=== PATIENT | female | born 1990 | race Caucasian/White ===

== ENCOUNTER → 2016-04-23 | Outpatient (CLI) | payer OTHER ==
[~2016-04-23] MED LIST: IBUP600T26 PO; PERC5TAB6 PO; PRENTAB40 PO; TRAM50TA2 PO; TYLE325T5 PO
--- NOTE | 2016-05-01 00:03 | ECWPNPC ---
PATIENT NAME: MARTÍN GILLIS : 1990 GENDER: FEMALE VISIT DATE: 04/23/2016 DISCHARGE DATE: 04/23/16 1218 VISIT LOCKED DATE TIME: PHYSICIAN: AURELIO PICHARDO RESOURCE: AURELIO PICHARDO REASON FOR APPOINTMENT 1. LOW BACK PAIN HISTORY OF PRESENT ILLNESS FALL RISK SCREENIN25 Y/O FEMALE WITH HX OF CHRONIC LBP WITH RADIATION DOWN RIGHT LEG.NOTICED IT INTERMITTENTLY APROXIMATLEY 5 YEARS AGO.TWO YEARS AGO DURING AND AFTER VAGINAL DELIVERY PAIN GOT WORSE.HAD LESI X3 PER PATIENT AT [facility] APROXIMATLEY 6MOS AGO WITH ONLY MILD IMPROVEMENT FOR A SHORT TIME.TWO WEEKS AGO AFTER LIFTING HER SON SHE HAD IMMEDIATE INCREASE IN LOW BACK PAIN WITH SHOOTING PAIN DOWN POSTERIOR RIGHT LEG.RATING PAIN VAS 8/10.DENIESBOWEL OR BLADDER CHANGES.NO RECENT FEVER ILLNESS OR WEIGHT LOSS.USING TRAMADOL PRN PRESCRIBED BY DR. SIU BUT FINDS IT INEFFECTIVE. SCREENING :NO FALLS IN THE PAST YEAR PAIN SCREENING: PATIENT HAS A COMPLAINT OF ACUTE OR CHRONIC PAIN YES CURRENT MEDICATIONS TAKING IBUPROFEN 200 MG TABLET 3 TABLETS ORALLY EVERY 6 HRS PRN TAKING TRAMADOL HCL 50 MG TABLET 2 TABLETS ORALLY EVERY 6 HRS PRN TAKING ORSYTHIA 0.1-20 MG-MCG TABLET ORALLY TAKING ZZZQUIL 50 MG/30ML LIQUID ORALLY BEFORE BEDTIME DISCONTINUED CIPRO 500 MG TABLET 1 TABLET ORALLY EVERY 12 HRS DISCONTINUED PERCOCET 10-650 MG TABLET 1 TABLET NEEDED ORALLY EVERY 6 HRS DISCONTINUED ZOFRAN ODT 4 MG TABLET DISPERSIBLE DIRECTED ORALLY DISCONTINUED STOOL SOFTENER 100 MG CAPSULE 2 CAPSULE ORALLY ONCE A DAY MEDICATION LIST REVIEWED AND RECONCILED WITH THE PATIENT PAST MEDICAL HISTORY KIDNEY STONES GERD HYPERTENSION WHILE PREG. ABNORMAL EKG'S --SEES [facility] ALLERGIES BACTRIM: PERSONALITY CHANGE: ALLERGY CEFZIL: HIVES: ALLERGY SURGICAL HISTORY TYMPANOSTOMY TUBE INSERTION 1993 ARTHROSCOPIC ANKLE SURGERY RIGHT 2007 UPPER ENDOSCOPY 2012 CHOLECYSTECTOMY 2013 APPENDECTOMY 2013 LUMBAR LAMINECTOMY 02/21/15 FAMILY HISTORY FATHER: 44 YRS, DIAGNOSED WITH HYPERTENSION, HEART DISEASE MOTHER: ALIVE, DIAGNOSED WITH OTHER SIBLINGS: ALIVE 1 BROTHER(S) - HEALTHY. 1 SON(S) - HEALTHY. MOM--SKIN CANCER AND BACK PROBLEMS. SOCIAL HISTORY GENERAL: TOBACCO USE ARE YOU A:CURRENT SMOKER HOW MANY CIGARETTES A DAY DO YOU SMOKE?11-20 HOW SOON AFTER YOU WAKE UP DO YOU SMOKE YOUR FIRST CIGARETTE?6-30 MIN PATIENT COUNSELED ON THE DANGERS OF TOBACCO USE AND URGED TO QUIT:04/23/2016 ARE YOU INTERESTED IN QUITTING?NOT READY TO QUIT COUNSELED THE PATIENT ON SMOKING EFFECTS, EDUCATION [id number]/2017 ALCOHOL SCREENING POINTS0 INTERPRETATIONNEGATIVE RECREATIONAL DRUG USE DENIES. CAFFEINE 2-5/DAY. OCCUPATION: UNEMPLOYED. DIET: REGULAR. EXERCISE: WALKS. MARITAL STATUS: SINGLE. NONDENOMINATIONAL: NO ZOROASTRIANISM BELIEFS THAT WOULD IMPACT HEALTH CARE. LANGUAGE: BELIZEAN. EDUCATION: SOME COLLEGE PLAN OF CARE FOR PAIN CENTER REVIEWED WITH PAT. AND SHE VERBALIZED UNDERSTANDING.. LEARNING BARRIERS / SPECIAL NEEDS BARRIERS TO LEARNING?NO HEARING IMPAIRED?NO VISION IMPAIRED?YES :CORRECTIVE LENSES COGNITIVELY IMPAIRED?NO READINESS TO LEARN?YES LEARNING PREFERENCES?YES :DEMONSTRATION/VERBAL INSTRUCTION LEARNING CAPABILITIES PRESENT?NO EMOTIONAL BARRIERS?NO PAIN CLINIC PFS, CLERGY, PUBLIC HEALTH REFERRALS PFS REFERRAL NEEDED?NO CLERGY REFERRAL NEEDED?NO PUBLIC HEALTH REFERRAL NEEDED?NO ADVANCED DIRECTIVES HEALTH CARE PROXY?NO DECLINES INFORMATION AT THIS TIME POWER OF MISSILE CONTROL PILOT?NO DOMESTIC VIOLENCE: NONE. HOSPITALIZATION/MAJOR DIAGNOSTIC PROCEDURE SURGERY RELATED REVIEW OF SYSTEMS CONSTITUTIONAL: ANY CHANGE IN YOUR MEDICAL CONDITION? NO . RECENT ILLNESS DENIES . CHILLS NO . FEVER NO . WEIGHT LOSS DENIES . INFECTION: DO YOU HAVE NEW INFECTIONS? NO . DO YOU HAVE HISTORY OF MRSA? NO . MUSCULOSKELETAL: ANY NEW PATTERNS OF PAIN OR NUMBNESS? NO . SYTEMIC LUPUS NO . GASTROENTEROLOGY: ANY NEW CHANGE IN BOWEL CONTROL? NO . BARRETTS ESOPHAGUS NO . CIRRHOSIS NO . HEPATITIS NO . LIVER FAILURE NO . ACID REFLUX NO . UNEXPLAINED WEIGHT LOSS NO . GENITOURINARY: ANY NEW CHANGE IN BLADDER CONTROL? NO . IS THERE A CHANCE YOU COULD BE ? NO . HEMATOLOGY/LYMPH: DO YOU TAKE ANY BLOOD THINNERS? (FOR EXAMPLE- COUMADIN, PLAVIX, AGGRENOX, PLATEL, PRADAXA, OR XARELTO) NO . WHEN WAS YOUR LAST DOSE? DATE: TIME: . LOW PLATELET COUNT NO . SICKLE CELL DISEASE NO . VON WILLIEBRANDS NO . FACTOR V LEIDEN NO . THALLASEMIA NO . ANEMIA NO . EASY BRUISING NO . NEUROLOGY: HAVE YOU FALLEN IN THE PAST 6 MONTHS? NO . ANY NEW EXTREMITY NUMBNESS OR WEAKNESS? NO . HEAD INJURY NO . DEMENTIA NO . CEREBRAL PALSY NO . MULTIPLE SCLEROSIS NO . DIZZINESS NO . HEADACHE NO . STROKES NO . VERTIGO NO . CARDIOLOGY: DO YOU HAVE A PACEMAKER OR DEFIBRILLATOR? NO . ANGINA NO . HEART ATTACK NO . HEART SURGERY NO . CONGESTIVE HEART FAILURE/FLUID OVERLOAD NO . CHEST PAIN NO, DENIES . HIGH BLOOD PRESSURE NO . IRREGULAR HEART BEAT NO . SHORTNESS OF BREATH DENIES . RESPIRATORY: HAVE YOU BEEN SICK IN THE PAST WEEK? NO . FEVER NO . FLU LIKE SYMPTOMS? NO . CPAP NO . BYPAP NO . ASTHMA NO . EMPHYSEMA NO . CHRONIC LUNG DISEASES NO . SHORTNESS OF BREATH ON EXERTION NO . COUGH NO, DENIES . SHORTNESS OF BREATH DENIES . SNORING NO . INTEGUMENTARY: DO YOU HAVE ANY RASHES OR OPEN SORES? NO . ALLERGIC/IMMUNO: ARE YOU ALLERGIC TO SHELLFISH OR IV DYE? NO . ANY NEW ALLERGIES? NO . PSYCHIATRIC: DO YOU HAVE THOUGHTS OF HURTING YOURSELF OR SOMEONE ELSE? NO . ARE YOU ABUSED, NEGLECTED, OR IN AN UNSAFE ENVIRONMENT? NO . ENDOCRINOLOGY: ARE YOU DIABETIC? NO . THYROID DISORDER NO . OTHER: DO YOU NEED ANY PRESCRIPTIONS? NO . IF YES, PLEASE LIST: ____ . ANY NEW PROBLEMS WITH YOUR MEDICATIONS? NO . WHEN DID YOU LAST EAT? ____ . WHEN DID YOU LAST DRINK? ____ . WHAT DID YOU LAST DRINK? ____ . NAME OF PERSON DRIVING YOU HOME? ____ . DO YOU HAVE ANY OTHER QUESTIONS OR CONCERNS NO . REVIEWED BY: PROVIDER: AURELIO ESQUIVEL . VITAL SIGNS WT 143 LBS, HT 5'5", BMI 23.79 INDEX, BP 131/81 MM HG, HR 83 /MIN, RR 16 /MIN, TEMP 97.7 F, OXYGEN SAT % 100, REVIEWED BY: OLEKSANDR, LMP: 04/04/16. EXAMINATION GENERAL EXAMINATION: LUNGS:LUNG SOUNDS ARE CLEAR. HEART:HEART RATE REGULAR. MUSCULOSKELETAL:*, MUSCLE STRENGTH TESTING 5/5 BILATERAL LOWER EXTREMITIES., PALPATION: POSITIVE FOR PAIN OVER L/S SPINE. POSITIVE FOR PAIN OVER L/S PARASPINALS.SPECIFIC POINT TENDERNESS NOTED OVER RIGHT SIJ.. DIAGNOSTIC:MRI L/S [id number]-[id number] . ASSESSMENTS SACROILIAC JOINT PAIN - M53.3 (PRIMARY) TREATMENT SACROILIAC JOINT PAIN STOP TRAMADOL HCL TABLET, 50 MG, 2 TABLETS, ORALLY, EVERY 6 HRS PRN START SOMA TABLET, 350 MG, 1 TABLET NEEDED, ORALLY, BEFORE BEDTIME PRN MDD1, 30 DAY(S), 30, REFILLS 0 START PERCOCET TABLET, 5-325 MG, 1 TABLET NEEDED, ORALLY, Q8H PRN MDD3, 30 DAY(S), 45, REFILLS 0 INJECTION ANESTHETIC SACROILIAC JOINT PREVENTIVE MEDICINE PAIN CLINIC TEACHING: PROCEDURE TEACHING PRINTED INFORMATION ON SIJ INJECTION PROVIDED AND REVIEWED WITH PATIENT. PATIENT GIVEN OPPORTUNITY TO ASK QUESTIONS.. MEDITATION PATIENT DECLINED PRINTED INFORMATION ON SOMA AND PERCOCET. INFORMATION ON MEDICATIONS WERE REVIEWED WITH PATIENT AND SHE VERBALIZED UNDERSTANDING. PATIENT GIVEN OPPORTUNITY TO ASK QUESTIONS.. PROCEDURE CODES FA211 ESTABILISHED PATIENT LOCATED WITHIN [facility] CHARGE DISPOSITION & COMMUNICATION FOLLOW UP 2WK POST (REASON: RIGHT SIJ) ELECTRONICALLY SIGNED BY ALVIN NIELSON ON 04/30/2016 AT 05:03 PM EST DISCLAIMER : THIS IS A VISIT SUMMARY EXTRACTED FROM THE [employer] CHART. IT IS NOT A COPY OF THE [employer] PROGRESS NOTE. THAI
== END ==
LOC: M PAIN 11:20
PROVIDERS: ATTEND Nurse Practitioner Family
DX: M53.3 Sacrococcygeal disorders, not elsewhere classified (principal); G89.29 Other chronic pain; M54.5 Low back pain; Z79.891 Long term (current) use of opiate analgesic; Z79.2 Long term (current) use of antibiotics; Z79.3 Long term (current) use of hormonal contraceptives; Z72.0 Tobacco use; Z86.79 Personal history of other diseases of the circulatory system; K21.9 Gastro-esophageal reflux disease without esophagitis; Z87.442 Personal history of urinary calculi; Z87.59 Personal history of other complications of pregnancy, childbirth and the puerperium; Z88.1 Allergy status to other antibiotic agents

== ENCOUNTER → 2016-05-03 | Outpatient (REF) | payer OTHER | LOC: M LAB REF 11:15 | PROVIDERS: ATTEND Physician Assistant Medical | DX: R50.9 Fever, unspecified (principal) ==

== ENCOUNTER → 2016-05-28 | Outpatient (REF) | payer OTHER | LOC: M SMT 17:03 | PROVIDERS: ATTEND Nurse Practitioner Women's Health | DX: R30.0 Dysuria (principal) ==

== ENCOUNTER → 2016-07-13 | Outpatient (CLI) | payer OTHER ==
[~2016-07-13] MED LIST changes: +BUPIVACAINE HCL 0.25% 30 ML VIAL As Ordered ONE; +ISOVUE-M 300 61% 15ML VIAL (Q9967) As Ordered ONE; +LIDOCAINE 1% SDV INJ 30 ML VIAL As Ordered ONE; +TRIAMCINOLONE ACETONIDE SUSP 40 MG/ML VIAL (J3301) As Ordered ONE; +diazePAM 5 MG TAB As Ordered ONE; +oxyCODONE 5MG TAB As Ordered ONE
--- NOTE | 2016-07-13 17:48 | REP ---
Partial SI joint series: Five views: History: Bilateral SI joint injection for pain. 20 seconds of fluoroscopy time is reported. Findings: A sequence of five fluoroscopically obtained intraprocedural spot radiographs of the SI joints document needle positions and contrast injections associated with SI joint injection procedure. Signed by Moreno Emanuel MD 07/13/2016 06:21 P
--- NOTE | 2016-07-25 23:42 | ECWPNPC ---
PATIENT NAME: MARTÍN GILLIS : 1990 GENDER: FEMALE VISIT DATE: 07/13/2016 DISCHARGE DATE: 07/13/16 1432 VISIT LOCKED DATE TIME: PHYSICIAN: NANCY FUNG RESOURCE: NANCY FUNG REASON FOR APPOINTMENT 1. RIGHT SIJ HISTORY OF PRESENT ILLNESS HISTORY OF PRESENT ILLNESS: PAIN THE PATIENT DESCRIBES THE PAIN... FALL RISK SCREENING: SCREENING :NO FALLS IN THE PAST YEAR CURRENT MEDICATIONS TAKING LIDOCAINE HCL JELLY LONGTERM 2 % JELLY 1 APPLICATION TO AFFECTED AREA NEEDED INTRAVESICALLY PRIOR TO PROCEDURE TAKING IBUPROFEN 200 MG TABLET 3 TABLETS ORALLY EVERY 6 HRS PRN, NOTES: 2 DAYS OR SO TAKING ZZZQUIL 50 MG/30ML LIQUID ORALLY BEFORE BEDTIME, NOTES: 2 NIGHTS AGO TAKING PREVIFEM 0.25-35 MG-MCG TABLET 1 TABLET ORALLY ONCE A DAY, NOTES: 2030PM 07/12/16 TAKING TRAMADOL HCL 50 MG TABLET 2 ORALLY Q6H PRN MDD4, NOTES: 0900 07/13/16 NOT-TAKING PERCOCET 5-325 MG TABLET 1 TABLET NEEDED ORALLY Q8H PRN MDD3 NOT-TAKING CIPRO 500 MG TABLET 1 TABLET ORALLY DIRECTED NOT-TAKING SOMA 350 MG TABLET 1 TABLET NEEDED ORALLY BEFORE BEDTIME PRN MDD1 NOT-TAKING ORSYTHIA 0.1-20 MG-MCG TABLET ORALLY NOT-TAKING ROBAXIN 500 MG TABLET 1 ORALLY Q8H PRN MDD3 MEDICATION LIST REVIEWED AND RECONCILED WITH THE PATIENT PAST MEDICAL HISTORY KIDNEY STONES GERD HYPERTENSION WHILE PREG. ABNORMAL EKG'S --SEES [facility] ALLERGIES BACTRIM: PERSONALITY CHANGE: ALLERGY CEFZIL: HIVES: ALLERGY REVIEW OF SYSTEMS CONSTITUTIONAL: ANY CHANGE IN YOUR MEDICAL CONDITION? NO . CHILLS NO . FEVER NO . INFECTION: DO YOU HAVE NEW INFECTIONS? NO . DO YOU HAVE HISTORY OF MRSA? NO . MUSCULOSKELETAL: ANY NEW PATTERNS OF PAIN OR NUMBNESS? NO . GASTROENTEROLOGY: ANY NEW CHANGE IN BOWEL CONTROL? NO . GENITOURINARY: ANY NEW CHANGE IN BLADDER CONTROL? NO . IS THERE A CHANCE YOU COULD BE ? NO . HEMATOLOGY/LYMPH: DO YOU TAKE ANY BLOOD THINNERS? (FOR EXAMPLE- COUMADIN, PLAVIX, AGGRENOX, PLATEL, PRADAXA, OR XARELTO) NO . WHEN WAS YOUR LAST DOSE? DATE: TIME: . NEUROLOGY: HAVE YOU FALLEN IN THE PAST 6 MONTHS? NO . ANY NEW EXTREMITY NUMBNESS OR WEAKNESS? NO . CARDIOLOGY: DO YOU HAVE A PACEMAKER OR DEFIBRILLATOR? NO . RESPIRATORY: HAVE YOU BEEN SICK IN THE PAST WEEK? NO . FEVER NO . FLU LIKE SYMPTOMS? NO . COUGH NO . INTEGUMENTARY: DO YOU HAVE ANY RASHES OR OPEN SORES? NO . ALLERGIC/IMMUNO: ARE YOU ALLERGIC TO SHELLFISH OR IV DYE? NO . ANY NEW ALLERGIES? NO . PSYCHIATRIC: DO YOU HAVE THOUGHTS OF HURTING YOURSELF OR SOMEONE ELSE? NO . ARE YOU ABUSED, NEGLECTED, OR IN AN UNSAFE ENVIRONMENT? NO . ENDOCRINOLOGY: ARE YOU DIABETIC? NO . OTHER: DO YOU NEED ANY PRESCRIPTIONS? NO . IF YES, PLEASE LIST: ____ . ANY NEW PROBLEMS WITH YOUR MEDICATIONS? NO . WHEN DID YOU LAST EAT? 1200 AM . WHEN DID YOU LAST DRINK? 4 AM . WHAT DID YOU LAST DRINK? SIP OF JUICE . NAME OF PERSON DRIVING YOU HOME? CAESAR . DO YOU HAVE ANY OTHER QUESTIONS OR CONCERNS NO . REVIEWED BY: PROVIDER: . VITAL SIGNS WT 144 LBS, HT 5'5", BMI 23.96 INDEX, BP 122/83 MM HG, HR 98 /MIN, RR 16 /MIN, TEMP 97.7 F, OXYGEN SAT % 99%, NA INITIALS SC 11:51, REVIEWED BY: NL. ASSESSMENTS SACROILIITIS, NOT ELSEWHERE CLASSIFIED - M46.1 (PRIMARY) PROCEDURES PN SI PRE PROCEDURE DIAGNOSIS SACROILIITIS, SACROILIAC JOINT DYSFUNCTION POST PROCEDURE DIAGNOSIS SACROILIITIS, SACROILIAC JOINT DYSFUNCTION PROCEDURE BILATERAL SACROILIAC JOINT BLOCK SURGEON DR. NANCY FUNG COATER NONE ANESTHESIA LOCAL PRE PROCEDURE NOTE PATIENT WITH HISTORY OF CHRONIC LOW BACK PAIN. I EVALUATED THE PATIENT AND REVIEWED THE CHART. I WENT OVER THE RISKS, ALTERNATIVES, AND BENEFITS ASSOCIATED WITH THIS PROCEDURE. THE PATIENT WOULD LIKE TO PROCEED AND GAVE CONSENT TO PERFORM THE PROCEDURE. THE PATIENT DENIES UNEXPLAINABLE WEIGHT LOSS, FEVER, CHILLS, OR NEW CHANGES IN URINARY OR BOWEL CONTROL DESCRIPTION OF PROCEDURE THE PATIENT WAS BROUGHT TO THE PROCEDURE ROOM AND PLACED IN THE PRONE POSITION. THE LUMBOSACRAL AREA WAS CLEANED WITH CHLORAPREP SOLUTION AND DRAPED ASEPTICALLY. THE PROCEDURE WAS DONE UNDER STERILE CONDITIONS. I CHECKED LATERALITY AND THE LEVEL WHERE THE PROCEDURE WAS GOING TO BE PERFORMED WITH THE PATIENT AND THE SUPPORTING STAFF AT THE MOMENT OF THE TIME OUT IN THE PROCEDURE ROOM. UNDER FLUOROSCOPIC GUIDANCE, TARGET POINT WAS SELECTED AT THE LOWER BORDER OF THE RIGHT AND LEFT SACROILIAC JOINT. TARGET POINT WAS SELECTED AFTER MEDIAL ROTATION AND TILT OF THE MAGNIFIER OF THE C-ARM. LIDOCAINE WAS USED TO NUMB THE SKIN AND SUBCUTANEOUS TISSUE BELOW IT. A SPINAL NEEDLE, 22-GAUGE, WAS ADVANCED UNDER FLUOROSCOPIC GUIDANCE AND FOLLOWING PATIENT FEEDBACK UNTIL THE TARGET AREA WAS TOUCHED. THE POSITION OF THE NEEDLE WAS VERIFIED WITH AP AND LATERAL VIEWS. AFTER PROPER POSITION OF THE NEEDLE WAS ACHIEVED, ISOVUE M DYE 30%, 0.25 ML, WAS INJECTED SHOWING SPREAD OF THE DYE. THEN, A SOLUTION OF 20 MG OF KENALOG WAS INJECTED IN RIGHT JOINT WITH 3 ML OF BUPIVACAINE 0.125%. THERE WAS NO EVIDENCE OF BLOOD, PARESTHESIA OR CEREBROSPINAL FLUID DURING THE PROCEDURE. THE PATIENT WAS SENT TO THE RECOVERY ROOM. THE PATIENT WAS MOVING THE EXTREMITIES AND DOING WELL. THERE WAS NO COMPLICATION DURING THE PROCEDURE. FLUOROSCOPY TIME WAS 20 SECONDS POST PROCEDURE NOTE THE PATIENT WILL BE SEEN IN A FOLLOW UP IN THE NEXT FEW WEEKS. INSTRUCTIONS WERE GIVEN, QUESTIONS WERE ANSWERED, AND THE PATIENT EXPRESSED UNDERSTANDING AND AGREED WITH THE PLAN. I, JADON IBRAHIM, DOCUMENTED THE ABOVE INFORMATION ACTING A SCRIBE FOR DR. FUNG. I HAVE REVIEWED THE ABOVE DOCUMENT, WRITTEN BY JADON AGUILAR AND I VERIFY THAT IT IS [facility] FLUORO GUIDANCE (PAIN)[id number] PROCEDURE CODES 21156 INJECT SACROILIAC JOINT 6045F RADXPS IN END [id number] PXD DISPOSITION & COMMUNICATION FOLLOW UP 3 WEEKS ELECTRONICALLY SIGNED BY NANCY FUNG MD ON 07/25/2016 AT 06:45 PM EDT DISCLAIMER : THIS IS A VISIT SUMMARY EXTRACTED FROM THE [employer] CHART. IT IS NOT A COPY OF THE [employer] PROGRESS NOTE. MTDD
== END ==
LOC: M PAIN 11:40
PROVIDERS: ATTEND Anesthesiology
DX: G89.29 Other chronic pain (principal); M54.5 Low back pain; M46.1 Sacroiliitis, not elsewhere classified; Z79.891 Long term (current) use of opiate analgesic; Z79.899 Other long term (current) drug therapy; K21.9 Gastro-esophageal reflux disease without esophagitis; N20.0 Calculus of kidney; Z88.1 Allergy status to other antibiotic agents
CPT/HCPCS: G0260; J3301; Q9967

== ENCOUNTER → 2016-08-06 | Outpatient (CLI) | payer OTHER ==
[~2016-08-06] MED LIST changes: -BUPIVACAINE HCL 0.25% 30 ML VIAL As Ordered ONE; -ISOVUE-M 300 61% 15ML VIAL (Q9967) As Ordered ONE; -LIDOCAINE 1% SDV INJ 30 ML VIAL As Ordered ONE; -TRIAMCINOLONE ACETONIDE SUSP 40 MG/ML VIAL (J3301) As Ordered ONE; -diazePAM 5 MG TAB As Ordered ONE; -oxyCODONE 5MG TAB As Ordered ONE
--- NOTE | 2016-08-26 01:29 | ECWPNPC ---
PATIENT NAME: MARTÍN GILLIS : 1990 GENDER: FEMALE VISIT DATE: 08/06/2016 DISCHARGE DATE: 08/06/16 1541 VISIT LOCKED DATE TIME: PHYSICIAN: AURELIO PICHARDO RESOURCE: AURELIO PICHARDO REASON FOR APPOINTMENT 1. POST PROCEDURE HISTORY OF PRESENT ILLNESS HISTORY OF PRESENT ILLNESS: HERE FOR POST PROCEDURE F/U.HAD RIGHT SIJ ON 07-13-16.HISTORY OF LOW BACK PAIN AND RIGHT LEG PAIN.REPORTS SMALL AMOUNT OF RELIEF X 2 WEEKS.RATING PAIN VAS 7/10.CURRENTLY USING TRAMADOL 4-6 TABLETS PER DAY AND HAS BEEN USING THIS AMOUNT FOR SEVERAL YEARS.DISCUSSED POTENTIAL ADVERSE EFFECTS OF CHRONIC DAILY OPIOD EXPOSURE.SHE IS WILLING TO CUT BACK . PAIN THE PATIENT DESCRIBES THE PAIN... FALL RISK SCREENING: SCREENING :NO FALLS IN THE PAST YEAR CURRENT MEDICATIONS TAKING IBUPROFEN 200 MG TABLET 3 TABLETS ORALLY EVERY 6 HRS PRN, NOTES: 2 DAYS OR SO TAKING ZZZQUIL 50 MG/30ML LIQUID ORALLY BEFORE BEDTIME, NOTES: 2 NIGHTS AGO TAKING PREVIFEM 0.25-35 MG-MCG TABLET 1 TABLET ORALLY ONCE A DAY, NOTES: 2030PM 07/12/16 TAKING TRAMADOL HCL 50 MG TABLET 2 ORALLY Q6H PRN MDD4, NOTES: 0900 07/13/16 NOT-TAKING LIDOCAINE HCL JELLY MCFP 2 % JELLY 1 APPLICATION TO AFFECTED AREA NEEDED INTRAVESICALLY PRIOR TO PROCEDURE NOT-TAKING PERCOCET 5-325 MG TABLET 1 TABLET NEEDED ORALLY Q8H PRN MDD3 NOT-TAKING CIPRO 500 MG TABLET 1 TABLET ORALLY DIRECTED NOT-TAKING SOMA 350 MG TABLET 1 TABLET NEEDED ORALLY BEFORE BEDTIME PRN MDD1 NOT-TAKING ORSYTHIA 0.1-20 MG-MCG TABLET ORALLY NOT-TAKING ROBAXIN 500 MG TABLET 1 ORALLY Q8H PRN MDD3 MEDICATION LIST REVIEWED AND RECONCILED WITH THE PATIENT PAST MEDICAL HISTORY KIDNEY STONES GERD HYPERTENSION WHILE PREG. ABNORMAL EKG'S --SEES [facility] ALLERGIES BACTRIM: PERSONALITY CHANGE: ALLERGY CEFZIL: HIVES: ALLERGY SURGICAL HISTORY TYMPANOSTOMY TUBE INSERTION 1993 ARTHROSCOPIC ANKLE SURGERY RIGHT 2007 UPPER ENDOSCOPY 2012 CHOLECYSTECTOMY 2013 APPENDECTOMY 2013 LUMBAR LAMINECTOMY 02/21/15 HOSPITALIZATION/MAJOR DIAGNOSTIC PROCEDURE SURGERY RELATED REVIEW OF SYSTEMS CONSTITUTIONAL: ANY CHANGE IN YOUR MEDICAL CONDITION? NO . CHILLS NO . FEVER NO . INFECTION: DO YOU HAVE NEW INFECTIONS? NO . DO YOU HAVE HISTORY OF MRSA? NO . MUSCULOSKELETAL: ANY NEW PATTERNS OF PAIN OR NUMBNESS? YES. PT STATES R SIJ DONE 07/13/16. PRE PROCEDURE PAIN WAS 8/10. POST PROCEDURE 07/15, CREEPING UP TO 09/14 . GASTROENTEROLOGY: ANY NEW CHANGE IN BOWEL CONTROL? NO . GENITOURINARY: ANY NEW CHANGE IN BLADDER CONTROL? NO . IS THERE A CHANCE YOU COULD BE ? NO . HEMATOLOGY/LYMPH: DO YOU TAKE ANY BLOOD THINNERS? (FOR EXAMPLE- COUMADIN, PLAVIX, AGGRENOX, PLATEL, PRADAXA, OR XARELTO) NO . WHEN WAS YOUR LAST DOSE? DATE: TIME: . NEUROLOGY: HAVE YOU FALLEN IN THE PAST 6 MONTHS? NO . ANY NEW EXTREMITY NUMBNESS OR WEAKNESS? NO . CARDIOLOGY: DO YOU HAVE A PACEMAKER OR DEFIBRILLATOR? NO . RESPIRATORY: HAVE YOU BEEN SICK IN THE PAST WEEK? NO . FEVER NO . FLU LIKE SYMPTOMS? NO . COUGH NO . INTEGUMENTARY: DO YOU HAVE ANY RASHES OR OPEN SORES? NO . ALLERGIC/IMMUNO: ARE YOU ALLERGIC TO SHELLFISH OR IV DYE? NO . ANY NEW ALLERGIES? NO . PSYCHIATRIC: DO YOU HAVE THOUGHTS OF HURTING YOURSELF OR SOMEONE ELSE? NO . ARE YOU ABUSED, NEGLECTED, OR IN AN UNSAFE ENVIRONMENT? NO . ENDOCRINOLOGY: ARE YOU DIABETIC? NO . OTHER: DO YOU NEED ANY PRESCRIPTIONS? YES, TRAMADOL . IF YES, PLEASE LIST: ____ . ANY NEW PROBLEMS WITH YOUR MEDICATIONS? NO . WHEN DID YOU LAST EAT? ____ . WHEN DID YOU LAST DRINK? ____ . WHAT DID YOU LAST DRINK? ____ . NAME OF PERSON DRIVING YOU HOME? ____ . DO YOU HAVE ANY OTHER QUESTIONS OR CONCERNS NO . REVIEWED BY: PROVIDER: AURELIO ESQUIVEL . VITAL SIGNS WT 143.0 LBS, HT 5'5", BMI 23.79 INDEX, BP 128/84 MM HG, HR 77 /MIN, RR 16 /MIN, TEMP 98.3 F, OXYGEN SAT % 98%, SAFE IN ENV? (Y/N) Y, NA INITIALS TL 1445, REVIEWED BY: EM. EXAMINATION GENERAL EXAMINATION: LUNGS:LUNG SOUNDS ARE CLEAR. HEART:HEART RATE REGULAR. MUSCULOSKELETAL:*, MUSCLE STRENGTH TESTING 5/5 BILATERAL LOWER EXTREMITIES., PALPATION: POSITIVE FOR PAIN OVER L/S SPINE. POSITIVE FOR PAIN OVER L/S PARASPINALS.SPECIFIC POINT TENDERNESS NOTED OVER RIGHT SIJ.. DIAGNOSTIC:MRI L/S [id number]--REVIEWED . ASSESSMENTS SACROILIAC JOINT PAIN - M53.3 (PRIMARY) POST LAMINECTOMY SYNDROME - M96.1 TREATMENT SACROILIAC JOINT PAIN REFILL TRAMADOL HCL TABLET, 50 MG, 2, ORALLY, Q6H PRN MDD4, 30 DAY(S), 120, REFILLS 0, NOTES: 0900 07/13/16 NOTES: REQUEST RIGHT SIJ. PROCEDURE CODES FA211 ESTABILISHED PATIENT [facility] CHARGE DISPOSITION & COMMUNICATION FOLLOW UP 2WK POST (REASON: REQUEST RIGHT SIJ) ELECTRONICALLY SIGNED BY ALVIN NIELSON ON 08/25/2016 AT 05:05 PM EDT DISCLAIMER : THIS IS A VISIT SUMMARY EXTRACTED FROM THE [employer] CHART. IT IS NOT A COPY OF THE [employer] PROGRESS NOTE. THAI
== END ==
LOC: M PAIN 14:40
PROVIDERS: ATTEND Nurse Practitioner Family
DX: M53.3 Sacrococcygeal disorders, not elsewhere classified (principal); M96.1 Postlaminectomy syndrome, not elsewhere classified; Z79.891 Long term (current) use of opiate analgesic; Z79.899 Other long term (current) drug therapy; Z88.1 Allergy status to other antibiotic agents

== ENCOUNTER → 2016-08-17 | Outpatient (CLI) | payer OTHER ==
[~2016-08-17] MED LIST changes: +BUPIVACAINE HCL 0.25% 30 ML VIAL As Ordered ONE; +IBUP-1022 PO; -IBUP600T26 PO; +ISOVUE-M 300 61% 15ML VIAL (Q9967) As Ordered ONE; +LIDOCAINE 1% SDV INJ 30 ML VIAL As Ordered ONE; +PERC5TAB12 PO; -PERC5TAB6 PO; +TRIAMCINOLONE ACETONIDE SUSP 40 MG/ML VIAL (J3301) As Ordered ONE; +diazePAM 5 MG TAB As Ordered ONE; +oxyCODONE 5MG TAB As Ordered ONE
--- NOTE | 2016-08-17 14:44 | REP ---
FLUOROSCOPIC GUIDANCE: The images were reviewed with Dr. Cam. The patient has a history of low back pain. The portable C-arm was provided in the OR for Dr. Hernandez for fluoroscopic guidance. Two intraoperative fluoroscopic spot films are obtained for needle placement verification for right sacroiliac joint injection. The films are on the PACS system and are available for review. 18 seconds of fluoroscopy time was utilized for this procedure. Reviewed by ELISABETH Valentin 08/17/2016 05:04 PEdited and Signed by Sekou Cam MD 08/17/2016 05:15 P
--- NOTE | 2016-08-29 00:06 | ECWPNPC ---
PATIENT NAME: MARTÍN GILLIS : 1990 GENDER: FEMALE VISIT DATE: 08/17/2016 DISCHARGE DATE: 08/17/16 1155 VISIT LOCKED DATE TIME: PHYSICIAN: NANCY UFNG RESOURCE: NANCY FUNG REASON FOR APPOINTMENT 1. RIGHT SIJ HISTORY OF PRESENT ILLNESS HISTORY OF PRESENT ILLNESS: PAIN THE PATIENT DESCRIBES THE PAIN... FALL RISK SCREENING: SCREENING :NO FALLS IN THE PAST YEAR CURRENT MEDICATIONS TAKING IBUPROFEN 200 MG TABLET 3 TABLETS ORALLY EVERY 6 HRS PRN, NOTES: 08-15-16 0900 TAKING ZZZQUIL 50 MG/30ML LIQUID ORALLY BEFORE BEDTIME, NOTES: 2100 TAKING PREVIFEM 0.25-35 MG-MCG TABLET 1 TABLET ORALLY ONCE A DAY, NOTES: 08-17-16 0600 TAKING TRAMADOL HCL 50 MG TABLET 2 ORALLY Q6H PRN MDD4, NOTES: 08-16-16 1800 NOT-TAKING LIDOCAINE HCL JELLY CHCF 2 % JELLY 1 APPLICATION TO AFFECTED AREA NEEDED INTRAVESICALLY PRIOR TO PROCEDURE NOT-TAKING PERCOCET 5-325 MG TABLET 1 TABLET NEEDED ORALLY Q8H PRN MDD3 NOT-TAKING CIPRO 500 MG TABLET 1 TABLET ORALLY DIRECTED NOT-TAKING SOMA 350 MG TABLET 1 TABLET NEEDED ORALLY BEFORE BEDTIME PRN MDD1 NOT-TAKING ORSYTHIA 0.1-20 MG-MCG TABLET ORALLY NOT-TAKING ROBAXIN 500 MG TABLET 1 ORALLY Q8H PRN MDD3 MEDICATION LIST REVIEWED AND RECONCILED WITH THE PATIENT PAST MEDICAL HISTORY KIDNEY STONES GERD HYPERTENSION WHILE PREG. ABNORMAL EKG'S --SEES [facility] ALLERGIES BACTRIM: PERSONALITY CHANGE: ALLERGY CEFZIL: HIVES: ALLERGY REVIEW OF SYSTEMS REVIEWED BY: PROVIDER: . CONSTITUTIONAL: ANY CHANGE IN YOUR MEDICAL CONDITION? NO . CHILLS NO . FEVER NO . INFECTION: DO YOU HAVE NEW INFECTIONS? NO . DO YOU HAVE HISTORY OF MRSA? NO . MUSCULOSKELETAL: ANY NEW PATTERNS OF PAIN OR NUMBNESS? NO . GASTROENTEROLOGY: ANY NEW CHANGE IN BOWEL CONTROL? NO . GENITOURINARY: ANY NEW CHANGE IN BLADDER CONTROL? NO . IS THERE A CHANCE YOU COULD BE ? NO . HEMATOLOGY/LYMPH: DO YOU TAKE ANY BLOOD THINNERS? (FOR EXAMPLE- COUMADIN, PLAVIX, AGGRENOX, PLATEL, PRADAXA, OR XARELTO) NO . WHEN WAS YOUR LAST DOSE? DATE: TIME: . NEUROLOGY: HAVE YOU FALLEN IN THE PAST 6 MONTHS? NO . ANY NEW EXTREMITY NUMBNESS OR WEAKNESS? NO . CARDIOLOGY: DO YOU HAVE A PACEMAKER OR DEFIBRILLATOR? NO . RESPIRATORY: HAVE YOU BEEN SICK IN THE PAST WEEK? NO . FEVER NO . FLU LIKE SYMPTOMS? NO . COUGH NO . INTEGUMENTARY: DO YOU HAVE ANY RASHES OR OPEN SORES? NO . ALLERGIC/IMMUNO: ARE YOU ALLERGIC TO SHELLFISH OR IV DYE? NO . ANY NEW ALLERGIES? NO . PSYCHIATRIC: DO YOU HAVE THOUGHTS OF HURTING YOURSELF OR SOMEONE ELSE? NO . ARE YOU ABUSED, NEGLECTED, OR IN AN UNSAFE ENVIRONMENT? NO . ENDOCRINOLOGY: ARE YOU DIABETIC? NO . OTHER: DO YOU NEED ANY PRESCRIPTIONS? NO . IF YES, PLEASE LIST: ____ . ANY NEW PROBLEMS WITH YOUR MEDICATIONS? NO . WHEN DID YOU LAST EAT? 2 AM . WHEN DID YOU LAST DRINK? 2 AM . WHAT DID YOU LAST DRINK? TEA . NAME OF PERSON DRIVING YOU HOME? CAESAR . DO YOU HAVE ANY OTHER QUESTIONS OR CONCERNS NO . VITAL SIGNS WT 146.0 LBS, HT 5'5", BMI 24.29 INDEX, BP 118/67 MM HG, HR 106/68 /MIN, RR 16 /MIN, TEMP 98.7 F, OXYGEN SAT % 98%, NA INITIALS TL 0926, REVIEWED BY: KG. ASSESSMENTS SACROILIITIS, NOT ELSEWHERE CLASSIFIED - M46.1 (PRIMARY) PROCEDURES PN SI PRE PROCEDURE DIAGNOSIS SACROILIITIS, SACROILIAC JOINT DYSFUNCTION POST PROCEDURE DIAGNOSIS SACROILIITIS, SACROILIAC JOINT DYSFUNCTION PROCEDURE RIGHT SACROILIAC JOINT BLOCK SURGEON DR. NANCY FUNG LEAD PROCESS ENGINEER NONE ANESTHESIA LOCAL PRE PROCEDURE NOTE PATIENT WITH HISTORY OF CHRONIC LOW BACK PAIN. I EVALUATED THE PATIENT AND REVIEWED THE CHART. I WENT OVER THE RISKS, ALTERNATIVES, AND BENEFITS ASSOCIATED WITH THIS PROCEDURE. THE PATIENT WOULD LIKE TO PROCEED AND GAVE CONSENT TO PERFORM THE PROCEDURE. THE PATIENT DENIES UNEXPLAINABLE WEIGHT LOSS, FEVER, CHILLS, OR NEW CHANGES IN URINARY OR BOWEL CONTROL DESCRIPTION OF PROCEDURE THE PATIENT WAS BROUGHT TO THE PROCEDURE ROOM AND PLACED IN THE PRONE POSITION. THE LUMBOSACRAL AREA WAS CLEANED WITH CHLORAPREP SOLUTION AND DRAPED ASEPTICALLY. THE PROCEDURE WAS DONE UNDER STERILE CONDITIONS. I CHECKED LATERALITY AND THE LEVEL WHERE THE PROCEDURE WAS GOING TO BE PERFORMED WITH THE PATIENT AND THE SUPPORTING STAFF AT THE MOMENT OF THE TIME OUT IN THE PROCEDURE ROOM. UNDER FLUOROSCOPIC GUIDANCE, TARGET POINT WAS SELECTED AT THE LOWER BORDER OF THE RIGHT SACROILIAC JOINT. TARGET POINT WAS SELECTED AFTER MEDIAL ROTATION AND TILT OF THE MAGNIFIER OF THE C-ARM. LIDOCAINE WAS USED TO NUMB THE SKIN AND SUBCUTANEOUS TISSUE BELOW IT. A SPINAL NEEDLE, 22-GAUGE, WAS ADVANCED UNDER FLUOROSCOPIC GUIDANCE AND FOLLOWING PATIENT FEEDBACK UNTIL THE TARGET AREA WAS TOUCHED. THE POSITION OF THE NEEDLE WAS VERIFIED WITH AP AND LATERAL VIEWS. AFTER PROPER POSITION OF THE NEEDLE WAS ACHIEVED, ISOVUE M DYE 30%, 0.25 ML, WAS INJECTED SHOWING SPREAD OF THE DYE. THEN, A SOLUTION OF 20 MG OF KENALOG WAS INJECTED IN RIGHT JOINT WITH 3 ML OF BUPIVACAINE 0.125%. THERE WAS NO EVIDENCE OF BLOOD, PARESTHESIA OR CEREBROSPINAL FLUID DURING THE PROCEDURE. THE PATIENT WAS SENT TO THE RECOVERY ROOM. THE PATIENT WAS MOVING THE EXTREMITIES AND DOING WELL. THERE WAS NO COMPLICATION DURING THE PROCEDURE. FLUOROSCOPY TIME WAS 18 SECONDS POST PROCEDURE NOTE THE PATIENT WILL BE SEEN IN A FOLLOW UP IN THE NEXT FEW WEEKS. INSTRUCTIONS WERE GIVEN, QUESTIONS WERE ANSWERED, AND THE PATIENT EXPRESSED UNDERSTANDING AND AGREED WITH THE PLAN. I, JADON IBRAHIM, DOCUMENTED THE ABOVE INFORMATION ACTING A SCRIBE FOR DR. FUNG. I, DR. FUNG, HAVE REVIEWED THE ABOVE DOCUMENT, SCRIBED BY JADON IBRAHIM, AND I VERIFY THAT IT IS [facility]NOST[facility] FLUORO GUIDANCE (PAIN)[id number] PROCEDURE CODES 62453 INJECT SACROILIAC JOINT 6045F RADXPS IN END [id number] PXD DISPOSITION & COMMUNICATION FOLLOW UP 3 WEEKS ELECTRONICALLY SIGNED BY NANCY FUNG MD ON 08/28/2016 AT 08:26 AM EDT DISCLAIMER : THIS IS A VISIT SUMMARY EXTRACTED FROM THE [employer] CHART. IT IS NOT A COPY OF THE [employer] PROGRESS NOTE. MTDD
== END ==
LOC: M PAIN 09:00
PROVIDERS: ATTEND Anesthesiology
DX: G89.29 Other chronic pain (principal); M54.5 Low back pain; M46.1 Sacroiliitis, not elsewhere classified; Z79.891 Long term (current) use of opiate analgesic; Z79.3 Long term (current) use of hormonal contraceptives; Z88.1 Allergy status to other antibiotic agents

== ENCOUNTER → 2016-08-31 | Outpatient (CLI) | payer OTHER ==
[~2016-08-31] MED LIST changes: -BUPIVACAINE HCL 0.25% 30 ML VIAL As Ordered ONE; -ISOVUE-M 300 61% 15ML VIAL (Q9967) As Ordered ONE; -LIDOCAINE 1% SDV INJ 30 ML VIAL As Ordered ONE; -TRIAMCINOLONE ACETONIDE SUSP 40 MG/ML VIAL (J3301) As Ordered ONE; -diazePAM 5 MG TAB As Ordered ONE; -oxyCODONE 5MG TAB As Ordered ONE
--- NOTE | 2016-09-01 01:57 | ECWPNPC ---
PATIENT NAME: MARTÍN GILLIS : 1990 GENDER: FEMALE VISIT DATE: 08/31/2016 DISCHARGE DATE: 08/31/16 1615 VISIT LOCKED DATE TIME: PHYSICIAN: AURELIO PICHARDO RESOURCE: AURELIO PICHARDO REASON FOR APPOINTMENT 1. POST SIJ HISTORY OF PRESENT ILLNESS HISTORY OF PRESENT ILLNESS: HERE FOR POST PROCEDURE F/U.HAD RIGHT SIJ ON 08-17-16.REPORTS NO IMPROVEMENT AND SOME AGGREVATION IN PAIN.RATING PAIN VAS 9/10.CURRENTLY USING TRAMADOL 4-6 TABLETS PER DAY AND HAS BEEN USING THIS AMOUNT FOR SEVERAL YEARS.STATES THIS IS HELPFUL.WAS UNABLE TO TOLERATE PERCOCET DUE TO FATIGUE. PAIN THE PATIENT DESCRIBES THE PAIN... THE PATIENT DESCRIBES THE PAIN... FALL RISK SCREENING: SCREENING :NO FALLS IN THE PAST YEAR CURRENT MEDICATIONS TAKING IBUPROFEN 200 MG TABLET 3 TABLETS ORALLY EVERY 6 HRS PRN TAKING ZZZQUIL 50 MG/30ML LIQUID ORALLY BEFORE BEDTIME TAKING PREVIFEM 0.25-35 MG-MCG TABLET 1 TABLET ORALLY ONCE A DAY TAKING TRAMADOL HCL 50 MG TABLET 2 ORALLY Q6H PRN MDD4 TAKING IMITREX 100 MG TABLET 1 TABLET NEEDED ORALLY TWICE A DAY NOT-TAKING LIDOCAINE HCL JELLY MCFP 2 % JELLY 1 APPLICATION TO AFFECTED AREA NEEDED INTRAVESICALLY PRIOR TO PROCEDURE NOT-TAKING PERCOCET 5-325 MG TABLET 1 TABLET NEEDED ORALLY Q8H PRN MDD3 NOT-TAKING CIPRO 500 MG TABLET 1 TABLET ORALLY DIRECTED NOT-TAKING SOMA 350 MG TABLET 1 TABLET NEEDED ORALLY BEFORE BEDTIME PRN MDD1 NOT-TAKING ORSYTHIA 0.1-20 MG-MCG TABLET ORALLY NOT-TAKING ROBAXIN 500 MG TABLET 1 ORALLY Q8H PRN MDD3 MEDICATION LIST REVIEWED AND RECONCILED WITH THE PATIENT PAST MEDICAL HISTORY KIDNEY STONES GERD HYPERTENSION WHILE PREG. ABNORMAL EKG'S --SEES [facility] ALLERGIES BACTRIM: PERSONALITY CHANGE: ALLERGY CEFZIL: HIVES: ALLERGY SURGICAL HISTORY TYMPANOSTOMY TUBE INSERTION 1993 ARTHROSCOPIC ANKLE SURGERY RIGHT 2007 UPPER ENDOSCOPY 2012 CHOLECYSTECTOMY 2013 APPENDECTOMY 2013 LUMBAR LAMINECTOMY 02/21/15 HOSPITALIZATION/MAJOR DIAGNOSTIC PROCEDURE SURGERY RELATED REVIEW OF SYSTEMS REVIEWED BY: PROVIDER: AURELIO PICHARDO MANAGER CREDIT RISK . CONSTITUTIONAL: ANY CHANGE IN YOUR MEDICAL CONDITION? NO . CHILLS NO . FEVER NO . INFECTION: DO YOU HAVE NEW INFECTIONS? NO . DO YOU HAVE HISTORY OF MRSA? NO . MUSCULOSKELETAL: ANY NEW PATTERNS OF PAIN OR NUMBNESS? YES, PT C/O THROBBING IN THIGHS AND CALF AREA . GASTROENTEROLOGY: ANY NEW CHANGE IN BOWEL CONTROL? NO . GENITOURINARY: ANY NEW CHANGE IN BLADDER CONTROL? NO . IS THERE A CHANCE YOU COULD BE ? NO . HEMATOLOGY/LYMPH: DO YOU TAKE ANY BLOOD THINNERS? (FOR EXAMPLE- COUMADIN, PLAVIX, AGGRENOX, PLATEL, PRADAXA, OR XARELTO) NO . WHEN WAS YOUR LAST DOSE? DATE: TIME: . NEUROLOGY: HAVE YOU FALLEN IN THE PAST 6 MONTHS? NO . ANY NEW EXTREMITY NUMBNESS OR WEAKNESS? NO . CARDIOLOGY: DO YOU HAVE A PACEMAKER OR DEFIBRILLATOR? NO . RESPIRATORY: HAVE YOU BEEN SICK IN THE PAST WEEK? NO . FEVER NO . FLU LIKE SYMPTOMS? NO . COUGH NO . INTEGUMENTARY: DO YOU HAVE ANY RASHES OR OPEN SORES? NO . ALLERGIC/IMMUNO: ARE YOU ALLERGIC TO SHELLFISH OR IV DYE? NO . ANY NEW ALLERGIES? NO . PSYCHIATRIC: DO YOU HAVE THOUGHTS OF HURTING YOURSELF OR SOMEONE ELSE? NO . ARE YOU ABUSED, NEGLECTED, OR IN AN UNSAFE ENVIRONMENT? NO . ENDOCRINOLOGY: ARE YOU DIABETIC? NO . OTHER: DO YOU NEED ANY PRESCRIPTIONS? YES, TRAMADOL . IF YES, PLEASE LIST: ____ . ANY NEW PROBLEMS WITH YOUR MEDICATIONS? NO . WHEN DID YOU LAST EAT? ____ . WHEN DID YOU LAST DRINK? ____ . WHAT DID YOU LAST DRINK? ____ . NAME OF PERSON DRIVING YOU HOME? ____ . DO YOU HAVE ANY OTHER QUESTIONS OR CONCERNS NO . VITAL SIGNS WT 146.0 LBS, HT 5'5", BMI 24.29 INDEX, BP 155/86 MM HG, HR 83 /MIN, RR 16 /MIN, TEMP 97.5 F, OXYGEN SAT % 99%, SAFE IN ENV? (Y/N) Y, NA INITIALS TL 1504, REVIEWED BY: LARISSA. EXAMINATION GENERAL EXAMINATION: LUNGS:LUNG SOUNDS ARE CLEAR. HEART:HEART RATE REGULAR. MUSCULOSKELETAL:*, MUSCLE STRENGTH TESTING 5/5 BILATERAL LOWER EXTREMITIES., PALPATION: NEGATIVE FOR PAIN OVER L/S SPINE. NEGATIVE FOR PAIN OVER L/S PARASPINALS.NO TENDERNESS NOTED OVER RIGHT SIJ.. DIAGNOSTIC:MRI L/S [id number]-REVIEWED . ASSESSMENTS SACROILIAC JOINT PAIN - M53.3 (PRIMARY) POST LAMINECTOMY SYNDROME - M96.1 TREATMENT SACROILIAC JOINT PAIN REFILL TRAMADOL HCL TABLET, 50 MG, 2, ORALLY, Q8H PRN MDD6, 30 DAY(S), 180, REFILLS 1 [facility] RE[facility]ON:LOW BACK PAIN/CONSIDER SURGICAL OPTIONS PROCEDURE CODES FA211 ESTABILISHED PATIENT [facility] CHARGE DISPOSITION & COMMUNICATION FOLLOW UP 2 MONTHS ELECTRONICALLY SIGNED BY ALVIN NIELSON ON 08/31/2016 AT 04:17 PM EDT DISCLAIMER : THIS IS A VISIT SUMMARY EXTRACTED FROM THE [employer] CHART. IT IS NOT A COPY OF THE [employer] PROGRESS NOTE. THAI
== END ==
LOC: M PAIN 14:40
PROVIDERS: ATTEND Nurse Practitioner Family
DX: G89.29 Other chronic pain (principal); M53.3 Sacrococcygeal disorders, not elsewhere classified; M96.1 Postlaminectomy syndrome, not elsewhere classified; K21.9 Gastro-esophageal reflux disease without esophagitis; Z87.442 Personal history of urinary calculi; Z79.891 Long term (current) use of opiate analgesic; Z79.899 Other long term (current) drug therapy; Z88.1 Allergy status to other antibiotic agents

== ENCOUNTER → 2017-02-03 | Outpatient (CLI) | payer OTHER ==
--- NOTE | 2017-02-03 23:33 | ECWPNPC ---
PATIENT NAME: MARTÍN GILLIS : 1990 GENDER: FEMALE VISIT DATE: 02/03/2017 DISCHARGE DATE: 02/03/17 1111 VISIT LOCKED DATE TIME: PHYSICIAN: AURELIO PICHARDO RESOURCE: AURELIO PICHARDO REASON FOR APPOINTMENT 1. LOW BACK HISTORY OF PRESENT ILLNESS HISTORY OF PRESENT ILLNESS: HERE FOR F/U AND MANAGEMENT OF CHRONIC LOW BACK PAIN.LAST VISIT WAS SEVERAL MONTHS AGO.SHE HAS BEEN FOLLOWING WITH [facility] IN [place].THEY DID NOT THINK SHE WAS A SURGICAL CANDIDATE OR DCS CANDIDATE.THEY DID DIAGNOSTIC FACET BLOCKS THAT DID NOT DECREASE HER PAIN EVEN FOR AN HOUR POST PROCEDURE.SHE HAS TRIALED MULTIPLE PROCEDURE WITH US OVER THE PAST YEAR THAT WERE INEFFECTIVE.REPORTS FATIGUE WITH MOST PAIN MEDICATIONS EXCEPT TRAMADOL.RATING PAIN VAS 8/10. PAIN THE PATIENT DESCRIBES THE PAIN... FALL RISK SCREENING: SCREENING :NO FALLS IN THE PAST YEAR CURRENT MEDICATIONS TAKING ZZZQUIL 50 MG/30ML LIQUID ORALLY BEFORE BEDTIME TAKING PREVIFEM 0.25-35 MG-MCG TABLET 1 TABLET ORALLY ONCE A DAY TAKING IMITREX 100 MG TABLET 1 TABLET NEEDED ORALLY TWICE A DAY TAKING TRAMADOL HCL 50 MG TABLET 2 ORALLY Q8H PRN MDD6 TAKING MELOXICAM 7.5 MG TABLET 1 CAP ORALLY DAILY NOT-TAKING IBUPROFEN 200 MG TABLET 3 TABLETS ORALLY EVERY 6 HRS PRN NOT-TAKING LIDOCAINE HCL JELLY LONGTERM 2 % JELLY 1 APPLICATION TO AFFECTED AREA NEEDED INTRAVESICALLY PRIOR TO PROCEDURE NOT-TAKING PERCOCET 5-325 MG TABLET 1 TABLET NEEDED ORALLY Q8H PRN MDD3 NOT-TAKING CIPRO 500 MG TABLET 1 TABLET ORALLY DIRECTED NOT-TAKING SOMA 350 MG TABLET 1 TABLET NEEDED ORALLY BEFORE BEDTIME PRN MDD1 NOT-TAKING ORSYTHIA 0.1-20 MG-MCG TABLET ORALLY NOT-TAKING ROBAXIN 500 MG TABLET 1 ORALLY Q8H PRN MDD3 MEDICATION LIST REVIEWED AND RECONCILED WITH THE PATIENT PAST MEDICAL HISTORY KIDNEY STONES GERD HYPERTENSION WHILE PREG. ABNORMAL EKG'S --SEES [facility] ALLERGIES BACTRIM: PERSONALITY CHANGE: ALLERGY CEFZIL: HIVES: ALLERGY SURGICAL HISTORY TYMPANOSTOMY TUBE INSERTION 1993 ARTHROSCOPIC ANKLE SURGERY RIGHT 2007 UPPER ENDOSCOPY 2012 CHOLECYSTECTOMY 2012 APPENDECTOMY 2012 LUMBAR LAMINECTOMY 02/21/15 SOCIAL HISTORY GENERAL: TOBACCO USE ARE YOU A:CURRENT SMOKER ARE YOU INTERESTED IN QUITTING?NOT READY TO QUIT COUNSELED THE PATIENT ON SMOKING EFFECTS, EDUCATION [id number]/2017 HOW MANY CIGARETTES A DAY DO YOU SMOKE?11-20 HOW SOON AFTER YOU WAKE UP DO YOU SMOKE YOUR FIRST CIGARETTE?6-30 MIN PATIENT COUNSELED ON THE DANGERS OF TOBACCO USE AND URGED TO QUIT:02/03/2017 ALCOHOL SCREENING DID YOU HAVE A DRINK CONTAINING ALCOHOL IN THE PAST YEAR?NO POINTS0 INTERPRETATIONNEGATIVE RECREATIONAL DRUG USE DENIES. CAFFEINE 2-5/DAY. SEXUAL HX HAD SEX IN THE LAST 12 MONTHS (VAGINAL, ORAL, OR ANAL)?NO HAVE YOU EVER HAD AN STD?NO OCCUPATION: UNEMPLOYED. DIET: REGULAR. EXERCISE: WALKS. MARITAL STATUS: SINGLE. OTHERS AT HOME: MOTHER, OTHER NON-RELATIVE, CHILD. PETS: 1DOG,1 CAT,. MORAVIAN NO QUAKER BELIEFS THAT WOULD IMPACT HEALTH CARE. LANGUAGE KYRGYZ. EDUCATION SOME COLLEGE PLAN OF CARE FOR PAIN CENTER REVIEWED WITH PAT. AND SHE VERBALIZED UNDERSTANDING.. LEARNING BARRIERS / SPECIAL NEEDS BARRIERS TO LEARNING?NO HEARING IMPAIRED?NO VISION IMPAIRED?YES COGNITIVELY IMPAIRED?NO :CORRECTIVE LENSES READINESS TO LEARN?YES LEARNING PREFERENCES?YES :DEMONSTRATION/VERBAL INSTRUCTION LEARNING CAPABILITIES PRESENT?NO EMOTIONAL BARRIERS?NO PAIN CLINIC PFS, CLERGY, PUBLIC HEALTH REFERRALS PFS REFERRAL NEEDED?NO CLERGY REFERRAL NEEDED?NO PUBLIC HEALTH REFERRAL NEEDED?NO HAS THE PATIENT BEEN EDUCATED REGARDING HIS/HER PLAN OF CARE?YES HAS THE PATIENT BEEN EDUCATED REGARDING PAIN, THE RISK FOR PAIN, THE IMPORTANCE OF EFFECTIVE PAIN MANAGEMENT, AND THE PAIN ASSESSMENT PROCESS?YES ADVANCE DIRECTIVES HEALTH CARE PROXY?NO DECLINES INFORMATION AT THIS TIME POWER OF GROUND SURVEILLANCE SYSTEMS OPERATOR?NO TRAVEL OUTSIDE US: DENIES. DOMESTIC VIOLENCE NONE. HOSPITALIZATION/MAJOR DIAGNOSTIC PROCEDURE SURGERY RELATED REVIEW OF SYSTEMS REVIEWED BY: PROVIDER: AURELIO ESQUIVEL . CONSTITUTIONAL: ANY CHANGE IN YOUR MEDICAL CONDITION? NO . CHILLS NO . FEVER NO . INFECTION: DO YOU HAVE NEW INFECTIONS? NO . DO YOU HAVE HISTORY OF MRSA? NO . MUSCULOSKELETAL: ANY NEW PATTERNS OF PAIN OR NUMBNESS? NO . GASTROENTEROLOGY: ANY NEW CHANGE IN BOWEL CONTROL? NO . GENITOURINARY: ANY NEW CHANGE IN BLADDER CONTROL? NO . IS THERE A CHANCE YOU COULD BE ? NO . HEMATOLOGY/LYMPH: DO YOU TAKE ANY BLOOD THINNERS? (FOR EXAMPLE- COUMADIN, PLAVIX, AGGRENOX, PLATEL, PRADAXA, OR XARELTO) NO . WHEN WAS YOUR LAST DOSE? DATE: TIME: . NEUROLOGY: HAVE YOU FALLEN IN THE PAST 6 MONTHS? NO . ANY NEW EXTREMITY NUMBNESS OR WEAKNESS? NO . CARDIOLOGY: DO YOU HAVE A PACEMAKER OR DEFIBRILLATOR? NO . RESPIRATORY: HAVE YOU BEEN SICK IN THE PAST WEEK? NO . FEVER NO . FLU LIKE SYMPTOMS? NO . COUGH NO . INTEGUMENTARY: DO YOU HAVE ANY RASHES OR OPEN SORES? NO . ALLERGIC/IMMUNO: ARE YOU ALLERGIC TO SHELLFISH OR IV DYE? NO . ANY NEW ALLERGIES? NO . PSYCHIATRIC: DO YOU HAVE THOUGHTS OF HURTING YOURSELF OR SOMEONE ELSE? NO . ARE YOU ABUSED, NEGLECTED, OR IN AN UNSAFE ENVIRONMENT? NO . ENDOCRINOLOGY: ARE YOU DIABETIC? NO . OTHER: DO YOU NEED ANY PRESCRIPTIONS? YES, TRAMADOL . IF YES, PLEASE LIST: ____ . ANY NEW PROBLEMS WITH YOUR MEDICATIONS? NO . WHEN DID YOU LAST EAT? ____ . WHEN DID YOU LAST DRINK? ____ . WHAT DID YOU LAST DRINK? ____ . NAME OF PERSON DRIVING YOU HOME? ____ . DO YOU HAVE ANY OTHER QUESTIONS OR CONCERNS NO . VITAL SIGNS WT 146 LBS, HT 5'5", BMI 24.29 INDEX, BP 139/65 MM HG, HR 90 /MIN, RR 16 /MIN, TEMP 97.2 F, OXYGEN SAT % 100%, NA INITIALS SC 10:13, REVIEWED BY: LARISSA. EXAMINATION GENERAL EXAMINATION: LUNGS:LUNG SOUNDS ARE CLEAR. HEART:HEART RATE REGULAR. MUSCULOSKELETAL:*, MUSCLE STRENGTH TESTING 5/5 BILATERAL LOWER EXTREMITIES., PALPATION: NEGATIVE FOR PAIN OVER L/S SPINE. NEGATIVE FOR PAIN OVER L/S PARASPINALS.NO TENDERNESS NOTED OVER RIGHT SIJ.. DIAGNOSTIC:MRI L/S [id number]-[id number]-REVIEWED . ASSESSMENTS SACROILIAC JOINT PAIN - M53.3 (PRIMARY) POST LAMINECTOMY SYNDROME - M96.1 TREATMENT SACROILIAC JOINT PAIN START TRAMADOL HCL TABLET, 50 MG, 1-2 TAB, ORALLY, EVERY 6 HRS PRN MDD 4 #90 TAB SHOULD LAST #30 DAYS, 30 DAY(S), 90, REFILLS 1 NOTES: ISTOP REGISTRY REVIEWED [id number] DEMNOSTRATES COMPLLIANCE. PROCEDURE CODES FA211 ESTABILISHED PATIENT [facility] CHARGE DISPOSITION & COMMUNICATION FOLLOW UP 4 WEEKS ELECTRONICALLY SIGNED BY ALVIN NIELSON ON 02/03/2017 AT 11:12 AM EST DISCLAIMER : THIS IS A VISIT SUMMARY EXTRACTED FROM THE [employer] CHART. IT IS NOT A COPY OF THE [employer] PROGRESS NOTE. THAI
== END ==
LOC: M PAIN 10:00
PROVIDERS: ATTEND Nurse Practitioner Family
DX: M96.1 Postlaminectomy syndrome, not elsewhere classified (principal); M53.3 Sacrococcygeal disorders, not elsewhere classified; F17.210 Nicotine dependence, cigarettes, uncomplicated; Z88.1 Allergy status to other antibiotic agents; Z88.8 Allergy status to other drugs, medicaments and biological substances; Z79.891 Long term (current) use of opiate analgesic; Z79.899 Other long term (current) drug therapy

== ENCOUNTER → 2017-03-03 | Outpatient (CLI) | payer OTHER | LOC: M PAIN 10:30 | DX: M96.1 Postlaminectomy syndrome, not elsewhere classified (principal); M53.3 Sacrococcygeal disorders, not elsewhere classified; G89.29 Other chronic pain; I10 Essential (primary) hypertension; F17.210 Nicotine dependence, cigarettes, uncomplicated; Z88.1 Allergy status to other antibiotic agents; Z88.8 Allergy status to other drugs, medicaments and biological substances; Z79.1 Long term (current) use of non-steroidal anti-inflammatories (NSAID); Z79.891 Long term (current) use of opiate analgesic; Z79.899 Other long term (current) drug therapy | CPT/HCPCS: G0463 ==

== ENCOUNTER → 2017-03-31 | Outpatient (CLI) | payer OTHER | LOC: M PAIN 13:30 | DX: M53.3 Sacrococcygeal disorders, not elsewhere classified (principal); M96.1 Postlaminectomy syndrome, not elsewhere classified; F17.210 Nicotine dependence, cigarettes, uncomplicated; Z79.891 Long term (current) use of opiate analgesic; Z79.899 Other long term (current) drug therapy; Z88.1 Allergy status to other antibiotic agents; Z88.8 Allergy status to other drugs, medicaments and biological substances | CPT/HCPCS: G0463 ==

== ENCOUNTER → 2017-04-29 | Outpatient (CLI) | payer OTHER | LOC: M PAIN 13:00 | DX: M53.3 Sacrococcygeal disorders, not elsewhere classified (principal); M96.1 Postlaminectomy syndrome, not elsewhere classified; F17.210 Nicotine dependence, cigarettes, uncomplicated; Z79.891 Long term (current) use of opiate analgesic; Z79.899 Other long term (current) drug therapy; Z88.8 Allergy status to other drugs, medicaments and biological substances | CPT/HCPCS: G0463 ==

== ENCOUNTER → 2017-07-20 | Outpatient (CLI) | payer OTHER | LOC: M PAIN 11:30 | DX: G89.29 Other chronic pain (principal); M53.3 Sacrococcygeal disorders, not elsewhere classified; M96.1 Postlaminectomy syndrome, not elsewhere classified; K21.9 Gastro-esophageal reflux disease without esophagitis; F17.210 Nicotine dependence, cigarettes, uncomplicated; Z79.891 Long term (current) use of opiate analgesic; Z79.899 Other long term (current) drug therapy; Z87.442 Personal history of urinary calculi; Z88.1 Allergy status to other antibiotic agents; Z88.2 Allergy status to sulfonamides | CPT/HCPCS: G0463 ==

== ENCOUNTER → 2017-10-23 | Outpatient (CLI) | payer OTHER | LOC: M RAD 11:35 | DX: M22.2X1 Patellofemoral disorders, right knee (principal) | CPT/HCPCS: 73721 ==

== ENCOUNTER → 2017-12-24 | Outpatient (CLI) | payer OTHER | LOC: M PAIN 14:15 | DX: M96.1 Postlaminectomy syndrome, not elsewhere classified (principal); M53.3 Sacrococcygeal disorders, not elsewhere classified; K21.9 Gastro-esophageal reflux disease without esophagitis; F17.210 Nicotine dependence, cigarettes, uncomplicated; Z79.891 Long term (current) use of opiate analgesic; Z79.899 Other long term (current) drug therapy; Z88.1 Allergy status to other antibiotic agents; Z88.8 Allergy status to other drugs, medicaments and biological substances | CPT/HCPCS: G0463 ==

== ENCOUNTER → 2017-12-28 | Outpatient (CLI) | payer OTHER | LOC: M RAD 09:09 | DX: R10.11 Right upper quadrant pain (principal); Q61.5 Medullary cystic kidney; Z90.49 Acquired absence of other specified parts of digestive tract | CPT/HCPCS: 76705 ==

== ENCOUNTER → 2018-04-27 | Outpatient (CLI) | payer OTHER ==
--- NOTE | 2018-05-12 00:56 | ECWPNPC ---
PATIENT NAME: MARTÍN GILLIS : 1990 GENDER: FEMALE VISIT DATE: 04/27/2018 DISCHARGE DATE: 04/27/18 1210 VISIT LOCKED DATE TIME: PHYSICIAN: AURELIO PICHARDO RESOURCE: AURELIO PICHARDO REASON FOR APPOINTMENT 1. BACK PAIN HISTORY OF PRESENT ILLNESS HISTORY OF PRESENT ILLNESS: HERE FOR F/U AND MEDICINE MANAGEMENT OF CHRONIC LOW BACK PAIN.RATING PAIN VAS 6/10.WILL BE HAVING SURGERY ON RIGHT KNEE IN A FEW WEEKS.HAD TO STOP GABAPENTIN 100MG BID SEVERAL MONTHS AGO IT CAUSED MENTAL CHANGES.OVERALL FEELS TRAMADOL IS HELPING.WORKING WITH [facility] FOR ANXIETY WITH DIFFERENT MEDICATIONS. PAIN THE PATIENT DESCRIBES THE PAIN... THE PATIENT DESCRIBES THE PAIN... FALL RISK SCREENING: SCREENING : NO FALLS IN THE PAST YEAR. CURRENT MEDICATIONS TAKING IBUPROFEN 200 MG TABLET 3 TABLETS ORALLY EVERY 6 HRS PRN TAKING TOPAMAX 25 MG TABLET 1 TABLET ORALLY TWICE A DAY TAKING TRAMADOL HCL 50 MG TABLET 1-2 TAB ORALLY 1-2 TAB Q6H PRN MDD4 #120 FOR 30 DAY SUPPLY TAKING ALPRAZOLAM 0.25 MG TABLET 1 TABLET ORALLY TID PRN TAKING QUETIAPINE FUMARATE 50 MG TABLET 1 TABLET ORALLY BEFORE BEDTIME NOT-TAKING ZZZQUIL 50 MG/30ML LIQUID ORALLY BEFORE BEDTIME NOT-TAKING MULTI FOR HER - TABLET ORALLY NOT-TAKING LEXAPRO 10 MG TABLET 1 TABLET ORALLY ONCE A DAY NOT-TAKING ADVIL PM 200-38 MG TABLET 2 TABLETS AT BEDTIME NEEDED ORALLY ONCE A DAY NOT-TAKING CYMBALTA 60 MG CAPSULE DELAYED RELEASE PARTICLES 1 CAPSULE ORALLY ONCE A DAY NOT-TAKING GABAPENTIN 100 MG CAPSULE 1 CAPSULE ORALLY BID NOT-TAKING PREVIFEM 0.25-35 MG-MCG TABLET 1 TABLET ORALLY ONCE A DAY NOT-TAKING RIBOFLAVIN 25 MG TABLET 1 TABLET WITH A MEAL ORALLY ONCE A DAY NOT-TAKING IMITREX 100 MG TABLET 1 TABLET NEEDED ORALLY TWICE A DAY NOT-TAKING LIDOCAINE HCL JELLY ALF 2 % JELLY 1 APPLICATION TO AFFECTED AREA NEEDED INTRAVESICALLY PRIOR TO PROCEDURE NOT-TAKING PERCOCET 5-325 MG TABLET 1 TABLET NEEDED ORALLY Q8H PRN MDD3 NOT-TAKING CIPRO 500 MG TABLET 1 TABLET ORALLY DIRECTED NOT-TAKING SOMA 350 MG TABLET 1 TABLET NEEDED ORALLY BEFORE BEDTIME PRN MDD1 NOT-TAKING ORSYTHIA 0.1-20 MG-MCG TABLET ORALLY NOT-TAKING ROBAXIN 500 MG TABLET 1 ORALLY Q8H PRN MDD3 NOT-TAKING MELOXICAM 7.5 MG TABLET 1 CAP ORALLY DAILY MEDICATION LIST REVIEWED AND RECONCILED WITH THE PATIENT PAST MEDICAL HISTORY KIDNEY STONES GERD HYPERTENSION WHILE PREG. ABNORMAL EKG'S --SEES [facility] ALLERGIES BACTRIM: PERSONALITY CHANGE: ALLERGY CEFZIL: HIVES: ALLERGY SURGICAL HISTORY TYMPANOSTOMY TUBE INSERTION 1992 ARTHROSCOPIC ANKLE SURGERY RIGHT 2007 UPPER ENDOSCOPY 2012 CHOLECYSTECTOMY 2013 APPENDECTOMY 2012 LUMBAR LAMINECTOMY 02/21/15 RIGHT KNEE SURGERY 12/2017 FAMILY HISTORY FATHER: 44 YRS, DIAGNOSED WITH HYPERTENSION, HEART DISEASE MOTHER: ALIVE, DIAGNOSED WITH OTHER SIBLINGS: ALIVE 1 BROTHER(S) - HEALTHY. 1 SON(S) - HEALTHY. MOM--SKIN CANCER AND BACK PROBLEMS. HOSPITALIZATION/MAJOR DIAGNOSTIC PROCEDURE SURGERY RELATED REVIEW OF SYSTEMS REVIEWED BY: PROVIDER: AURELIO ESQUIVEL . CONSTITUTIONAL: ANY CHANGE IN YOUR MEDICAL CONDITION? NO . CHILLS NO . FEVER NO . INFECTION: DO YOU HAVE NEW INFECTIONS? NO . DO YOU HAVE HISTORY OF MRSA? NO . MUSCULOSKELETAL: ANY NEW PATTERNS OF PAIN OR NUMBNESS? NO . GASTROENTEROLOGY: ANY NEW CHANGE IN BOWEL CONTROL? NO . GENITOURINARY: ANY NEW CHANGE IN BLADDER CONTROL? NO . IS THERE A CHANCE YOU COULD BE ? NO . HEMATOLOGY/LYMPH: DO YOU TAKE ANY BLOOD THINNERS? (FOR EXAMPLE- COUMADIN, PLAVIX, AGGRENOX, PLATEL, PRADAXA, OR XARELTO) NO . WHEN WAS YOUR LAST DOSE? DATE: TIME: . NEUROLOGY: HAVE YOU FALLEN IN THE PAST 12 MONTHS? NO . ANY NEW EXTREMITY NUMBNESS OR WEAKNESS? NO . CARDIOLOGY: DO YOU HAVE A PACEMAKER OR DEFIBRILLATOR? NO . RESPIRATORY: HAVE YOU BEEN SICK IN THE PAST WEEK? NO . FEVER NO . FLU LIKE SYMPTOMS? NO . COUGH NO . INTEGUMENTARY: DO YOU HAVE ANY RASHES OR OPEN SORES? NO . ALLERGIC/IMMUNO: ARE YOU ALLERGIC TO IV DYE? NO . ANY NEW ALLERGIES? NO . PSYCHIATRIC: DO YOU HAVE THOUGHTS OF HURTING YOURSELF OR SOMEONE ELSE? NO . ARE YOU ABUSED, NEGLECTED, OR IN AN UNSAFE ENVIRONMENT? NO . ENDOCRINOLOGY: ARE YOU DIABETIC? NO . OTHER: DO YOU NEED ANY PRESCRIPTIONS? NO . IF YES, PLEASE LIST: ____ . ANY NEW PROBLEMS WITH YOUR MEDICATIONS? NO . WHEN DID YOU LAST EAT? ____ . WHEN DID YOU LAST DRINK? ____ . WHAT DID YOU LAST DRINK? ____ . NAME OF PERSON DRIVING YOU HOME? ____ . DO YOU HAVE ANY OTHER QUESTIONS OR CONCERNS NO . VITAL SIGNS WT 167 LBS, HT 5'5", BMI 27.79 INDEX, BP 113/75 MM HG, HR 90 /MIN, RR 16 /MIN, TEMP 97.0 F, OXYGEN SAT % 98%, NA INITIALS SC 11:25, REVIEWED BY: EM. EXAMINATION GENERAL EXAMINATION: LUNGS:LUNG SOUNDS ARE CLEAR. HEART:HEART RATE REGULAR. DIAGNOSTIC: . ASSESSMENTS POST LAMINECTOMY SYNDROME - M96.1 (PRIMARY) TREATMENT POST LAMINECTOMY SYNDROME REFILL TRAMADOL HCL TABLET, 50 MG, 1-2 TAB, ORALLY, 1-2 TAB Q6H PRN MDD4 #120 FOR 30 DAY SUPPLY, 30 DAY(S), 120, REFILLS 2 NOTES: ISTOP REGISTRY REVIEWED AND DEMONSTRATES COMPLLIANCE. BRINGS IN MEDICATIONS WHICH IS APPROPRIATE FOR WHAT WAS DISPENSED. RECENT URINE TOXICOLOGY REVIEWED. NO UNAUTHORIZED MEDICATIONS. NO ILLICIT SUBSTANCES AND PRESCRIBED MEDICATIONS WERE PRESENT. URINE TOX TODAY, RISKS AND BENEFITS OF NARCOTIC/OPIOD MEDICATIONS WERE REVIEWED WITH PATIENT - THIS INCLUDES BUT IS NOT LIMITED TO RISK OF DEPENDANCE/DEVELOPMENT OF ADDICTION, MOOD DISTURBANCE AND DEPRESSION, OSTEOPOROSIS, HORMONAL AND LABIDAL CHANGES, RESPIRATORY DEPRESSION AND . PATIENT IS ADVISED NOT TO DRIVE OR DRINK ALCOHOL WHILE ON THESE MEDICATIONS, [facility] NARCOTIC AGREEMENT WAS UPDATED REVIEWED AND SIGNED TODAY BY THE PATIENT. SEE ATTACHED DOCUMENT FOR FULL DETAILS; SPECIFIC ISSUES WERE REVIEWED: 1) KEEP PAIN MEDS IN THEIR ORIGINAL BOTTLES AND ANY WEEKLY PLANNERS ARE TO BE BROUGHT TO THE PAIN CENTER AT EVERY VISIT. 2) THE PATIENT IS NOT TO INCREASE DOSING OR TIMING OF THEIR PAIN MEDICATION WITHOUT SPECIFIC DIRECTION OF THEIR PAIN CENTERPROVIDER (NOT ER OR OTHER PROVIDERS). 3) ALL PAIN MEDS ARE TO BE KEPT SECURED, IN A LOCKED BOX. 4) NO PAIN MEDS ARE TO BE SHARED WITH ANY OTHER PERSON FOR ANY REASON. 5) NO PAIN MEDS MAY BE TAKEN FROM ANY FRIENDS OR RELATIVES FOR ANY REASON 6) NO MEDS OR SUBSTANCES WHICH ARE NOT LEGAL ARE TO BE USED- NO MARIJUANA, NO COCAINE, AMPHETAMINES, HEROIN, OR OTHERS ARE EVER TO BE USED. 7)URINE TESTING IS DONE TO ACCOUNT FOR MEDS AND SUBSTANCES BEING TAKEN AND WILL BE DONE RANDOMLY. PROCEDURE CODES FA211 ESTABILISHED PATIENT [facility] CHARGE DISPOSITION & COMMUNICATION FOLLOW UP 3 MONTHS ELECTRONICALLY SIGNED BY ALVIN RIVERS ON 05/11/2018 AT 10:14 AM EST DISCLAIMER : THIS IS A VISIT SUMMARY EXTRACTED FROM THE [employer] CHART. IT IS NOT A COPY OF THE [employer] PROGRESS NOTE. THAI
== END ==
LOC: M PAIN 11:15
PROVIDERS: ATTEND Nurse Practitioner Family
DX: M96.1 Postlaminectomy syndrome, not elsewhere classified (principal); Z88.1 Allergy status to other antibiotic agents; Z79.899 Other long term (current) drug therapy

== ENCOUNTER → 2018-07-22 | Outpatient (CLI) | payer OTHER ==
--- NOTE | 2018-08-10 02:08 | ECWPNPC ---
PATIENT NAME: MARTÍN GILLIS : 1990 GENDER: FEMALE VISIT DATE: 07/22/2018 DISCHARGE DATE: 07/22/18 1425 VISIT LOCKED DATE TIME: PHYSICIAN: AURELIO PICHARDO RESOURCE: AURELIO PICHARDO REASON FOR APPOINTMENT 1. BACK PAIN HISTORY OF PRESENT ILLNESS HISTORY OF PRESENT ILLNESS: HERE FOR F/U OF CHRONIC LOW BACK PAIN.RATING PAIN VAS 7/10.TRAMADOL IS HELPFUL.DISCUSSED MEDICATION OPTIONS. PAIN THE PATIENT DESCRIBES THE PAIN... FALL RISK SCREENING: SCREENING :NO FALLS REPORTED IN THE LAST YEAR CURRENT MEDICATIONS TAKING IBUPROFEN 200 MG TABLET 3 TABLETS ORALLY EVERY 6 HRS PRN TAKING TOPAMAX 25 MG TABLET 1 TABLET ORALLY TWICE A DAY TAKING ALPRAZOLAM 0.25 MG TABLET 1 TABLET ORALLY TID PRN TAKING QUETIAPINE FUMARATE 50 MG TABLET 1 TABLET ORALLY BEFORE BEDTIME TAKING TRAMADOL HCL 50 MG TABLET 1-2 TAB ORALLY 1-2 TAB Q6H PRN MDD4 #120 FOR 30 DAY SUPPLY TAKING SPIRONOLACTONE 25 MG TABLET 1 TABLET ORALLY DAILY, NOTES: NOT SURE OF DOSE NOT-TAKING ZZZQUIL 50 MG/30ML LIQUID ORALLY BEFORE BEDTIME NOT-TAKING MULTI FOR HER - TABLET ORALLY NOT-TAKING LEXAPRO 10 MG TABLET 1 TABLET ORALLY ONCE A DAY NOT-TAKING ADVIL PM 200-38 MG TABLET 2 TABLETS AT BEDTIME NEEDED ORALLY ONCE A DAY NOT-TAKING CYMBALTA 60 MG CAPSULE DELAYED RELEASE PARTICLES 1 CAPSULE ORALLY ONCE A DAY NOT-TAKING GABAPENTIN 100 MG CAPSULE 1 CAPSULE ORALLY BID NOT-TAKING PREVIFEM 0.25-35 MG-MCG TABLET 1 TABLET ORALLY ONCE A DAY NOT-TAKING RIBOFLAVIN 25 MG TABLET 1 TABLET WITH A MEAL ORALLY ONCE A DAY NOT-TAKING IMITREX 100 MG TABLET 1 TABLET NEEDED ORALLY TWICE A DAY NOT-TAKING LIDOCAINE HCL JELLY RESIDENTIAL 2 % JELLY 1 APPLICATION TO AFFECTED AREA NEEDED INTRAVESICALLY PRIOR TO PROCEDURE NOT-TAKING PERCOCET 5-325 MG TABLET 1 TABLET NEEDED ORALLY Q8H PRN MDD3 NOT-TAKING CIPRO 500 MG TABLET 1 TABLET ORALLY DIRECTED NOT-TAKING SOMA 350 MG TABLET 1 TABLET NEEDED ORALLY BEFORE BEDTIME PRN MDD1 NOT-TAKING ORSYTHIA 0.1-20 MG-MCG TABLET ORALLY NOT-TAKING ROBAXIN 500 MG TABLET 1 ORALLY Q8H PRN MDD3 NOT-TAKING MELOXICAM 7.5 MG TABLET 1 CAP ORALLY DAILY MEDICATION LIST REVIEWED AND RECONCILED WITH THE PATIENT PAST MEDICAL HISTORY KIDNEY STONES GERD HYPERTENSION WHILE PREG. ABNORMAL EKG'S --SEES [facility] MEDULARY SPONGE KIDNEY ALLERGIES BACTRIM: PERSONALITY CHANGE - ALLERGY CEFZIL: HIVES - ALLERGY SURGICAL HISTORY TYMPANOSTOMY TUBE INSERTION 1992 ARTHROSCOPIC ANKLE SURGERY RIGHT 2007 UPPER ENDOSCOPY 2011 CHOLECYSTECTOMY 2012 APPENDECTOMY 2012 LUMBAR LAMINECTOMY 02/21/15 RIGHT KNEE SURGERY 12/2017 FAMILY HISTORY FATHER: 44 YRS, DIAGNOSED WITH HYPERTENSION, HEART DISEASE MOTHER: ALIVE, OTHER SIBLINGS: ALIVE 1 BROTHER(S) - HEALTHY. 1 SON(S) - HEALTHY. MOM--SKIN CANCER AND BACK PROBLEMS. SOCIAL HISTORY GENERAL: TOBACCO USE ARE YOU A:CURRENT SMOKER ARE YOU INTERESTED IN QUITTING?NOT READY TO QUIT COUNSELED THE PATIENT ON SMOKING EFFECTS, EDUCATION [id number]/17/2019 HOW MANY CIGARETTES A DAY DO YOU SMOKE?11-20 HOW SOON AFTER YOU WAKE UP DO YOU SMOKE YOUR FIRST CIGARETTE?6-30 MIN PATIENT COUNSELED ON THE DANGERS OF TOBACCO USE AND URGED TO QUIT:12/24/2017 SMOKING CESSATION INFORMATION GIVEN12/24/2017 OTHERS AT HOME: MOTHER, OTHER NON-RELATIVE, CHILD. EDUCATION SOME COLLEGE PLAN OF CARE FOR PAIN CENTER REVIEWED WITH PAT. AND SHE VERBALIZED UNDERSTANDING.. DIET: REGULAR. LANGUAGE LUXEMBOURGER. DOMESTIC VIOLENCE NONE. RECREATIONAL DRUG USE DENIES. EXERCISE: WALKS. LEARNING BARRIERS / SPECIAL NEEDS BARRIERS TO LEARNING?NO HEARING IMPAIRED?NO VISION IMPAIRED?YES :CORRECTIVE LENSES COGNITIVELY IMPAIRED?NO READINESS TO LEARN?YES LEARNING PREFERENCES?YES :DEMONSTRATION/VERBAL INSTRUCTION LEARNING CAPABILITIES PRESENT?NO EMOTIONAL BARRIERS?NO PAIN CLINIC PFS, CLERGY, PUBLIC HEALTH REFERRALS PFS REFERRAL NEEDED?NO CLERGY REFERRAL NEEDED?NO PUBLIC HEALTH REFERRAL NEEDED?NO WAS THE PROVIDER NOTIFIED OF ANY PERTINENT INFO?YES HAS THE PATIENT BEEN EDUCATED REGARDING HIS/HER PLAN OF CARE?YES HAS THE PATIENT BEEN EDUCATED REGARDING PAIN, THE RISK FOR PAIN, THE IMPORTANCE OF EFFECTIVE PAIN MANAGEMENT, AND THE PAIN ASSESSMENT PROCESS?YES CAFFEINE 2-5/DAY. ADVANCE DIRECTIVE ADVANCE DIRECTIVE DISCUSSED WITH PATIENT:YES NO ADVANCED DIRECTIVES, DECLINED INFORMATION AT THIS TIME WORSHIP NO SABIANISM BELIEFS THAT WOULD IMPACT HEALTH CARE. MARITAL STATUS: SINGLE. ALCOHOL SCREENING DID YOU HAVE A DRINK CONTAINING ALCOHOL IN THE PAST YEAR?NO POINTS0 INTERPRETATIONNEGATIVE OCCUPATION: UNEMPLOYED. SEXUAL HX HAD SEX IN THE LAST 12 MONTHS (VAGINAL, ORAL, OR ANAL)?NO HAVE YOU EVER HAD AN STD?NO HOSPITALIZATION/MAJOR DIAGNOSTIC PROCEDURE SURGERY RELATED REVIEW OF SYSTEMS REVIEWED BY: PROVIDER: AURELIO ESQUIVEL . CONSTITUTIONAL: ANY CHANGE IN YOUR MEDICAL CONDITION? NO . CHILLS NO . FEVER NO . INFECTION: DO YOU HAVE NEW INFECTIONS? NO . DO YOU HAVE HISTORY OF MRSA? NO . MUSCULOSKELETAL: ANY NEW PATTERNS OF PAIN OR NUMBNESS? NO . GASTROENTEROLOGY: ANY NEW CHANGE IN BOWEL CONTROL? NO . GENITOURINARY: ANY NEW CHANGE IN BLADDER CONTROL? NO . IS THERE A CHANCE YOU COULD BE ? NO . HEMATOLOGY/LYMPH: DO YOU TAKE ANY BLOOD THINNERS? (FOR EXAMPLE- COUMADIN, PLAVIX, AGGRENOX, PLATEL, PRADAXA, OR XARELTO) NO . WHEN WAS YOUR LAST DOSE? DATE: TIME: . NEUROLOGY: HAVE YOU FALLEN IN THE PAST 12 MONTHS? NO . ANY NEW EXTREMITY NUMBNESS OR WEAKNESS? NO . CARDIOLOGY: DO YOU HAVE A PACEMAKER OR DEFIBRILLATOR? NO . RESPIRATORY: HAVE YOU BEEN SICK IN THE PAST WEEK? NO . FEVER NO . FLU LIKE SYMPTOMS? NO . COUGH NO . INTEGUMENTARY: DO YOU HAVE ANY RASHES OR OPEN SORES? NO . ALLERGIC/IMMUNO: ARE YOU ALLERGIC TO IV DYE? NO . ANY NEW ALLERGIES? NO . PSYCHIATRIC: DO YOU HAVE THOUGHTS OF HURTING YOURSELF OR SOMEONE ELSE? NO . ARE YOU ABUSED, NEGLECTED, OR IN AN UNSAFE ENVIRONMENT? NO . ENDOCRINOLOGY: ARE YOU DIABETIC? NO . OTHER: DO YOU NEED ANY PRESCRIPTIONS? NO . IF YES, PLEASE LIST: ____ . ANY NEW PROBLEMS WITH YOUR MEDICATIONS? NO . WHEN DID YOU LAST EAT? ____ . WHEN DID YOU LAST DRINK? ____ . WHAT DID YOU LAST DRINK? ____ . NAME OF PERSON DRIVING YOU HOME? ____ . DO YOU HAVE ANY OTHER QUESTIONS OR CONCERNS NO . VITAL SIGNS WT 169 LBS, HT 5'5", BMI 28.12 INDEX, BP 121/70 MM HG, HR 71 /MIN, RR 16 /MIN, TEMP 98.5 F, OXYGEN SAT % 98, REVIEWED BY: EM. EXAMINATION GENERAL EXAMINATION: GENERAL APPEARANCE:AWAKE,ALERT ,PLEAASANT . PSYCHAFFECT NORMAL . LUNGS:LUNG HDZ ARE CLEAR TO AUSCULTATION BILATERALLY. GOOD MOVEMENT OF AIR . HEART:S1, S2 IN A REGULAR RATE AND RHYTHM. NO SIGNIFICANT MURMURS, RUBS OR GALLOPS NOTED . ASSESSMENTS POST LAMINECTOMY SYNDROME - M96.1 (PRIMARY) TREATMENT POST LAMINECTOMY SYNDROME INCREASE TRAMADOL HCL TABLET, 50 MG, 1-2 TAB, ORALLY, Q8H PRN MDD6, 30 DAY(S), 180, REFILLS 2 NOTES: ISTOP REGISTRY REVIEWED AND DEMONSTRATES COMPLLIANCE. (REF # [id number] ) BRINGS IN MEDICATIONS WHICH IS APPROPRIATE FOR WHAT WAS DISPENSED. RECENT URINE TOXICOLOGY REVIEWED. NO UNAUTHORIZED MEDICATIONS. NO ILLICIT SUBSTANCES AND PRESCRIBED MEDICATIONS WERE PRESENT. , RISKS AND BENEFITS OF NARCOTIC/OPIOD MEDICATIONS WERE REVIEWED WITH PATIENT - THIS INCLUDES BUT IS NOT LIMITED TO RISK OF DEPENDANCE/DEVELOPMENT OF ADDICTION, MOOD DISTURBANCE AND DEPRESSION, OSTEOPOROSIS, HORMONAL AND LABIDAL CHANGES, RESPIRATORY DEPRESSION AND . PATIENT IS ADVISED NOT TO DRIVE OR DRINK ALCOHOL WHILE ON THESE MEDICATIONS. PROCEDURE CODES FA211 ESTABILISHED PATIENT [facility] CHARGE DISPOSITION & COMMUNICATION FOLLOW UP 3 MONTHS (REASON: MED MGMNT) ELECTRONICALLY SIGNED BY ALVIN RIVERS ON 08/09/2018 AT 01:19 PM EDT DISCLAIMER : THIS IS A VISIT SUMMARY EXTRACTED FROM THE [employer] CHART. IT IS NOT A COPY OF THE [employer] PROGRESS NOTE. THAI
== END ==
LOC: M PAIN 13:30
PROVIDERS: ATTEND Nurse Practitioner Family
DX: M96.1 Postlaminectomy syndrome, not elsewhere classified (principal); F17.210 Nicotine dependence, cigarettes, uncomplicated; Z79.899 Other long term (current) drug therapy; Z88.1 Allergy status to other antibiotic agents; Z88.8 Allergy status to other drugs, medicaments and biological substances; Z86.79 Personal history of other diseases of the circulatory system

== ENCOUNTER → 2018-09-09 | Outpatient (REF) | payer OTHER | LOC: M LAB REF 16:17 | PROVIDERS: ATTEND Physician Assistant | DX: J02.9 Acute pharyngitis, unspecified (principal) ==

== ENCOUNTER → 2018-10-21 | Outpatient (CLI) | payer OTHER | LOC: M PAIN 14:15 | PROVIDERS: ATTEND Nurse Practitioner Family | DX: M96.1 Postlaminectomy syndrome, not elsewhere classified (principal); F17.210 Nicotine dependence, cigarettes, uncomplicated; Z88.1 Allergy status to other antibiotic agents; Z79.891 Long term (current) use of opiate analgesic; Z79.899 Other long term (current) drug therapy ==

== ENCOUNTER → 2018-11-01 | Outpatient (CLI) | payer OTHER ==
--- NOTE | 2018-11-01 14:21 | ECGEPIP ---
[facility] Test Date: 2018-11-01 Pat Name: MARTÍN GILLIS Department: Room: - Gender: Female Claims Supervisor: LUCAS : 1990 Requested By: Other CDS - complete info on Order Number: [id number] Reading MD: Laura Sales Measurements Intervals [place] Rate: 66 P: 45 NM: 195 QRS: 128 QRSD: 104 T: 62 QT: 404 QTc: 424 Interpretive Statements SINUS RHYTHM 1SR DEGREEBLOCK LEFT POSTERIOR FASCICULAR BLOCK BIFASICULAR BLOCK NO PRIOR Electronically Signed on 11-01-2018 14:21:01 EDT by Laura Sales
== END ==
LOC: M EKG 13:36
DX: Z79.899 Other long term (current) drug therapy (principal)

== ENCOUNTER → 2018-11-02 | Outpatient (CLI) | payer OTHER ==
[2018-11-02 15:33] LABS: HEMATOCRIT 44.3 % (36.0-47.0); HEMOGLOBIN 14.6 g/dl (12.0-15.5); MEAN CORPUSCULAR HEMOGLOBIN 30.5 pg (27.0-33.0); MEAN CORPUSCULAR VOLUME 92.7 fl (80.0-96.0); PLATELET COUNT, AUTOMATED 310 10^3/uL (150-450); RED BLOOD COUNT 4.78 10^6/uL (4.00-5.40); WHITE BLOOD COUNT 13.4 10^3/uL (4.0-10.0)
[2018-11-02 16:05] LABS: ALBUMIN 4.2 GM/DL (3.2-5.2); ALT/SGPT 15 U/L (12-78); BILIRUBIN,TOTAL 0.6 MG/DL (0.2-1.0); BLOOD UREA NITROGEN 12 MG/DL (7-18); CALCIUM LEVEL 9.7 MG/DL (8.5-10.1); CARBON DIOXIDE LEVEL 26 MEQ/L (21-32); CHLORIDE LEVEL 109 MEQ/L (98-107); CHOLESTEROL LEVEL 170 MG/DL (<200); CHOLESTEROL RISK RATIO 3.863 (<5); CREATININE FOR GFR 0.85 MG/DL (0.55-1.30); FREE T4 1.02 NG/DL (0.76-1.46); GLOMERULAR FILTRATION RATE > 60.0 (>60); GLUCOSE, FASTING 67 MG/DL (70-100); HDL CHOLESTEROL 44 MG/DL (>40); LDL CHOLESTEROL 108 MG/DL (<100); NON-HDL-C 126 MG/DL; POTASSIUM SERUM 4.7 MEQ/L (3.5-5.1); SODIUM LEVEL 139 MEQ/L (136-145); THYROID STIMULATING HORMONE 0.575 uIU/ML (0.358-3.740); TOTAL PROTEIN 7.4 GM/DL (6.4-8.2); TRIGLYCERIDES LEVEL 89 MG/DL (<150)
== END ==
LOC: M LAB 14:47
DX: F43.23 Adjustment disorder with mixed anxiety and depressed mood (principal)

== ENCOUNTER → 2018-12-05 | Outpatient (REF) | payer OTHER | LOC: M LAB REF 17:02 | PROVIDERS: ATTEND Internal Medicine Nephrology | DX: N39.0 Urinary tract infection, site not specified (principal) ==

== ENCOUNTER → 2018-12-09 | Outpatient (CLI) | payer OTHER ==
--- NOTE | 2018-12-09 12:06 | REP ---
REASON: History of renal calculi. COMPARISON: Multiple, the latest 07/26/2013. The lung bases are clear. Limited evaluation of the solid intra-abdominal organs show no gross abnormalities. Limited evaluation of the pancreas and adrenal glands show no gross abnormalities. Patchy type bilateral renal calcifications are seen in the region of the corticomedullary junction with additional well demarcated tiny focal calcifications in each kidney. There are fewer well demarcated focal nonobstructing nephroliths seen today than on the prior exam with only one on the right and two on the left previously more in number bilaterally. The vague type patchy calcifications seen in the region of the corticomedullary junction represent a change from the prior exam. There is no free fluid or free air in the abdomen. Limited evaluation of the abdominal aorta and paraaortic regions shows them to be within normal limits. The bowel loops and their mesenteries are unremarkable. CT PELVIS: There is a T shape radiodensity in the uterus consistent with an IUD. This represents a change from prior exam. There is no free fluid or free air. The bowel loops and their mesenteries are within normal limits. There is no evidence of a pelvic mass or adenopathy. Bone window technique through the examination shows no significant change in the appearance of the osseous structures. IMPRESSION: 1. 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 2. Tiny nonobstructing nephroliths as described above. 3. No evidence of acute intra-abdominal or intrapelvic disease with findings as described above. Electronically Signed by Óscar Peralta DO 12/09/2018 02:03 P
== END ==
LOC: M RAD 08:04
PROVIDERS: ATTEND Internal Medicine Nephrology
DX: N20.0 Calculus of kidney (principal)

== ENCOUNTER → 2019-01-20 | Outpatient (CLI) | payer OTHER ==
--- NOTE | 2019-02-08 05:09 | ECWPNPC ---
PATIENT NAME: MARTÍN GILLIS : 1990 GENDER: FEMALE VISIT DATE: 01/20/2019 DISCHARGE DATE: 01/20/19 1508 VISIT LOCKED DATE TIME: PHYSICIAN: AURELIO PICHARDO RESOURCE: AURELIO PICHARDO REASON FOR APPOINTMENT 1. BACK PAIN HISTORY OF PRESENT ILLNESS HISTORY OF PRESENT ILLNESS: HERE FOR F/U OF CHRONIC LOW BACK PAIN.RATING PAIN VAS 9/10.TRAMADOL IS HELPFUL.DISCUSSED MEDICATION OPTIONS. RECENT INCREASE IN CYMBALTA PER PRIMARY CARE 1 1/2 WEEKS AGO. PAIN THE PATIENT DESCRIBES THE PAIN... FALL RISK SCREENING: SCREENING :NO FALLS REPORTED IN THE LAST YEAR CURRENT MEDICATIONS TAKING IBUPROFEN 200 MG TABLET 3 TABLETS ORALLY EVERY 6 HRS PRN TAKING SPIRONOLACTONE 50 MG TABLET 1 TABLET ORALLY DAILY TAKING TRAMADOL HCL 50 MG TABLET 1-2 TAB ORALLY Q8H PRN MDD6 TAKING ABILIFY 2 MG TABLET 1 TABLET ORALLY ONCE A DAY TAKING TRAZODONE HCL 50 MG TABLET 1 TABLET AT BEDTIME NEEDED ORALLY ONCE A DAY TAKING TOPAMAX 25 MG TABLET 1 TABLET ORALLY TWICE A DAY NOT-TAKING ALPRAZOLAM 0.25 MG TABLET 1 TABLET ORALLY TID PRN NOT-TAKING ZZZQUIL 50 MG/30ML LIQUID ORALLY BEFORE BEDTIME NOT-TAKING MULTI FOR HER - TABLET ORALLY NOT-TAKING LEXAPRO 10 MG TABLET 1 TABLET ORALLY ONCE A DAY NOT-TAKING ADVIL PM 200-38 MG TABLET 2 TABLETS AT BEDTIME NEEDED ORALLY ONCE A DAY NOT-TAKING CYMBALTA 20 MG CAPSULE DELAYED RELEASE PARTICLES 2 CAPSULE ORALLY ONCE A DAY NOT-TAKING GABAPENTIN 100 MG CAPSULE 1 CAPSULE ORALLY BID NOT-TAKING PREVIFEM 0.25-35 MG-MCG TABLET 1 TABLET ORALLY ONCE A DAY NOT-TAKING RIBOFLAVIN 25 MG TABLET 1 TABLET WITH A MEAL ORALLY ONCE A DAY NOT-TAKING IMITREX 100 MG TABLET 1 TABLET NEEDED ORALLY TWICE A DAY NOT-TAKING LIDOCAINE HCL JELLY SHELTER 2 % JELLY 1 APPLICATION TO AFFECTED AREA NEEDED INTRAVESICALLY PRIOR TO PROCEDURE NOT-TAKING PERCOCET 5-325 MG TABLET 1 TABLET NEEDED ORALLY Q8H PRN MDD3 NOT-TAKING CIPRO 500 MG TABLET 1 TABLET ORALLY DIRECTED NOT-TAKING SOMA 350 MG TABLET 1 TABLET NEEDED ORALLY BEFORE BEDTIME PRN MDD1 NOT-TAKING ORSYTHIA 0.1-20 MG-MCG TABLET ORALLY NOT-TAKING ROBAXIN 500 MG TABLET 1 ORALLY Q8H PRN MDD3 NOT-TAKING MELOXICAM 7.5 MG TABLET 1 CAP ORALLY DAILY DISCONTINUED QUETIAPINE FUMARATE 50 MG TABLET 1 TABLET ORALLY BEFORE BEDTIME DISCONTINUED BUSPIRONE HCL 10 MG TABLET 1 TABLET ORALLY TWICE A DAY MEDICATION LIST REVIEWED AND RECONCILED WITH THE PATIENT PAST MEDICAL HISTORY KIDNEY STONES GERD HYPERTENSION WHILE PREG. ABNORMAL EKG'S --SEES [facility] MEDULARY SPONGE KIDNEY ALLERGIES BACTRIM: PERSONALITY CHANGE - ALLERGY CEFZIL: HIVES - ALLERGY SURGICAL HISTORY TYMPANOSTOMY TUBE INSERTION 1992 ARTHROSCOPIC ANKLE SURGERY RIGHT 2007 UPPER ENDOSCOPY 2012 CHOLECYSTECTOMY 2013 APPENDECTOMY 2012 LUMBAR LAMINECTOMY 02/21/15 RIGHT KNEE SURGERY 12/2017 FAMILY HISTORY FATHER: 44 YRS, DIAGNOSED WITH HYPERTENSION, UNSPECIFIED HEART DISEASE MOTHER: ALIVE, OTHER SPECIFIED CONDITIONS INFLUENCING HEALTH STATUS SIBLINGS: ALIVE 1 BROTHER(S) - HEALTHY. 1 SON(S) - HEALTHY. MOM--SKIN CANCER AND BACK PROBLEMS. SOCIAL HISTORY GENERAL: TOBACCO USE ARE YOU A:CURRENT SMOKER ARE YOU INTERESTED IN QUITTING?NOT READY TO QUIT COUNSELED THE PATIENT ON SMOKING EFFECTS, EDUCATION [id number]/15/2019 HOW MANY CIGARETTES A DAY DO YOU SMOKE?11-20 HOW SOON AFTER YOU WAKE UP DO YOU SMOKE YOUR FIRST CIGARETTE?6-30 MIN PATIENT COUNSELED ON THE DANGERS OF TOBACCO USE AND URGED TO QUIT:12/24/2017 SMOKING CESSATION INFORMATION GIVEN10/21/2018 OTHERS AT HOME: MOTHER, OTHER NON-RELATIVE, CHILD. EDUCATION SOME COLLEGE PLAN OF CARE FOR PAIN CENTER REVIEWED WITH PAT. AND SHE VERBALIZED UNDERSTANDING.. DIET: REGULAR. LANGUAGE GREEK. DOMESTIC VIOLENCE NONE. RECREATIONAL DRUG USE DENIES. EXERCISE: WALKS. LEARNING BARRIERS / SPECIAL NEEDS BARRIERS TO LEARNING?NO HEARING IMPAIRED?NO VISION IMPAIRED?YES COGNITIVELY IMPAIRED?NO :CORRECTIVE LENSES READINESS TO LEARN?YES LEARNING PREFERENCES?YES :DEMONSTRATION/VERBAL INSTRUCTION LEARNING CAPABILITIES PRESENT?NO EMOTIONAL BARRIERS?NO PAIN CLINIC PFS, CLERGY, PUBLIC HEALTH REFERRALS PFS REFERRAL NEEDED?NO CLERGY REFERRAL NEEDED?NO PUBLIC HEALTH REFERRAL NEEDED?NO WAS THE PROVIDER NOTIFIED OF ANY PERTINENT INFO?YES HAS THE PATIENT BEEN EDUCATED REGARDING HIS/HER PLAN OF CARE?YES HAS THE PATIENT BEEN EDUCATED REGARDING PAIN, THE RISK FOR PAIN, THE IMPORTANCE OF EFFECTIVE PAIN MANAGEMENT, AND THE PAIN ASSESSMENT PROCESS?YES CAFFEINE 2-5/DAY. ADVANCE DIRECTIVE ADVANCE DIRECTIVE DISCUSSED WITH PATIENT:YES NO ADVANCED DIRECTIVES, DECLINED INFORMATION AT THIS TIME [place] NO DENOMINATIONAL BELIEFS THAT WOULD IMPACT HEALTH CARE. MARITAL STATUS: SINGLE. ALCOHOL SCREENING DID YOU HAVE A DRINK CONTAINING ALCOHOL IN THE PAST YEAR?NO POINTS0 INTERPRETATIONNEGATIVE OCCUPATION: UNEMPLOYED. SEXUAL HX HAD SEX IN THE LAST 12 MONTHS (VAGINAL, ORAL, OR ANAL)?NO HAVE YOU EVER HAD AN STD?NO REVIEWED WITH PATIENT 10/21/18 NLJ. HOSPITALIZATION/MAJOR DIAGNOSTIC PROCEDURE SURGERY RELATED CHILDBIRTH REVIEW OF SYSTEMS REVIEWED BY: PROVIDER: AURELIO ESQUIVEL . CONSTITUTIONAL: ANY CHANGE IN YOUR MEDICAL CONDITION? NO . CHILLS NO . FEVER NO . INFECTION: DO YOU HAVE NEW INFECTIONS? NO . DO YOU HAVE HISTORY OF MRSA? NO . MUSCULOSKELETAL: ANY NEW PATTERNS OF PAIN OR NUMBNESS? YES, PAIN IS WORSE . GASTROENTEROLOGY: ANY NEW CHANGE IN BOWEL CONTROL? NO . GENITOURINARY: ANY NEW CHANGE IN BLADDER CONTROL? NO . IS THERE A CHANCE YOU COULD BE ? NO . HEMATOLOGY/LYMPH: DO YOU TAKE ANY BLOOD THINNERS? (FOR EXAMPLE- COUMADIN, PLAVIX, AGGRENOX, PLATEL, PRADAXA, OR XARELTO) NO . WHEN WAS YOUR LAST DOSE? DATE: TIME: . NEUROLOGY: HAVE YOU FALLEN IN THE PAST 12 MONTHS? NO . ANY NEW EXTREMITY NUMBNESS OR WEAKNESS? NO . CARDIOLOGY: DO YOU HAVE A PACEMAKER OR DEFIBRILLATOR? NO . RESPIRATORY: HAVE YOU BEEN SICK IN THE PAST WEEK? YES, SINUSITIS, TXD W ABX, RESOLVING . FEVER NO . FLU LIKE SYMPTOMS? NO . COUGH NO . INTEGUMENTARY: DO YOU HAVE ANY RASHES OR OPEN SORES? NO . ALLERGIC/IMMUNO: ARE YOU ALLERGIC TO IV DYE? NO . ANY NEW ALLERGIES? NO . PSYCHIATRIC: DO YOU HAVE THOUGHTS OF HURTING YOURSELF OR SOMEONE ELSE? NO . ARE YOU ABUSED, NEGLECTED, OR IN AN UNSAFE ENVIRONMENT? NO . ENDOCRINOLOGY: ARE YOU DIABETIC? NO . OTHER: DO YOU NEED ANY PRESCRIPTIONS? NO . IF YES, PLEASE LIST: ____ . ANY NEW PROBLEMS WITH YOUR MEDICATIONS? NO . WHEN DID YOU LAST EAT? ____ . WHEN DID YOU LAST DRINK? ____ . WHAT DID YOU LAST DRINK? ____ . NAME OF PERSON DRIVING YOU HOME? ____ . DO YOU HAVE ANY OTHER QUESTIONS OR CONCERNS PT C/O RASH TO ABD, CHEST, NECK AND ARMS X 4 DAYS. MED CHANGES CYMBALTA INCREASED FROM 30MG TO 40 MG (1 1/2 WEEKS AGO), STARTED AUGMENTIN (6 DAYS AGO). PT DENIES HX OF THIS RASH. PT STATES RASH ITHES OCCASSIONALLY, PT DENIES ANY CHANGES WITH SOAPS OR DETERGENTS, PT DENIES ANY NEW FOOD CHANGES. PT ASKING IF RASH IS RXN TO MEDS? . VITAL SIGNS WT 152 LBS, HT 5'5", BMI 25.29 INDEX, BP 128/77 MM HG, HR 92 /MIN, RR 16 /MIN, TEMP 96.6 F, OXYGEN SAT % 99%, NA INITIALS SC 14:41, REVIEWED BY: LARISSA. EXAMINATION GENERAL EXAMINATION: GENERALAWAKE,ALERT ,PLEAASANT . PSYCHAFFECT NORMAL . LUNGS:LUNG HDZ ARE CLEAR TO AUSCULTATION BILATERALLY. GOOD MOVEMENT OF AIR . HEART:S1, S2 IN A REGULAR RATE AND RHYTHM. NO SIGNIFICANT MURMURS, RUBS OR GALLOPS NOTED . ASSESSMENTS POST LAMINECTOMY SYNDROME - M96.1 (PRIMARY) TREATMENT POST LAMINECTOMY SYNDROME CONTINUE TRAMADOL HCL TABLET, 50 MG, 1-2 TAB, ORALLY, Q8H PRN MDD6 NOTES: ISTOP REGISTRY REVIEWED AND DEMONSTRATES COMPLLIANCE. BRINGS IN MEDICATIONS WHICH IS APPROPRIATE FOR WHAT WAS DISPENSED. RECENT URINE TOXICOLOGY REVIEWED. NO UNAUTHORIZED MEDICATIONS. NO ILLICIT SUBSTANCES AND PRESCRIBED MEDICATIONS WERE PRESENT. URINE TOX TODAY, RISKS OF NARCOTIC/OPIOD MEDICATIONS INCLUDES BUT IS NOT LIMITED TO RISK OF DEPENDANCE/DEVELOPMENT OF ADDICTION, MOOD DISTURBANCE AND DEPRESSION, OSTEOPOROSIS, HORMONAL AND LABIDAL CHANGES, RESPIRATORY DEPRESSION AND . PATIENT IS ADVISED NOT TO DRIVE OR DRINK ALCOHOL WHILE ON THESE MEDICATIONS. DISPOSITION & COMMUNICATION FOLLOW UP 3 MONTHS ELECTRONICALLY SIGNED BY ALVIN RIVERS ON 02/07/2019 AT 01:33 PM EST DISCLAIMER : THIS IS A VISIT SUMMARY EXTRACTED FROM THE [employer] CHART. IT IS NOT A COPY OF THE [employer] PROGRESS NOTE. THAI
== END ==
LOC: M PAIN 14:15
PROVIDERS: ATTEND Nurse Practitioner Family
DX: M96.1 Postlaminectomy syndrome, not elsewhere classified (principal); F17.210 Nicotine dependence, cigarettes, uncomplicated; Z88.1 Allergy status to other antibiotic agents; Z79.891 Long term (current) use of opiate analgesic; Z79.899 Other long term (current) drug therapy

== ENCOUNTER → 2019-02-01 | Outpatient (CLI) | payer OTHER ==
--- NOTE | 2019-02-01 14:48 | REP ---
Chest x-ray: Two views. History: Shortness of breath and cough . Comparison study: September 16, 2013 . Findings: The lungs are well inflated and free of infiltrate. The pleural angles are sharp. The heart size is normal. Pulmonary vasculature is not increased. No significant bony abnormality is seen. Impression: Negative chest x-ray. Electronically Signed by Moreno Emanuel MD 02/01/2019 02:40 P
== END ==
LOC: M WUC 14:20
PROVIDERS: ATTEND Physician Assistant
DX: R06.02 Shortness of breath (principal); R05 Cough; F17.210 Nicotine dependence, cigarettes, uncomplicated

== ENCOUNTER → 2019-04-21 | Outpatient (CLI) | payer OTHER ==
[~2019-04-21] MED LIST changes: +ABIL1TAB11 PO; +LAMI25CH PO; +SPIR50TA4 PO; +TRAZ-252 PO
--- NOTE | 2019-05-09 08:13 | ECWPNPC ---
PATIENT NAME: MARTÍN GILLIS : 1990 GENDER: FEMALE VISIT DATE: 04/21/2019 DISCHARGE DATE: 04/21/19 1433 VISIT LOCKED DATE TIME: PHYSICIAN: AURELIO PICHARDO RESOURCE: AURELIO PICHARDO REASON FOR APPOINTMENT 1. BACK PAIN HISTORY OF PRESENT ILLNESS HISTORY OF PRESENT ILLNESS: HERE FOR F/U OF CHRONIC LOW BACK PAIN.RATING PAIN VAS 7/10.TRAMADOL IS HELPFUL.DISCUSSED MEDICATION OPTIONS. PAIN THE PATIENT DESCRIBES THE PAIN... FALL RISK SCREENING: SCREENING :NO FALLS REPORTED IN THE LAST YEAR CURRENT MEDICATIONS TAKING IBUPROFEN 200 MG TABLET 3 TABLETS ORALLY EVERY 6 HRS PRN TAKING SPIRONOLACTONE 50 MG TABLET 1 TABLET ORALLY DAILY TAKING ABILIFY 2 MG TABLET 1 TABLET ORALLY ONCE A DAY TAKING TRAZODONE HCL 50 MG TABLET 1 TABLET AT BEDTIME NEEDED ORALLY ONCE A DAY TAKING TOPAMAX 25 MG TABLET 1 TABLET ORALLY TWICE A DAY TAKING TRAMADOL HCL 50 MG TABLET 1-2 TAB ORALLY Q8H PRN MDD6 TAKING LAMICTAL 25 MG TABLET 1 TABLET ORALLY NOT-TAKING ALPRAZOLAM 0.25 MG TABLET 1 TABLET ORALLY TID PRN NOT-TAKING ZZZQUIL 50 MG/30ML LIQUID ORALLY BEFORE BEDTIME NOT-TAKING MULTI FOR HER - TABLET ORALLY NOT-TAKING LEXAPRO 10 MG TABLET 1 TABLET ORALLY ONCE A DAY NOT-TAKING ADVIL PM 200-38 MG TABLET 2 TABLETS AT BEDTIME NEEDED ORALLY ONCE A DAY NOT-TAKING CYMBALTA 20 MG CAPSULE DELAYED RELEASE PARTICLES 2 CAPSULE ORALLY ONCE A DAY NOT-TAKING GABAPENTIN 100 MG CAPSULE 1 CAPSULE ORALLY BID NOT-TAKING PREVIFEM 0.25-35 MG-MCG TABLET 1 TABLET ORALLY ONCE A DAY NOT-TAKING RIBOFLAVIN 25 MG TABLET 1 TABLET WITH A MEAL ORALLY ONCE A DAY NOT-TAKING IMITREX 100 MG TABLET 1 TABLET NEEDED ORALLY TWICE A DAY NOT-TAKING LIDOCAINE HCL JELLY MCC 2 % JELLY 1 APPLICATION TO AFFECTED AREA NEEDED INTRAVESICALLY PRIOR TO PROCEDURE NOT-TAKING PERCOCET 5-325 MG TABLET 1 TABLET NEEDED ORALLY Q8H PRN MDD3 NOT-TAKING CIPRO 500 MG TABLET 1 TABLET ORALLY DIRECTED NOT-TAKING SOMA 350 MG TABLET 1 TABLET NEEDED ORALLY BEFORE BEDTIME PRN MDD1 NOT-TAKING ORSYTHIA 0.1-20 MG-MCG TABLET ORALLY NOT-TAKING ROBAXIN 500 MG TABLET 1 ORALLY Q8H PRN MDD3 NOT-TAKING MELOXICAM 7.5 MG TABLET 1 CAP ORALLY DAILY MEDICATION LIST REVIEWED AND RECONCILED WITH THE PATIENT PAST MEDICAL HISTORY KIDNEY STONES GERD HYPERTENSION WHILE PREG. ABNORMAL EKG'S --SEES [facility] MEDULARY SPONGE KIDNEY ALLERGIES BACTRIM: PERSONALITY CHANGE - ALLERGY CEFZIL: HIVES - ALLERGY SURGICAL HISTORY TYMPANOSTOMY TUBE INSERTION 1992 ARTHROSCOPIC ANKLE SURGERY RIGHT 2007 UPPER ENDOSCOPY 2012 CHOLECYSTECTOMY 2012 APPENDECTOMY 2012 LUMBAR LAMINECTOMY 02/21/15 RIGHT KNEE SURGERY 12/2017 FAMILY HISTORY FATHER: 44 YRS, DIAGNOSED WITH HYPERTENSION, UNSPECIFIED HEART DISEASE MOTHER: ALIVE, OTHER SPECIFIED CONDITIONS INFLUENCING HEALTH STATUS SIBLINGS: ALIVE 1 BROTHER(S) - HEALTHY. 1 SON(S) - HEALTHY. MOM--SKIN CANCER AND BACK PROBLEMS. SOCIAL HISTORY GENERAL: TOBACCO USE ARE YOU A:CURRENT SMOKER ARE YOU INTERESTED IN QUITTING?NOT READY TO QUIT COUNSELED THE PATIENT ON SMOKING EFFECTS, EDUCATION [id number] HOW MANY CIGARETTES A DAY DO YOU SMOKE?11-20 HOW SOON AFTER YOU WAKE UP DO YOU SMOKE YOUR FIRST CIGARETTE?6-30 MIN PATIENT COUNSELED ON THE DANGERS OF TOBACCO USE AND URGED TO QUIT:04/21/2019 SMOKING CESSATION INFORMATION GIVEN10/21/2018 OTHERS AT HOME: MOTHER, OTHER NON-RELATIVE, CHILD. EDUCATION SOME COLLEGE PLAN OF CARE FOR PAIN CENTER REVIEWED WITH PAT. AND SHE VERBALIZED UNDERSTANDING.. DIET: REGULAR. LANGUAGE ARGENTINE. DOMESTIC VIOLENCE NONE. RECREATIONAL DRUG USE DENIES. EXERCISE: WALKS. LEARNING BARRIERS / SPECIAL NEEDS BARRIERS TO LEARNING?NO HEARING IMPAIRED?NO VISION IMPAIRED?YES COGNITIVELY IMPAIRED?NO :CORRECTIVE LENSES READINESS TO LEARN?YES LEARNING PREFERENCES?YES :DEMONSTRATION/VERBAL INSTRUCTION LEARNING CAPABILITIES PRESENT?NO EMOTIONAL BARRIERS?NO PAIN CLINIC PFS, CLERGY, PUBLIC HEALTH REFERRALS PFS REFERRAL NEEDED?NO CLERGY REFERRAL NEEDED?NO PUBLIC HEALTH REFERRAL NEEDED?NO WAS THE PROVIDER NOTIFIED OF ANY PERTINENT INFO?YES HAS THE PATIENT BEEN EDUCATED REGARDING HIS/HER PLAN OF CARE?YES HAS THE PATIENT BEEN EDUCATED REGARDING PAIN, THE RISK FOR PAIN, THE IMPORTANCE OF EFFECTIVE PAIN MANAGEMENT, AND THE PAIN ASSESSMENT PROCESS?YES LATEX QUESTIONNAIRE LATEX ALLERGY : HAVE YOU EVER DEVELOPED ANY TYPE OF REACTION AFTER HANDLING LATEX PRODUCTS SUCH RUBBER GLOVES, CONDOMS, DIAPHRAGMS, BALLOONS, SOCKS, OR UNDERWEAR?NO LATEX ALLERGY : HAVE YOU EVER DEVELOPED ANY TYPE OF REACTION DURING OR AFTER DENTAL APPOINTMENT, VAGINAL/RECTAL EXAMINATION, SURGICAL PROCEDURE, OR ANY OTHER EXPOSURE?NO LATEX RISK : HAVE YOU EVER HAD ANY DIFFICULTY BREATHING OR HIVES AFTER EATING OR HANDLING ANY FRUITS, OR VEGETABLES; SUCH KIWI, BANANAS, STONE FRUITS, OR CHESTNUTSYES - PLEASE INDICATE : BANANAS STOMACH CRAMPS WHEN EATING BANANAS. LATEX RISK : DO YOU HAVE A PREVIOUS PERSONAL HISTORY OF MORE THAN NINE SURGERIES, SPINA BIFIDA, OR REPEATED CATHERIZATIONS? NO LATEX RISK : ARE YOU FREQUENTLY EXPOSED TO LATEX PRODUCTS IN YOUR OCCUPATION?NO DATE ASKED : 04/21/2019 CAFFEINE 2-5/DAY. ADVANCE DIRECTIVE ADVANCE DIRECTIVE DISCUSSED WITH PATIENT:YES 04/21/2019 PATIENT HAS NO ADVANCED DIRECTIVES, DECLINED INFORMATION AT THIS TIME. JS GNOSTICISM NO SABIANIST BELIEFS THAT WOULD IMPACT HEALTH CARE. MARITAL STATUS: SINGLE. ALCOHOL SCREENING DID YOU HAVE A DRINK CONTAINING ALCOHOL IN THE PAST YEAR?NO POINTS0 INTERPRETATIONNEGATIVE OCCUPATION: UNEMPLOYED. SEXUAL HX HAD SEX IN THE LAST 12 MONTHS (VAGINAL, ORAL, OR ANAL)?NO HAVE YOU EVER HAD AN STD?NO REVIEWED WITH PATIENT 10/21/18 NLJREVIEWED WITH PATIENT 04/21/2019 1344 JS. HOSPITALIZATION/MAJOR DIAGNOSTIC PROCEDURE SURGERY RELATED CHILDBIRTH REVIEW OF SYSTEMS REVIEWED BY: PROVIDER: AURELIO ESQUIVEL . CONSTITUTIONAL: ANY CHANGE IN YOUR MEDICAL CONDITION? NO . CHILLS NO . FEVER NO . INFECTION: DO YOU HAVE NEW INFECTIONS? NO . DO YOU HAVE HISTORY OF MRSA? NO . MUSCULOSKELETAL: ANY NEW PATTERNS OF PAIN OR NUMBNESS? NO . GASTROENTEROLOGY: ANY NEW CHANGE IN BOWEL CONTROL? NO . GENITOURINARY: ANY NEW CHANGE IN BLADDER CONTROL? NO . IS THERE A CHANCE YOU COULD BE ? NO . HEMATOLOGY/LYMPH: DO YOU TAKE ANY BLOOD THINNERS? (FOR EXAMPLE- COUMADIN, PLAVIX, AGGRENOX, PLATEL, PRADAXA, OR XARELTO) NO . WHEN WAS YOUR LAST DOSE? DATE: TIME: . NEUROLOGY: HAVE YOU FALLEN IN THE PAST 12 MONTHS? NO . ANY NEW EXTREMITY NUMBNESS OR WEAKNESS? NO . CARDIOLOGY: DO YOU HAVE A PACEMAKER OR DEFIBRILLATOR? NO . RESPIRATORY: HAVE YOU BEEN SICK IN THE PAST WEEK? YES, STATES A COLD . FEVER NO . FLU LIKE SYMPTOMS? NO . COUGH NO . INTEGUMENTARY: DO YOU HAVE ANY RASHES OR OPEN SORES? NO . ALLERGIC/IMMUNO: ARE YOU ALLERGIC TO IV DYE? NO . ANY NEW ALLERGIES? NO . PSYCHIATRIC: DO YOU HAVE THOUGHTS OF HURTING YOURSELF OR SOMEONE ELSE? NO . ARE YOU ABUSED, NEGLECTED, OR IN AN UNSAFE ENVIRONMENT? NO . ENDOCRINOLOGY: ARE YOU DIABETIC? NO . OTHER: DO YOU NEED ANY PRESCRIPTIONS? YES . IF YES, PLEASE LIST: ____TRAMADOL . ANY NEW PROBLEMS WITH YOUR MEDICATIONS? NO . WHEN DID YOU LAST EAT? ____ . WHEN DID YOU LAST DRINK? ____ . WHAT DID YOU LAST DRINK? ____ . NAME OF PERSON DRIVING YOU HOME? ____ . DO YOU HAVE ANY OTHER QUESTIONS OR CONCERNS NO . VITAL SIGNS WT 163.4 LBS, HT 5'5", BMI 27.19 INDEX, BP 131/76 MM HG, HR 90 /MIN, RR 16 /MIN, TEMP 97.1 F, OXYGEN SAT % 99%, SAFE IN ENV? (Y/N) YES, NA INITIALS AW 1337, REVIEWED BY: SARAH. EXAMINATION GENERAL EXAMINATION: GENERALAWAKE,ALERT ,PLEAASANT . PSYCHAFFECT NORMAL . LUNGS:LUNG HDZ ARE CLEAR TO AUSCULTATION BILATERALLY. GOOD MOVEMENT OF AIR . HEART:S1, S2 IN A REGULAR RATE AND RHYTHM. NO SIGNIFICANT MURMURS, RUBS OR GALLOPS NOTED . ASSESSMENTS POST LAMINECTOMY SYNDROME - M96.1 (PRIMARY) TREATMENT POST LAMINECTOMY SYNDROME REFILL TRAMADOL HCL TABLET, 50 MG, 1-2 TAB, ORALLY, Q8H PRN MDD6, 30 DAYS, 180, REFILLS 2 NOTES: ISTOP REGISTRY REVIEWED AND DEMONSTRATES COMPLLIANCE. BRINGS IN MEDICATIONS WHICH IS APPROPRIATE FOR WHAT WAS DISPENSED. RECENT URINE TOXICOLOGY REVIEWED. NO UNAUTHORIZED MEDICATIONS. NO ILLICIT SUBSTANCES AND PRESCRIBED MEDICATIONS WERE PRESENT. , RISKS OF NARCOTIC/OPIOD MEDICATIONS INCLUDES BUT IS NOT LIMITED TO RISK OF DEPENDANCE/DEVELOPMENT OF ADDICTION, MOOD DISTURBANCE AND DEPRESSION, OSTEOPOROSIS, HORMONAL AND LABIDAL CHANGES, RESPIRATORY DEPRESSION AND . PATIENT IS ADVISED NOT TO DRIVE OR DRINK ALCOHOL WHILE ON THESE MEDICATIONS. PROCEDURE CODES FA211 ESTABILISHED PATIENT [facility] CHARGE DISPOSITION & COMMUNICATION FOLLOW UP 3 MONTHS (REASON: MED MGMNT) ELECTRONICALLY SIGNED BY ALVIN RIVERS ON 05/08/2019 AT 04:43 PM EST DISCLAIMER : THIS IS A VISIT SUMMARY EXTRACTED FROM THE [employer] CHART. IT IS NOT A COPY OF THE [employer] PROGRESS NOTE. THAI
== END ==
LOC: M PAIN 13:15
PROVIDERS: ATTEND Nurse Practitioner Family
DX: M96.1 Postlaminectomy syndrome, not elsewhere classified (principal)

== ENCOUNTER 2019-05-12 12:00 | Day surgery (SDC) | payer OTHER ==
[~2019-05-12] VITALS: Ht 165.1 cm; Wt 73.5 kg
[~2019-05-12 12:00] MED LIST changes: +NS 1,000 ML IV ONE
[2019-05-12] MEDS ORDERED: fentaNYL 100 MCG/2 ML INJECTION (J3010) As Ordered ONE (14:34)
[2019-05-12] MEDS ORDERED: propofoL 200 MG/20 ML VIAL As Ordered ONE ×2 (14:34→14:59)
[2019-05-12] MEDS ORDERED: LIDOCAINE 2% INJ 100 MG/5 ML SDV (FOR ANES.) As Ordered ONE (14:34)
--- NOTE | 2019-05-12 14:52 | ROOR ---
Patient Name: Korin Perea Procedure Date: 05/12/2019 2:33 PM Date of : 1990 Age: 28 Room: [facility] Gender: Female Note Status: Finalized Procedure: Upper GI endoscopy Indications: Epigastric abdominal pain, Nausea Providers: Jaime KIM MD Referring MD: FRANCHESCA GUSTAFSON Requesting Provider: Medicines: Monitored Anesthesia Care Complications: No immediate complications. Procedure: Pre-Anesthesia Assessment: - The heart rate, respiratory rate, oxygen saturations, blood pressure, adequacy of pulmonary ventilation, and response to care were monitored throughout the procedure. The Endoscope was introduced through the mouth, and advanced to the second part of duodenum. Findings: The esophagus was normal. The stomach was normal. The examined duodenum was normal. Impression: - Normal esophagus. - Normal stomach. - Normal examined duodenum. - No specimens collected. Recommendation: - Observe patient's clinical course. - Continue present medications. - Use Levsin, NuLev (hyoscyamine) 0.125 mg 1-2 tabs SL q 4 hours PRN. - (the script was sent to your pharmacy on file) Jaime Kim MD Jaime KIM MD 05/12/2019 2:51:48 PM Electronically signed by Jaime KIM MD Number of Addenda: 0 Note Initiated On: 05/12/2019 2:33 PM Estimated Blood Loss: Estimated blood loss: none.
--- NOTE | 2019-05-12 15:18 | ROOR ---
Patient Name: Korin Perea Procedure Date: 05/12/2019 2:34 PM Date of : 1990 Age: 28 Room: OP02 Gender: Female Note Status: Finalized Procedure: Colonoscopy Indications: Generalized abdominal pain, Abdominal pain in the right lower quadrant, Abdominal pain in the right upper quadrant, Suspected irritable bowel syndrome Providers: Jamie KIM MD Referring MD: FRANCHESCA GUSTAFSON Requesting Provider: Medicines: Monitored Anesthesia Care Complications: No immediate complications. Procedure: Pre-Anesthesia Assessment: - The heart rate, respiratory rate, oxygen saturations, blood pressure, adequacy of pulmonary ventilation, and response to care were monitored throughout the procedure. The Colonoscope was introduced through the anus and advanced to 10 cm into the ileum. The colonoscopy was performed without difficulty. The patient tolerated the procedure well. The quality of the bowel preparation was suboptimal, but adequate after lavage. Findings: The perianal and digital rectal examinations were normal. The colon (entire examined portion) appeared normal. The terminal ileum appeared normal. Impression: - The entire examined colon is normal. - The examined portion of the ileum was normal. - No specimens collected. - (Irritable Bowel Syndrome/IBS-C suspected.) Recommendation: - First: Trial on Nulev for pain,bloating,gas, continue Miralax. - (the script was sent to your pharmacy on file) - (Dep on results of Miralax/Nulev, would consider Linzess or Trulance) Jaime Kim MD Jaime KIM MD 05/12/2019 3:18:05 PM Electronically signed by Jaime KIM MD Number of Addenda: 0 Note Initiated On: 05/12/2019 2:34 PM Estimated Blood Loss: Estimated blood loss: none.
[2019-05-12 15:50] VITALS: BP 98/67
== END 2019-05-12 16:08 | disposition home or self-care (01) ==
LOC: M OPP 12:00
PROVIDERS: ATTEND Internal Medicine Gastroenterology
DX: R10.84 Generalized abdominal pain (principal); R10.31 Right lower quadrant pain; R10.11 Right upper quadrant pain; R11.0 Nausea; R10.13 Epigastric pain; R19.4 Change in bowel habit; I10 Essential (primary) hypertension; F41.9 Anxiety disorder, unspecified; F32.9 Major depressive disorder, single episode, unspecified; G43.909 Migraine, unspecified, not intractable, without status migrainosus; F17.210 Nicotine dependence, cigarettes, uncomplicated; K21.9 Gastro-esophageal reflux disease without esophagitis; Z88.1 Allergy status to other antibiotic agents; Z88.2 Allergy status to sulfonamides; Z79.891 Long term (current) use of opiate analgesic; Z79.899 Other long term (current) drug therapy; Z80.8 Family history of malignant neoplasm of other organs or systems; Z83.3 Family history of diabetes mellitus; Z82.49 Family history of ischemic heart disease and other diseases of the circulatory system
CPT/HCPCS: 43235; 45378; J3010

== ENCOUNTER → 2019-07-20 | Outpatient (CLI) | payer OTHER ==
[~2019-07-20] MED LIST changes: -NS 1,000 ML IV ONE
--- NOTE | 2019-07-25 04:46 | ECWPNPC ---
PATIENT NAME: MARTÍN GILLIS : 1990 GENDER: FEMALE VISIT DATE: 07/20/2019 DISCHARGE DATE: 07/20/19 08 VISIT LOCKED DATE TIME: PHYSICIAN: AURELIO PICHARDO RESOURCE: AURELIO PICHARDO REASON FOR APPOINTMENT 1. BACK [phone] PAT PHONE CALL COMPLETED HISTORY OF PRESENT ILLNESS HISTORY OF PRESENT ILLNESS: PATIENT IS AGREEABLE TO TELEPHONE VISIT TODAY. THIS IS A THREE-MONTH MEDICINE MANAGEMENT VISIT. RATING PAIN LEVEL A 7/10 VAS. PAIN IS LOCATED ACROSS HER LOWER BACK. FINDS CURRENT CHRONIC PAIN MEDICATION HELPFUL AT REDUCING HER PAIN AND KEEPING HER FUNCTIONAL. DENIES ADVERSE SIDE EFFECTS. DISCUSSED MEDICATION AND TREATMENT OPTIONS. PAIN THE PATIENT DESCRIBES THE PAIN... FALL RISK SCREENING: SCREENING :NO FALLS REPORTED IN THE LAST YEAR CURRENT MEDICATIONS TAKING IBUPROFEN 200 MG TABLET 3 TABLETS ORALLY EVERY 6 HRS PRN TAKING TRAZODONE HCL 100 MG TABLET 1 TABLET AT BEDTIME NEEDED ORALLY ONCE A DAY TAKING LAMICTAL 100 MG TABLET ORALLY 1 1/2 TABLET TAKING TRAMADOL HCL 50 MG TABLET 1-2 TAB ORALLY Q8H PRN MDD6 TAKING BUSPIRONE HCL 10 MG TABLET 2 TABLETS ORALLY TWICE A DAY TAKING CETIRIZINE HCL 10 MG TABLET 1 TABLET ORALLY ONCE A DAY NOT-TAKING SPIRONOLACTONE 50 MG TABLET 1 TABLET ORALLY DAILY NOT-TAKING ABILIFY 2 MG TABLET 1 TABLET ORALLY ONCE A DAY NOT-TAKING TOPAMAX 25 MG TABLET 1 TABLET ORALLY TWICE A DAY NOT-TAKING ALPRAZOLAM 0.25 MG TABLET 1 TABLET ORALLY TID PRN NOT-TAKING ZZZQUIL 50 MG/30ML LIQUID ORALLY BEFORE BEDTIME NOT-TAKING MULTI FOR HER - TABLET ORALLY NOT-TAKING LEXAPRO 10 MG TABLET 1 TABLET ORALLY ONCE A DAY NOT-TAKING ADVIL PM 200-38 MG TABLET 2 TABLETS AT BEDTIME NEEDED ORALLY ONCE A DAY NOT-TAKING CYMBALTA 20 MG CAPSULE DELAYED RELEASE PARTICLES 2 CAPSULE ORALLY ONCE A DAY NOT-TAKING GABAPENTIN 100 MG CAPSULE 1 CAPSULE ORALLY BID NOT-TAKING PREVIFEM 0.25-35 MG-MCG TABLET 1 TABLET ORALLY ONCE A DAY NOT-TAKING RIBOFLAVIN 25 MG TABLET 1 TABLET WITH A MEAL ORALLY ONCE A DAY NOT-TAKING IMITREX 100 MG TABLET 1 TABLET NEEDED ORALLY TWICE A DAY NOT-TAKING LIDOCAINE HCL JELLY HALFWAY 2 % JELLY 1 APPLICATION TO AFFECTED AREA NEEDED INTRAVESICALLY PRIOR TO PROCEDURE NOT-TAKING PERCOCET 5-325 MG TABLET 1 TABLET NEEDED ORALLY Q8H PRN MDD3 NOT-TAKING CIPRO 500 MG TABLET 1 TABLET ORALLY DIRECTED NOT-TAKING SOMA 350 MG TABLET 1 TABLET NEEDED ORALLY BEFORE BEDTIME PRN MDD1 NOT-TAKING ORSYTHIA 0.1-20 MG-MCG TABLET ORALLY NOT-TAKING ROBAXIN 500 MG TABLET 1 ORALLY Q8H PRN MDD3 NOT-TAKING MELOXICAM 7.5 MG TABLET 1 CAP ORALLY DAILY MEDICATION LIST REVIEWED AND RECONCILED WITH THE PATIENT PAST MEDICAL HISTORY KIDNEY STONES GERD HYPERTENSION WHILE PREG. ABNORMAL EKG'S --SEES [facility] MEDULARY SPONGE KIDNEY ALLERGIES BACTRIM: PERSONALITY CHANGE - ALLERGY CEFZIL: HIVES - ALLERGY SURGICAL HISTORY TYMPANOSTOMY TUBE INSERTION 1992 ARTHROSCOPIC ANKLE SURGERY RIGHT 2007 UPPER ENDOSCOPY 2012 CHOLECYSTECTOMY 2012 APPENDECTOMY 2012 LUMBAR LAMINECTOMY 02/21/15 RIGHT KNEE SURGERY 12/2017 FAMILY HISTORY FATHER: 44 YRS, DIAGNOSED WITH HYPERTENSION, UNSPECIFIED HEART DISEASE MOTHER: ALIVE, OTHER SPECIFIED CONDITIONS INFLUENCING HEALTH STATUS SIBLINGS: ALIVE 1 BROTHER(S) - HEALTHY. 1 SON(S) - HEALTHY. MOM--SKIN CANCER AND BACK PROBLEMS. SOCIAL HISTORY GENERAL: TOBACCO USE ARE YOU A:CURRENT SMOKER HOW SOON AFTER YOU WAKE UP DO YOU SMOKE YOUR FIRST CIGARETTE?6-30 MIN HOW MANY CIGARETTES A DAY DO YOU SMOKE?11-20 ARE YOU INTERESTED IN QUITTING?NOT READY TO QUIT PATIENT COUNSELED ON THE DANGERS OF TOBACCO USE AND URGED TO QUIT:04/21/2019 COUNSELED THE PATIENT ON SMOKING EFFECTS, EDUCATION [id number]/2020 SMOKING CESSATION INFORMATION GIVEN10/21/2018 LATEX QUESTIONNAIRE LATEX ALLERGY : HAVE YOU EVER DEVELOPED ANY TYPE OF REACTION AFTER HANDLING LATEX PRODUCTS SUCH RUBBER GLOVES, CONDOMS, DIAPHRAGMS, BALLOONS, SOCKS, OR UNDERWEAR?NO LATEX ALLERGY : HAVE YOU EVER DEVELOPED ANY TYPE OF REACTION DURING OR AFTER DENTAL APPOINTMENT, VAGINAL/RECTAL EXAMINATION, SURGICAL PROCEDURE, OR ANY OTHER EXPOSURE?NO DATE ASKED : 04/21/2019 LATEX RISK : HAVE YOU EVER HAD ANY DIFFICULTY BREATHING OR HIVES AFTER EATING OR HANDLING ANY FRUITS, OR VEGETABLES; SUCH KIWI, BANANAS, STONE FRUITS, OR CHESTNUTSYES - PLEASE INDICATE : BANANAS STOMACH CRAMPS WHEN EATING BANANAS. LATEX RISK : DO YOU HAVE A PREVIOUS PERSONAL HISTORY OF MORE THAN NINE SURGERIES, SPINA BIFIDA, OR REPEATED CATHERIZATIONS? NO LATEX RISK : ARE YOU FREQUENTLY EXPOSED TO LATEX PRODUCTS IN YOUR OCCUPATION?NO ALCOHOL SCREENING DID YOU HAVE A DRINK CONTAINING ALCOHOL IN THE PAST YEAR?NO POINTS0 INTERPRETATIONNEGATIVE RECREATIONAL DRUG USE DENIES. CAFFEINE 2-5/DAY. SEXUAL HX HAD SEX IN THE LAST 12 MONTHS (VAGINAL, ORAL, OR ANAL)?NO HAVE YOU EVER HAD AN STD?NO RASTAFARIAN NO DRUZE BELIEFS THAT WOULD IMPACT HEALTH CARE. LANGUAGE LUXEMBOURGER. EDUCATION SOME COLLEGE PLAN OF CARE FOR PAIN CENTER REVIEWED WITH PAT. AND SHE VERBALIZED UNDERSTANDING.. LEARNING BARRIERS / SPECIAL NEEDS BARRIERS TO LEARNING?NO HEARING IMPAIRED?NO VISION IMPAIRED?YES COGNITIVELY IMPAIRED?NO :CORRECTIVE LENSES READINESS TO LEARN?YES LEARNING PREFERENCES?YES :DEMONSTRATION/VERBAL INSTRUCTION LEARNING CAPABILITIES PRESENT?NO EMOTIONAL BARRIERS?NO DOMESTIC VIOLENCE NONE. OCCUPATION: UNEMPLOYED. DIET: REGULAR. EXERCISE: WALKS. MARITAL STATUS: SINGLE. OTHERS AT HOME: MOTHER, OTHER NON-RELATIVE, CHILD. NEW PATIENT PAIN DIARY TODAY'S VISIT 07/19/2019 PATIENT DESCRIBES PAIN :ACHING, HAVE IT ALL THE TIME, SHARP FROM 0-10, WHAT LEVEL IS YOUR PAIN TODAY?7 PRECIPITATING FACTORS PROLONGED STANDING OR WALKING, SITTING, OR HEAVY LIFTING ALLEVIATING FACTORS CHANGING POSITIONS, HEATING PAD PAIN CLINIC PFS, CLERGY, PUBLIC HEALTH REFERRALS PFS REFERRAL NEEDED?NO CLERGY REFERRAL NEEDED?NO PUBLIC HEALTH REFERRAL NEEDED?NO WAS THE PROVIDER NOTIFIED OF ANY PERTINENT INFO?YES HAS THE PATIENT BEEN EDUCATED REGARDING HIS/HER PLAN OF CARE?YES HAS THE PATIENT BEEN EDUCATED REGARDING PAIN, THE RISK FOR PAIN, THE IMPORTANCE OF EFFECTIVE PAIN MANAGEMENT, AND THE PAIN ASSESSMENT PROCESS?YES ADVANCE DIRECTIVE ADVANCE DIRECTIVE DISCUSSED WITH PATIENT:YES 04/21/2019 PATIENT HAS NO ADVANCED DIRECTIVES, DECLINED INFORMATION AT THIS TIME. JS REVIEWED WITH PATIENT 10/21/18 NLJREVIEWED WITH PATIENT 04/21/2019 1344 JS. HOSPITALIZATION/MAJOR DIAGNOSTIC PROCEDURE SURGERY RELATED CHILDBIRTH REVIEW OF SYSTEMS REVIEWED BY: PROVIDER: AURELIO ESQUIVEL . CONSTITUTIONAL: ANY CHANGE IN YOUR MEDICAL CONDITION? NO . CHILLS NO . FEVER NO . INFECTION: DO YOU HAVE NEW INFECTIONS? NO . DO YOU HAVE HISTORY OF MRSA? NO . MUSCULOSKELETAL: ANY NEW PATTERNS OF PAIN OR NUMBNESS? YES OCCASIONAL SCIATIC PAIN . GASTROENTEROLOGY: ANY NEW CHANGE IN BOWEL CONTROL? NO . GENITOURINARY: ANY NEW CHANGE IN BLADDER CONTROL? NO . IS THERE A CHANCE YOU COULD BE ? NO . HEMATOLOGY/LYMPH: DO YOU TAKE ANY BLOOD THINNERS? (FOR EXAMPLE- COUMADIN, PLAVIX, AGGRENOX, PLATEL, PRADAXA, OR XARELTO) NO . WHEN WAS YOUR LAST DOSE? DATE: TIME: . NEUROLOGY: HAVE YOU FALLEN IN THE PAST 12 MONTHS? NO . ANY NEW EXTREMITY NUMBNESS OR WEAKNESS? NO . CARDIOLOGY: DO YOU HAVE A PACEMAKER OR DEFIBRILLATOR? NO . RESPIRATORY: HAVE YOU BEEN SICK IN THE PAST WEEK? NO . FEVER NO . FLU LIKE SYMPTOMS? NO . COUGH NO . INTEGUMENTARY: DO YOU HAVE ANY RASHES OR OPEN SORES? NO . ALLERGIC/IMMUNO: ARE YOU ALLERGIC TO IV DYE? NO . ANY NEW ALLERGIES? NO . PSYCHIATRIC: DO YOU HAVE THOUGHTS OF HURTING YOURSELF OR SOMEONE ELSE? NO . ARE YOU ABUSED, NEGLECTED, OR IN AN UNSAFE ENVIRONMENT? NO . ENDOCRINOLOGY: ARE YOU DIABETIC? NO . OTHER: DO YOU NEED ANY PRESCRIPTIONS? YES TRAMADOL . IF YES, PLEASE LIST: ____ . ANY NEW PROBLEMS WITH YOUR MEDICATIONS? NO . WHEN DID YOU LAST EAT? ____ . WHEN DID YOU LAST DRINK? ____ . WHAT DID YOU LAST DRINK? ____ . NAME OF PERSON DRIVING YOU HOME? ____ . DO YOU HAVE ANY OTHER QUESTIONS OR CONCERNS NO . ASSESSMENTS POST LAMINECTOMY SYNDROME - M96.1 (PRIMARY) TREATMENT POST LAMINECTOMY SYNDROME CONTINUE TRAMADOL HCL TABLET, 50 MG, 1-2 TAB, ORALLY, Q8H PRN MDD6 NOTES: CONTINUE TRAMADOL 50 MG 2 TABLETS 3 TIMES A DAY. FOLLOW-UP AT CLINIC IN 3 MONTHS. URINE TOXICOLOGY AT FOLLOW-UP. TOTAL TIME DURING TELEPHONE VISIT WAS APPROXIMATELY 11 MINUTES. DISPOSITION & COMMUNICATION FOLLOW UP 3 MONTHS IN CLINIC (REASON: MED MGMNT/UTOX) ELECTRONICALLY SIGNED BY ALVIN RIVERS ON 07/24/2019 AT 03:05 PM EDT DISCLAIMER : THIS IS A VISIT SUMMARY EXTRACTED FROM THE [employer] CHART. IT IS NOT A COPY OF THE [employer] PROGRESS NOTE. MTDD
== END ==
LOC: M PAIN 11:30
PROVIDERS: ATTEND Nurse Practitioner Family
DX: M96.1 Postlaminectomy syndrome, not elsewhere classified (principal); F17.210 Nicotine dependence, cigarettes, uncomplicated; Z88.1 Allergy status to other antibiotic agents; Z79.891 Long term (current) use of opiate analgesic; Z79.899 Other long term (current) drug therapy

== ENCOUNTER → 2019-10-05 | Outpatient (POV) | payer OTHER ==
[~2019-10-05] MED LIST changes: +HYDR1CAP25 PO; +MIRE1IUD IU; +REXU1TAB4 PO
== END ==
LOC: M PAIN 12:00
PROVIDERS: ATTEND Nurse Practitioner Family
DX: M96.1 Postlaminectomy syndrome, not elsewhere classified (principal)

== ENCOUNTER → 2019-10-12 | Outpatient (REF) | payer OTHER | LOC: M LAB REF 15:24 | PROVIDERS: ATTEND Physician Assistant | DX: J02.9 Acute pharyngitis, unspecified (principal) ==

== ENCOUNTER → 2019-10-14 | Outpatient (CLI) | payer OTHER ==
--- NOTE | 2019-11-29 12:23 | ECGEPIP ---
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 FIRST DEGREE AV BLOCK. THALIA. RIGHTWARD AXIS. LOW QRS VOLTAGE;IN LIMB LEADS; S SUGGESTS PULMONARY DISEASE. PERSISTANT S WAVE V5-6. COMPARISON TRACING N/A SEE DOWNTIME SCANNED REPORT
== END ==
LOC: M EKG 12:45
PROVIDERS: ATTEND Otolaryngology
DX: Z53.9 Procedure and treatment not carried out, unspecified reason (principal)

== ENCOUNTER → 2019-10-16 | Outpatient (CLI) | payer OTHER | LOC: M LABSMTC 12:00 | PROVIDERS: ATTEND Anesthesiology | DX: Z01.812 Encounter for preprocedural laboratory examination (principal); Z20.828 Contact with and (suspected) exposure to other viral communicable diseases | CPT/HCPCS: C9803; U0002 ==

== ENCOUNTER 2019-10-19 09:30 | Day surgery (SDC) | payer OTHER ==
[~2019-10-19 09:30] MED LIST changes: -HYDR1CAP25 PO; -MIRE1IUD IU; -REXU1TAB4 PO
[2019-10-19] MEDS ORDERED: ONDANSETRON 4MG/2ML VIAL As Ordered ONE (10:04)
[2019-10-19] MEDS ORDERED: LIDOCAINE 2% 100MG/5ML SDV (FOR ANES.) As Ordered ONE (10:04)
[2019-10-19] MEDS ORDERED: propofoL 200 MG/20 ML VIAL As Ordered ONE (10:04)
[2019-10-19] MEDS ORDERED: SUGAMMADEX SODIUM 500 MG/5 ML VIAL (BRIDION) As Ordered ONE (10:04)
[2019-10-19] MEDS ORDERED: dexameTHASONE 4 MG/ML 1ML VIAL (J1100 PER 1MG) As Ordered ONE (10:04)
[2019-10-19] MEDS ORDERED: MIDAZOLAM INJ 2MG/2ML VIAL (J2250 PER 1MG) As Ordered ONE (10:05)
[2019-10-19] MEDS ORDERED: fentaNYL 100 MCG/2 ML INJECTION (J3010) As Ordered ONE ×3 (10:05→11:39)
[2019-10-19] MEDS ORDERED: LIDOCAINE W/EPINEPHRINE 1% 20ML VIAL As Ordered ONE (10:26)
[2019-10-19] MEDS ORDERED: CIPRODEX OTIC SUSP 7.5ML As Ordered ONE (10:27)
[2019-10-19] MEDS ORDERED: PERCOCET 5MG/325MG TAB As Ordered ONE ×2 (11:46→12:17)
[2019-10-19] MEDS ORDERED: PERCOCET 5MG/325MG TAB ONE ×2 (11:46→12:17)
[2019-10-19] MEDS ORDERED: KETOROLAC 30 MG/ML 1ML VIAL ONE (12:43)
[2019-10-19] MEDS ORDERED: KETOROLAC 30 MG/ML 1ML VIAL As Ordered ONE (12:43)
--- NOTE | 2019-12-14 10:48 | RO ---
DATE OF OPERATION: October 19, 2019 PREOPERATIVE DIAGNOSIS: Chronic tonsillitis. POSTOPERATIVE DIAGNOSIS: Chronic tonsillitis. OPERATIVE PROCEDURES: * Tonsillectomy. * Bilateral tympanostomy. PROCEDURE IN DETAIL: Under general anesthesia, with the patient intubated, the patient was draped in the usual manner. A speculum was placed in the left ear. Wax was cleaned. An incision was made anterior-inferior. A Triune tube was placed. The same procedure was performed on the opposite side. A Kelley-Biju mouth gag was inserted. The tonsil area was infiltrated with lidocaine with epinephrine and Marcaine. Using the cautery, I dissected the tonsil free from its bed on both sides. Bleeding sites on the tonsil were controlled with cautery. No blood loss. The patient tolerated the procedure well. The patient was extubated and transferred to the recovery room in excellent condition. THAI
== END 2019-10-19 13:45 | disposition home or self-care (01) ==
LOC: M SDC 09:30
PROVIDERS: ATTEND Otolaryngology
DX: J35.01 Chronic tonsillitis (principal); H65.23 Chronic serous otitis media, bilateral; Z88.1 Allergy status to other antibiotic agents; F17.218 Nicotine dependence, cigarettes, with other nicotine-induced disorders; K21.9 Gastro-esophageal reflux disease without esophagitis; Z79.899 Other long term (current) drug therapy
CPT/HCPCS: 42826; 69436; 88302; J1100; J1885; J2250; J2405; J3010

== ENCOUNTER 2019-11-29 21:02 | Emergency (ER) | payer OTHER ==
[~2019-11-29] VITALS: Ht 162.6 cm; Wt 80.0 kg
[2019-11-29] MEDS ORDERED: HYDR1CAP25 PO (21:21)
[2019-11-29] MEDS ORDERED: MIRE1IUD IU (21:21)
[2019-11-29] MEDS ORDERED: REXU1TAB4 PO (21:21)
[2019-11-29 23:26] VITALS: BP 122/64
== END 2019-11-29 23:27 | disposition home or self-care (01) ==
LOC: M ED 21:02
DX: R10.2 Pelvic and perineal pain (principal); N89.8 Other specified noninflammatory disorders of vagina; I10 Essential (primary) hypertension; E28.2 Polycystic ovarian syndrome; M54.5 Low back pain; F41.9 Anxiety disorder, unspecified; F33.9 Major depressive disorder, recurrent, unspecified; F17.200 Nicotine dependence, unspecified, uncomplicated; Z88.1 Allergy status to other antibiotic agents; Z88.2 Allergy status to sulfonamides; Z79.899 Other long term (current) drug therapy

== ENCOUNTER → 2020-01-01 | Outpatient (CLI) | payer OTHER ==
[~2020-01-01] MED LIST changes: +HYDR1CAP25 PO; +MIRE1IUD IU; +REXU1TAB4 PO
--- NOTE | 2020-01-06 06:33 | ECWPNPC ---
PATIENT NAME: MARTÍN GILLIS : 1990 GENDER: FEMALE VISIT DATE: 01/01/2020 DISCHARGE DATE: 01/01/20 1029 VISIT LOCKED DATE TIME: PHYSICIAN: AURELIO PICHARDO RESOURCE: AURELIO PICHARDO REASON FOR APPOINTMENT 1. MED MGMT HISTORY OF PRESENT ILLNESS DEPRESSION SCREENING: PHQ-9 LITTLE INTEREST OR PLEASURE IN DOING THINGSNEARLY EVERY DAY FEELING DOWN, DEPRESSED, OR HOPELESSMORE THAN HALF THE DAYS TROUBLE FALLING OR STAYING ASLEEP, OR SLEEPING TOO MUCHNEARLY EVERY DAY FEELING TIRED OR HAVING LITTLE ENERGYNEARLY EVERY DAY POOR APPETITE OR OVEREATING NEARLY EVERY DAY FEELING BAD ABOUT YOURSELF-OR THAT YOU ARE A FAILURE OR HAVE LET YOURSELF OR YOUR FAMILY DOWN SEVERAL DAYS TROUBLE CONCENTRATING ON THINGS, SUCH READING THE NEWSPAPER OR WATCHING TELEVISION SEVERAL DAYS MOVING OR SPEAKING SO SLOWLY THAT OTHER PEOPLE COULD HAVE NOTICED. 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 CURRENTLY USING TRAMADOL 50 MG EVERY 4-6 HOURS NEEDED FOR SEVERE PAIN EPISODES. FINDS MEDICATION SOMEWHAT HELPFUL AT REDUCING HER PAIN. DOES REPORT FEELING DEPRESSED. SHE SEES A COUNSELOR ON A REGULAR BASIS. DENIES SUICIDAL OR HOMICIDAL IDEATIONS. STATES PSYCHIATRISTS IS AWARE OF HER INCREASED DEPRESSION AND ANXIETY OF RECENT. -. FALL RISK SCREENING: SCREENING :NO FALLS REPORTED IN THE LAST YEAR PAIN SCREENING: PATIENT HAS A COMPLAINT OF ACUTE OR CHRONIC PAIN :YES LOCATION OF PAIN:LOW BACK INTENSITY OF PAIN (SCALE OF 1 TO 10):6 WHAT DOES YOUR PAIN FEEL LIKE:ACHING DURATION:CONTINOUS PAIN IS INCREASED BY:PROLONGED STANDING, ACTIVITIES PAIN IS DECREASED BY:SITTING, USE OF PAIN MEDICATIONS NURSING NOTE: -. PAIN CENTER INTAKE QUESTIONS: DO YOU HAVE A HISTORY OF MRSA? :NO DO YOU TAKE A BLOOD THINNERS? :NO DO YOU HAVE ANY BLEEDING DISORDERS? :NO ANY NEW NUMBNESS OR WEAKNESS IN YOUR LEGS OR ARMS? :NO ANY PACEMAKER,DEFIBRILLATOR, OR DORSAL COLUMN STIMULATOR? :NO DO YOU HAVE ANY RASHES OR OPEN SORES? :NO ARE YOU ALLERGIC TO IV DYE? :NO ARE YOU DIABETIC? :NO ANY NEW PROBLEMS WITH YOUR MEDICATIONS? :NO HAVE YOU RECEIVED A VACCINE IN THE PAST 30 DAYS? :YES IF SO WHAT VACCINE AND WHEN? INFLUENZA VACCINE 5 DAYS AGO DO YOU PLAN TO RECEIVE A VACCINE IN THE NEXT 21 DAYS? :NO DO YOU NEED ANY PRESCRIPTION? :NO UNSURE DO YOU TAKE ANY IMMUNOSUPPRESSIVE MEDICATIONS? :NO IS THERE A CHANCE YOU COULD BE ? :NO ARE YOU BREAST FEEDING? :NO CURRENT MEDICATIONS TAKING IBUPROFEN 200 MG TABLET 4 TABLETS ORALLY TWICE A DAY PRN TAKING TRAZODONE HCL 100 MG TABLET 1 TABLET AT BEDTIME NEEDED ORALLY ONCE A DAY TAKING LAMICTAL 200 MG TABLET 1 TABLET ORALLY ONCE A DAY TAKING TRAMADOL HCL 50 MG TABLET 1-2 TAB ORALLY Q8H PRN MDD6 TAKING REXULTI 2 MG TABLET 1 TABLET ORALLY ONCE A DAY TAKING HYDROXYZINE HCL 25 MG TABLET 1 TABLET DISRECTED ORALLY TAKING MIRTAZAPINE 7.5 MG TABLET 1 TABLET AT BEDTIME ORALLY ONCE A DAY TAKING MIRENA (52 MG) 20 MCG/24HR INTRAUTERINE DEVICE DIRECTED INTRAUTERINE NOT-TAKING BUSPIRONE HCL 10 MG TABLET 2 TABLETS ORALLY TWICE A DAY NOT-TAKING CETIRIZINE HCL 10 MG TABLET 1 TABLET ORALLY ONCE A DAY NOT-TAKING SPIRONOLACTONE 50 MG TABLET 1 TABLET ORALLY DAILY NOT-TAKING ABILIFY 2 MG TABLET 1 TABLET ORALLY ONCE A DAY NOT-TAKING TOPAMAX 25 MG TABLET 1 TABLET ORALLY TWICE A DAY NOT-TAKING ALPRAZOLAM 0.25 MG TABLET 1 TABLET ORALLY TID PRN NOT-TAKING ZZZQUIL 50 MG/30ML LIQUID ORALLY BEFORE BEDTIME NOT-TAKING MULTI FOR HER - TABLET ORALLY NOT-TAKING LEXAPRO 10 MG TABLET 1 TABLET ORALLY ONCE A DAY NOT-TAKING ADVIL PM 200-38 MG TABLET 2 TABLETS AT BEDTIME NEEDED ORALLY ONCE A DAY NOT-TAKING CYMBALTA 20 MG CAPSULE DELAYED RELEASE PARTICLES 2 CAPSULE ORALLY ONCE A DAY NOT-TAKING GABAPENTIN 100 MG CAPSULE 1 CAPSULE ORALLY BID NOT-TAKING PREVIFEM 0.25-35 MG-MCG TABLET 1 TABLET ORALLY ONCE A DAY NOT-TAKING RIBOFLAVIN 25 MG TABLET 1 TABLET WITH A MEAL ORALLY ONCE A DAY NOT-TAKING IMITREX 100 MG TABLET 1 TABLET NEEDED ORALLY TWICE A DAY NOT-TAKING LIDOCAINE HCL JELLY FDC 2 % JELLY 1 APPLICATION TO AFFECTED AREA NEEDED INTRAVESICALLY PRIOR TO PROCEDURE NOT-TAKING PERCOCET 5-325 MG TABLET 1 TABLET NEEDED ORALLY Q8H PRN MDD3 NOT-TAKING CIPRO 500 MG TABLET 1 TABLET ORALLY DIRECTED NOT-TAKING SOMA 350 MG TABLET 1 TABLET NEEDED ORALLY BEFORE BEDTIME PRN MDD1 NOT-TAKING ORSYTHIA 0.1-20 MG-MCG TABLET ORALLY NOT-TAKING ROBAXIN 500 MG TABLET 1 ORALLY Q8H PRN MDD3 NOT-TAKING MELOXICAM 7.5 MG TABLET 1 CAP ORALLY DAILY MEDICATION LIST REVIEWED AND RECONCILED WITH THE PATIENT PAST MEDICAL HISTORY KIDNEY STONES GERD HYPERTENSION WHILE PREG. ABNORMAL EKG'S --SEES [facility] MEDULARY SPONGE KIDNEY ANXIETY DEPRESSION ALLERGIES BACTRIM: PERSONALITY CHANGE - ALLERGY CEFZIL: HIVES - ALLERGY SURGICAL HISTORY TYMPANOSTOMY TUBE INSERTION 1992 ARTHROSCOPIC ANKLE SURGERY RIGHT 2007 UPPER ENDOSCOPY 2011 CHOLECYSTECTOMY 2012 APPENDECTOMY 2012 LUMBAR LAMINECTOMY 02/21/15 RIGHT KNEE SURGERY 12/2017 TONSILLECTOMY AND TUBES IN EARS 10/2019 FAMILY HISTORY FATHER: 44 YRS, DIAGNOSED WITH UNSPECIFIED HEART DISEASE, HYPERTENSION MOTHER: ALIVE, OTHER SPECIFIED CONDITIONS INFLUENCING HEALTH STATUS SIBLINGS: ALIVE 1 BROTHER(S) - HEALTHY. 1 SON(S) - HEALTHY. MOM--SKIN CANCER AND BACK PROBLEMS. SOCIAL HISTORY GENERAL: TOBACCO USE ARE YOU A:CURRENT SMOKER HOW SOON AFTER YOU WAKE UP DO YOU SMOKE YOUR FIRST CIGARETTE?6-30 MIN HOW MANY CIGARETTES A DAY DO YOU SMOKE?11-20 ARE YOU INTERESTED IN QUITTING?NOT READY TO QUIT PATIENT COUNSELED ON THE DANGERS OF TOBACCO USE AND URGED TO QUIT:04/21/2019 COUNSELED THE PATIENT ON SMOKING EFFECTS, EDUCATION [id number]/14/2020 SMOKING CESSATION INFORMATION GIVEN10/21/2018 LATEX QUESTIONNAIRE LATEX ALLERGY : HAVE YOU EVER DEVELOPED ANY TYPE OF REACTION AFTER HANDLING LATEX PRODUCTS SUCH RUBBER GLOVES, CONDOMS, DIAPHRAGMS, BALLOONS, SOCKS, OR UNDERWEAR?NO LATEX ALLERGY : HAVE YOU EVER DEVELOPED ANY TYPE OF REACTION DURING OR AFTER DENTAL APPOINTMENT, VAGINAL/RECTAL EXAMINATION, SURGICAL PROCEDURE, OR ANY OTHER EXPOSURE?NO DATE ASKED : 04/21/2019 LATEX RISK : HAVE YOU EVER HAD ANY DIFFICULTY BREATHING OR HIVES AFTER EATING OR HANDLING ANY FRUITS, OR VEGETABLES; SUCH KIWI, BANANAS, STONE FRUITS, OR CHESTNUTSYES - PLEASE INDICATE : BANANAS STOMACH CRAMPS WHEN EATING BANANAS. LATEX RISK : DO YOU HAVE A PREVIOUS PERSONAL HISTORY OF MORE THAN NINE SURGERIES, SPINA BIFIDA, OR REPEATED CATHERIZATIONS? NO LATEX RISK : ARE YOU FREQUENTLY EXPOSED TO LATEX PRODUCTS IN YOUR OCCUPATION?NO ALCOHOL SCREENING DID YOU HAVE A DRINK CONTAINING ALCOHOL IN THE PAST YEAR?NO POINTS0 INTERPRETATIONNEGATIVE RECREATIONAL DRUG USE DENIES. CAFFEINE 2-5/DAY. SEXUAL HX HAD SEX IN THE LAST 12 MONTHS (VAGINAL, ORAL, OR ANAL)?NO HAVE YOU EVER HAD AN STD?NO QUAKER NO YAZDANISM BELIEFS THAT WOULD IMPACT HEALTH CARE. LANGUAGE TUVALUAN. EDUCATION SOME COLLEGE PLAN OF CARE FOR PAIN CENTER REVIEWED WITH PAT. AND SHE VERBALIZED UNDERSTANDING.. LEARNING BARRIERS / SPECIAL NEEDS BARRIERS TO LEARNING?NO HEARING IMPAIRED?NO VISION IMPAIRED?YES COGNITIVELY IMPAIRED?NO :CORRECTIVE LENSES READINESS TO LEARN?YES LEARNING PREFERENCES?YES :DEMONSTRATION/VERBAL INSTRUCTION LEARNING CAPABILITIES PRESENT?NO EMOTIONAL BARRIERS?NO DOMESTIC VIOLENCE NONE. OCCUPATION: UNEMPLOYED. DIET: REGULAR. EXERCISE: WALKS. MARITAL STATUS: SINGLE. OTHERS AT HOME: MOTHER, OTHER NON-RELATIVE, CHILD. TODAY'S VISIT 07/19/2019 PATIENT DESCRIBES PAIN :ACHING, HAVE IT ALL THE TIME, SHARP FROM 0-10, WHAT LEVEL IS YOUR PAIN TODAY?7 PRECIPITATING FACTORS PROLONGED STANDING OR WALKING, SITTING, OR HEAVY LIFTING ALLEVIATING FACTORS CHANGING POSITIONS, HEATING PAD PAIN CLINIC PFS, CLERGY, PUBLIC HEALTH REFERRALS PFS REFERRAL NEEDED?NO CLERGY REFERRAL NEEDED?NO PUBLIC HEALTH REFERRAL NEEDED?NO WAS THE PROVIDER NOTIFIED OF ANY PERTINENT INFO?YES HAS THE PATIENT BEEN EDUCATED REGARDING HIS/HER PLAN OF CARE?YES HAS THE PATIENT BEEN EDUCATED REGARDING PAIN, THE RISK FOR PAIN, THE IMPORTANCE OF EFFECTIVE PAIN MANAGEMENT, AND THE PAIN ASSESSMENT PROCESS?YES ADVANCE DIRECTIVE ADVANCE DIRECTIVE DISCUSSED WITH PATIENT:YES 04/21/2019 PATIENT HAS NO ADVANCED DIRECTIVES, DECLINED INFORMATION AT THIS TIME. JS REVIEWED WITH PATIENT 10/21/18 NLJREVIEWED WITH PATIENT 04/21/2019 1344 JS. HOSPITALIZATION/MAJOR DIAGNOSTIC PROCEDURE SURGERY RELATED CHILDBIRTH REVIEW OF SYSTEMS REVIEWED BY: PROVIDER: AURELIO ESQUIVEL . CONSTITUTIONAL: ANY CHANGE IN YOUR MEDICAL CONDITION? NO . CHILLS NO . FEVER NO . INFECTION: DO YOU HAVE NEW INFECTIONS? NO . DO YOU HAVE HISTORY OF MRSA? NO . MUSCULOSKELETAL: ANY UNUSUAL JOINT PAIN OR SWELLING NOT MENTIONED YES OCCASIONAL SCIATIC PAIN . GASTROENTEROLOGY: ANY NEW CHANGE IN BOWEL CONTROL? NO . GENITOURINARY: ANY NEW CHANGE IN BLADDER CONTROL? NO . IS THERE A CHANCE YOU COULD BE ? NO . HEMATOLOGY/LYMPH: DO YOU TAKE ANY BLOOD THINNERS? (FOR EXAMPLE- COUMADIN, PLAVIX, AGGRENOX, PLATEL, PRADAXA, OR XARELTO) NO . WHEN WAS YOUR LAST DOSE? DATE: TIME: . NEUROLOGY: HAVE YOU FALLEN IN THE PAST 12 MONTHS? NO . OTHER NEW NUMBNESS OR PAIN PATTERNS NOT MENTIONED NO . CARDIOLOGY: DO YOU HAVE A PACEMAKER OR DEFIBRILLATOR? NO . RESPIRATORY: HAVE YOU BEEN SICK IN THE PAST WEEK? NO . FEVER NO . FLU LIKE SYMPTOMS? NO . COUGH NO . INTEGUMENTARY: DO YOU HAVE ANY RASHES OR OPEN SORES? NO . ALLERGIC/IMMUNO: ARE YOU ALLERGIC TO IV DYE? NO . ANY NEW ALLERGIES? NO . PSYCHIATRIC: DO YOU HAVE THOUGHTS OF HURTING YOURSELF OR SOMEONE ELSE? NO . ARE YOU ABUSED, NEGLECTED, OR IN AN UNSAFE ENVIRONMENT? NO . ENDOCRINOLOGY: ARE YOU DIABETIC? NO . OTHER: DO YOU NEED ANY PRESCRIPTIONS? YES TRAMADOL . IF YES, PLEASE LIST: ____ . ANY NEW PROBLEMS WITH YOUR MEDICATIONS? NO . WHEN DID YOU LAST EAT? ____ . WHEN DID YOU LAST DRINK? ____ . WHAT DID YOU LAST DRINK? ____ . NAME OF PERSON DRIVING YOU HOME? ____ . DO YOU HAVE ANY OTHER QUESTIONS OR CONCERNS NO . VITAL SIGNS WT 183.4 LBS, HT 5'5", BMI 30.52 INDEX, BP 120/72 MM HG, HR 86 /MIN, RR 16 /MIN, TEMP 96.1 F, OXYGEN SAT % 97%, NA INITIALS SC 09:50. EXAMINATION GENERAL EXAMINATION: GENERALAWAKE,ALERT ,PLEAASANT . PSYCHAFFECT NORMAL . LUNGS:LUNG HDZ ARE CLEAR TO AUSCULTATION BILATERALLY. GOOD MOVEMENT OF AIR . HEART:S1, S2 IN A REGULAR RATE AND RHYTHM. NO SIGNIFICANT MURMURS, RUBS OR GALLOPS NOTED . ASSESSMENTS POST LAMINECTOMY SYNDROME - M96.1 (PRIMARY) TREATMENT POST LAMINECTOMY SYNDROME CONTINUE TRAMADOL HCL TABLET, 50 MG, 1-2 TAB, ORALLY, Q8H PRN MDD6 NOTES: CONTINUE HOME EXCSERSISE AND STRETCHING , ISTOP REGISTRY REVIEWED AND DEMONSTRATES COMPLLIANCE. RECENT URINE TOXICOLOGY REVIEWED. NO UNAUTHORIZED MEDICATIONS. NO ILLICIT SUBSTANCES AND PRESCRIBED MEDICATIONS WERE PRESENT. URINE TOX TODAY. PROCEDURE CODES FA211 ESTABILISHED PATIENT [facility] FACILITY CHARGE DISPOSITION & COMMUNICATION FOLLOW UP 3 MONTHS (REASON: MED MGMNT POST LAMINECTOMY PAIN SYNDROME) ELECTRONICALLY SIGNED BY ALVIN RIVERS ON 01/05/2020 AT 02:57 PM EDT DISCLAIMER : THIS IS A VISIT SUMMARY EXTRACTED FROM THE [facility] CHART. IT IS NOT A COPY OF THE [facility] PROGRESS NOTE. THAI
== END ==
LOC: M PAIN 09:15
PROVIDERS: ATTEND Nurse Practitioner Family
DX: M96.1 Postlaminectomy syndrome, not elsewhere classified (principal); K21.9 Gastro-esophageal reflux disease without esophagitis; F41.9 Anxiety disorder, unspecified; F32.9 Major depressive disorder, single episode, unspecified; F17.210 Nicotine dependence, cigarettes, uncomplicated; Z79.891 Long term (current) use of opiate analgesic; Z79.899 Other long term (current) drug therapy; Z88.2 Allergy status to sulfonamides; Z88.8 Allergy status to other drugs, medicaments and biological substances

== ENCOUNTER → 2020-04-01 | Outpatient (CLI) | payer OTHER ==
--- NOTE | 2020-04-03 04:36 | ECWPNPC ---
PATIENT NAME: MARTÍN GILLIS : 1990 GENDER: FEMALE VISIT DATE: 04/01/2020 DISCHARGE DATE: 04/01/2058 VISIT LOCKED DATE TIME: PHYSICIAN: AURELIO PICHARDO RESOURCE: AURELIO PICHARDO REASON FOR APPOINTMENT 1. MED MGMNT POST LAMINECTOMY PAIN SYNDROME HISTORY OF PRESENT ILLNESS GENERAL: HERE FOR FOLLOW-UP OF CHRONIC LOW BACK PAIN WITH A HISTORY OF POSTLAMINECTOMY PAIN SYNDROME. REPORTING SIGNIFICANT INCREASES IN HER LOW BACK PAIN OVER THE PAST FEW MONTHS. REPORTING WEAKNESS IN HER LOWER EXTREMITIES WHEN SHE IS EXERTING HERSELF I.E. LIFTING. SHE IS NOT INTERESTED IN DOING ANY INJECTIONS. SHE WOULD BE WILLING TO TALK TO A SURGEON. NO RECENT MRI IMAGING. DENIES BOWEL OR BLADDER INCONTINENCE. -. FALL RISK SCREENING: SCREENING :NO FALLS REPORTED IN THE LAST YEAR PAIN SCREENING: PATIENT HAS A COMPLAINT OF ACUTE OR CHRONIC PAIN :YES LOCATION OF PAIN:MID BACK INTENSITY OF PAIN (SCALE OF 1 TO 10):7 WHAT DOES YOUR PAIN FEEL LIKE:ACHING, SHARP DURATION:CONSTANT, AWAKENS FROM SLEEP PAIN IS INCREASED BY:ACTIVITIES ANY PROLONGED POSITIONS, ACTIVITY IN GENERAL PAIN IS DECREASED BY:USE OF PAIN MEDICATIONS NURSING NOTE: -. PAIN CENTER INTAKE QUESTIONS: DO YOU HAVE A HISTORY OF MRSA? :NO DO YOU TAKE A BLOOD THINNERS? :NO DO YOU HAVE ANY BLEEDING DISORDERS? :NO ANY NEW NUMBNESS OR WEAKNESS IN YOUR LEGS OR ARMS? :NO ANY PACEMAKER,DEFIBRILLATOR, OR DORSAL COLUMN STIMULATOR? :NO DO YOU HAVE ANY RASHES OR OPEN SORES? :NO ARE YOU ALLERGIC TO IV DYE? :NO ARE YOU DIABETIC? :NO ANY NEW PROBLEMS WITH YOUR MEDICATIONS? :NO HAVE YOU RECEIVED A VACCINE IN THE PAST 30 DAYS? :NO DO YOU PLAN TO RECEIVE A VACCINE IN THE NEXT 21 DAYS? :NO IF OFFERED COVID VACCINE DO YOU NEED ANY PRESCRIPTION? :YES TRAMADOL DO YOU TAKE ANY IMMUNOSUPPRESSIVE MEDICATIONS? :NO IS THERE A CHANCE YOU COULD BE ? :NO ARE YOU BREAST FEEDING? :NO CURRENT MEDICATIONS TAKING IBUPROFEN 200 MG TABLET 4 TABLETS ORALLY TWICE A DAY PRN TAKING LAMICTAL 200 MG TABLET 1 TABLET ORALLY ONCE A DAY TAKING HYDROXYZINE HCL 25 MG TABLET 1 TABLET DISRECTED ORALLY TAKING TRAMADOL HCL 50 MG TABLET 1-2 TAB ORALLY Q8H PRN MDD6 TAKING VRAYLAR 3 MG CAPSULE 1 CAPSULE ORALLY ONCE A DAY TAKING MELATONIN 5 MG TABLET 2 TABLET IN THE EVENING ORALLY ONCE A DAY NOT-TAKING TRAZODONE HCL 100 MG TABLET 1 TABLET AT BEDTIME NEEDED ORALLY ONCE A DAY NOT-TAKING REXULTI 2 MG TABLET 1 TABLET ORALLY ONCE A DAY NOT-TAKING MIRTAZAPINE 7.5 MG TABLET 1 TABLET AT BEDTIME ORALLY ONCE A DAY NOT-TAKING MIRENA (52 MG) 20 MCG/24HR INTRAUTERINE DEVICE DIRECTED INTRAUTERINE NOT-TAKING BUSPIRONE HCL 10 MG TABLET 2 TABLETS ORALLY TWICE A DAY NOT-TAKING CETIRIZINE HCL 10 MG TABLET 1 TABLET ORALLY ONCE A DAY NOT-TAKING SPIRONOLACTONE 50 MG TABLET 1 TABLET ORALLY DAILY NOT-TAKING ABILIFY 2 MG TABLET 1 TABLET ORALLY ONCE A DAY NOT-TAKING TOPAMAX 25 MG TABLET 1 TABLET ORALLY TWICE A DAY NOT-TAKING ALPRAZOLAM 0.25 MG TABLET 1 TABLET ORALLY TID PRN NOT-TAKING ZZZQUIL 50 MG/30ML LIQUID ORALLY BEFORE BEDTIME NOT-TAKING MULTI FOR HER - TABLET ORALLY NOT-TAKING LEXAPRO 10 MG TABLET 1 TABLET ORALLY ONCE A DAY NOT-TAKING ADVIL PM 200-38 MG TABLET 2 TABLETS AT BEDTIME NEEDED ORALLY ONCE A DAY NOT-TAKING CYMBALTA 20 MG CAPSULE DELAYED RELEASE PARTICLES 2 CAPSULE ORALLY ONCE A DAY NOT-TAKING GABAPENTIN 100 MG CAPSULE 1 CAPSULE ORALLY BID NOT-TAKING PREVIFEM 0.25-35 MG-MCG TABLET 1 TABLET ORALLY ONCE A DAY NOT-TAKING RIBOFLAVIN 25 MG TABLET 1 TABLET WITH A MEAL ORALLY ONCE A DAY NOT-TAKING IMITREX 100 MG TABLET 1 TABLET NEEDED ORALLY TWICE A DAY NOT-TAKING LIDOCAINE HCL JELLY ASSISTED 2 % JELLY 1 APPLICATION TO AFFECTED AREA NEEDED INTRAVESICALLY PRIOR TO PROCEDURE NOT-TAKING PERCOCET 5-325 MG TABLET 1 TABLET NEEDED ORALLY Q8H PRN MDD3 NOT-TAKING CIPRO 500 MG TABLET 1 TABLET ORALLY DIRECTED NOT-TAKING SOMA 350 MG TABLET 1 TABLET NEEDED ORALLY BEFORE BEDTIME PRN MDD1 NOT-TAKING ORSYTHIA 0.1-20 MG-MCG TABLET ORALLY NOT-TAKING ROBAXIN 500 MG TABLET 1 ORALLY Q8H PRN MDD3 NOT-TAKING MELOXICAM 7.5 MG TABLET 1 CAP ORALLY DAILY MEDICATION LIST REVIEWED AND RECONCILED WITH THE PATIENT PAST MEDICAL HISTORY KIDNEY STONES GERD HYPERTENSION WHILE PREG. ABNORMAL EKG'S --SEES [facility]. MEDULARY SPONGE KIDNEY ANXIETY DEPRESSION ALLERGIES BACTRIM: PERSONALITY CHANGE - ALLERGY CEFZIL: HIVES - ALLERGY SURGICAL HISTORY TYMPANOSTOMY TUBE INSERTION 1993 ARTHROSCOPIC ANKLE SURGERY RIGHT 2007 UPPER ENDOSCOPY 2012 CHOLECYSTECTOMY 2013 APPENDECTOMY 2013 LUMBAR LAMINECTOMY 02/21/15 RIGHT KNEE SURGERY 12/2017 TONSILLECTOMY AND TUBES IN EARS 10/2019 SOCIAL HISTORY GENERAL: TOBACCO USE ARE YOU A:CURRENT SMOKER ARE YOU INTERESTED IN QUITTING?NOT READY TO QUIT COUNSELED THE PATIENT ON SMOKING EFFECTS, EDUCATION [id number]/25/2021 HOW MANY CIGARETTES A DAY DO YOU SMOKE?11-20 HOW SOON AFTER YOU WAKE UP DO YOU SMOKE YOUR FIRST CIGARETTE?WITHIN 5 MIN HOW OFTEN DO YOU SMOKE CIGARETTES?EVERY DAY PATIENT COUNSELED ON THE DANGERS OF TOBACCO USE AND URGED TO QUIT:04/01/2020 SMOKING CESSATION INFORMATION GIVEN04/01/2020 VAPORYES E-CIGARETTENO LATEX QUESTIONNAIRE LATEX ALLERGY : HAVE YOU EVER DEVELOPED ANY TYPE OF REACTION AFTER HANDLING LATEX PRODUCTS SUCH RUBBER GLOVES, CONDOMS, DIAPHRAGMS, BALLOONS, SOCKS, OR UNDERWEAR?NO LATEX ALLERGY : HAVE YOU EVER DEVELOPED ANY TYPE OF REACTION DURING OR AFTER DENTAL APPOINTMENT, VAGINAL/RECTAL EXAMINATION, SURGICAL PROCEDURE, OR ANY OTHER EXPOSURE?NO LATEX RISK : HAVE YOU EVER HAD ANY DIFFICULTY BREATHING OR HIVES AFTER EATING OR HANDLING ANY FRUITS, OR VEGETABLES; SUCH KIWI, BANANAS, STONE FRUITS, OR CHESTNUTSYES - PLEASE INDICATE : BANANAS STOMACH CRAMPS WHEN EATING BANANAS. LATEX RISK : DO YOU HAVE A PREVIOUS PERSONAL HISTORY OF MORE THAN NINE SURGERIES, SPINA BIFIDA, OR REPEATED CATHERIZATIONS? NO LATEX RISK : ARE YOU FREQUENTLY EXPOSED TO LATEX PRODUCTS IN YOUR OCCUPATION?NO DATE ASKED : 04/01/2020 ALCOHOL USE: NO. ALCOHOL SCREENING DID YOU HAVE A DRINK CONTAINING ALCOHOL IN THE PAST YEAR?NO POINTS0 INTERPRETATIONNEGATIVE RECREATIONAL DRUG USE DRUG USE?NO CAFFEINE 2-5/DAY. SEXUAL HX HAD SEX IN THE LAST 12 MONTHS (VAGINAL, ORAL, OR ANAL)?NO HAVE YOU EVER HAD AN STD?NO TAOISM NO BAHAI BELIEFS THAT WOULD IMPACT HEALTH CARE. LANGUAGE BENGALI. EDUCATION SOME COLLEGE PLAN OF CARE FOR PAIN CENTER REVIEWED WITH PAT. AND SHE VERBALIZED UNDERSTANDING.. LEARNING BARRIERS / SPECIAL NEEDS CHANGE FROM LAST VISIT?NO BARRIERS TO LEARNING?NO HEARING IMPAIRED?NO VISION IMPAIRED?YES :CORRECTIVE LENSES COGNITIVELY IMPAIRED?NO READINESS TO LEARN?YES LEARNING PREFERENCES?YES :DEMONSTRATION/VERBAL INSTRUCTION LEARNING CAPABILITIES PRESENT?NO EMOTIONAL BARRIERS?NO SPECIAL DEVICES?NO OCCUPATION: UNEMPLOYED. DIET: REGULAR. EXERCISE: WALKS. MARITAL STATUS: SINGLE. OTHERS AT HOME: MOTHER, OTHER NON-RELATIVE, CHILD. TODAY'S VISIT 07/19/2019 PATIENT DESCRIBES PAIN :ACHING, HAVE IT ALL THE TIME, SHARP FROM 0-10, WHAT LEVEL IS YOUR PAIN TODAY?7 PRECIPITATING FACTORS PROLONGED STANDING OR WALKING, SITTING, OR HEAVY LIFTING ALLEVIATING FACTORS CHANGING POSITIONS, HEATING PAD REVIEWED WITH PATIENT 10/21/18 NLJREVIEWED WITH PATIENT 04/21/2019 1344 JS. HOSPITALIZATION/MAJOR DIAGNOSTIC PROCEDURE SURGERY RELATED CHILDBIRTH REVIEW OF SYSTEMS CONSTITUTIONAL: ANY RECENT FEVER NO . CHILLS NO . WEIGHT CHANGE OF UNKNOWN REASONS NO . GASTROENTEROLOGY: NEW UNEXPLAINABLE CHANGES IN BOWEL CONTROL NO . CONSTIPATION NO . GENITOURINARY: ANY NEW CHANGE IN BLADDER CONTROL? NO . NEUROLOGY: NEW ONSET DIZZINESS OR NEUROLOGICAL CHANGES NOT MENTIONED NO . NEW NUMBNESS OR PAIN PATTERNS NOT MENTIONED AND PERTINENT TO TODAY'S VISIT NO . CARDIOLOGY: NEW CHEST PRESSURE NO . NEW CHEST PAIN NO . RESPIRATORY: UNEXPLAINABLE COUGH NO . NEW SHORTNESS OF BREATH NO . VITAL SIGNS WT 190 LBS, HT 5'5", BMI 31.61 INDEX, BP 131/70 MM HG, HR 93 /MIN, RR 18 /MIN, TEMP 97.5 F, OXYGEN SAT % 98, SAFE IN ENV? (Y/N) YES, REVIEWED BY: [facility]. SHONDA RN. EXAMINATION GENERAL EXAMINATION: GENERALNO ACUTE DISTRESS, WELL NOURISHED AND HYDRATED. PSYCHAPPROPRIATE MOOD AND AFFECT . LUNGS:CLEAR TO AUSCULTATION BILATERALLY, NO WHEEZES, RHONCHI, RALES. HEART:NO MURMURS, REGULAR RATE AND RHYTHM. LUMBAR:TENDERNESS NOTED OVER L/S AXIS. WELL-HEALED SURGICAL SCAR L/S AXIS. . ASSESSMENTS POST LAMINECTOMY SYNDROME - M96.1 (PRIMARY) TREATMENT POST LAMINECTOMY SYNDROME REFILL TRAMADOL HCL TABLET, 50 MG, 1-2 TAB, ORALLY, Q8H PRN MDD6, 30 DAYS, 180, REFILLS [address] MRI LS SPINE W/O AND WITH [id number] NOTES: DUE TO INCREASE IN LOW BACK PAIN WITH NEW ONSET OF LUMBAR RADICULOPATHY IT IS MEDICALLY NECESSARY TO ORDER MRI OF LS-SPINE. WE WILL REVIEW THIS AT HER FOLLOW-UP AND CONSIDER REFERRAL TO ORTHOPEDIC SURGEON IF NECESSARY. PROCEDURE CODES FA211 ESTABILISHED PATIENT [facility] FACILITY CHARGE DISPOSITION & COMMUNICATION FOLLOW UP 3 MONTHS (REASON: REVIEW MRI L/S SPINE/URINE TOXICOLOGY) ELECTRONICALLY SIGNED BY ALVIN RIVERS ON 04/02/2020 AT 01:21 PM EST DISCLAIMER : THIS IS A VISIT SUMMARY EXTRACTED FROM THE [facility] CHART. IT IS NOT A COPY OF THE [facility] PROGRESS NOTE. THAI
== END ==
LOC: M PAIN 09:30
PROVIDERS: ATTEND Nurse Practitioner Family
DX: M96.1 Postlaminectomy syndrome, not elsewhere classified (principal); K21.9 Gastro-esophageal reflux disease without esophagitis; F41.9 Anxiety disorder, unspecified; F32.9 Major depressive disorder, single episode, unspecified; Q61.5 Medullary cystic kidney; Z87.442 Personal history of urinary calculi; F17.210 Nicotine dependence, cigarettes, uncomplicated; Z79.891 Long term (current) use of opiate analgesic; Z79.899 Other long term (current) drug therapy

== ENCOUNTER → 2020-05-13 | Outpatient (CLI) | payer OTHER ==
--- NOTE | 2020-05-18 04:05 | ECWPNPC ---
PATIENT NAME: MARTÍN GILLIS : 1990 GENDER: FEMALE VISIT DATE: 05/13/2020 DISCHARGE DATE: 05/13/20 1036 VISIT LOCKED DATE TIME: PHYSICIAN: AURELIO PICHARDO RESOURCE: AURELIO PICHARDO REASON FOR APPOINTMENT 1. X-RAY REVIEW HISTORY OF PRESENT ILLNESS GENERAL: HERE FOR FOLLOW-UP OF CHRONIC LOW BACK PAIN WITH A HISTORY OF POSTLAMINECTOMY PAIN SYNDROME. HER PAIN HAS BEEN AGGRAVATED OVER THE PAST 3 MONTHS. X-RAY OF THE LUMBAR SPINE DONE ON 04/22/2020 IS REVIEWED. BASICALLY WITHIN NORMAL LIMITS. PATIENT CONTINUES TO BE VERY DEPRESSED AND CONCERNED ABOUT HER INCREASED PAIN AND INABILITY TO PARTICIPATE IN ACTIVITIES. SHE FOLLOWS CLOSELY WITH PSYCHIATRY. DENIES SUICIDAL OR HOMICIDAL IDEATIONS. DISCUSSED TREATMENT PLAN. TRAMADOL IS MINIMALLY EFFECTIVE.-. FALL RISK SCREENING: SCREENING : NO FALLS REPORTED IN THE LAST YEAR. PAIN SCREENING: PATIENT HAS A COMPLAINT OF ACUTE OR CHRONIC PAIN :YES LOCATION OF PAIN:LOW BACK INTENSITY OF PAIN (SCALE OF 1 TO 10):8 WHAT DOES YOUR PAIN FEEL LIKE:ACHING, THROBBING, SHOOTING DURATION:CONTINOUS, CONSTANT, ALL DAY PAIN IS INCREASED BY:ACTIVITIES PAIN IS DECREASED BY:USE OF PAIN MEDICATIONS NURSING NOTE: -. PAIN CENTER INTAKE QUESTIONS: DO YOU HAVE A HISTORY OF MRSA? :NO DO YOU TAKE A BLOOD THINNERS? :NO DO YOU HAVE ANY BLEEDING DISORDERS? :NO ANY NEW NUMBNESS OR WEAKNESS IN YOUR LEGS OR ARMS? :NO ANY PACEMAKER,DEFIBRILLATOR, OR DORSAL COLUMN STIMULATOR? :NO DO YOU HAVE ANY RASHES OR OPEN SORES? :NO ARE YOU ALLERGIC TO IV DYE? :NO ARE YOU DIABETIC? :NO ANY NEW PROBLEMS WITH YOUR MEDICATIONS? :NO HAVE YOU RECEIVED A VACCINE IN THE PAST 30 DAYS? :NO DO YOU PLAN TO RECEIVE A VACCINE IN THE NEXT 21 DAYS? :YES 1ST COVID 05/15/2020 DO YOU NEED ANY PRESCRIPTION? :NO DO YOU TAKE ANY IMMUNOSUPPRESSIVE MEDICATIONS? :NO IS THERE A CHANCE YOU COULD BE ? :NO ARE YOU BREAST FEEDING? :NO CURRENT MEDICATIONS TAKING IBUPROFEN 200 MG TABLET 4 TABLETS ORALLY TWICE A DAY PRN TAKING LAMICTAL 200 MG TABLET 1 TABLET ORALLY ONCE A DAY TAKING HYDROXYZINE HCL 50 MG/ML SOLUTION 1 TABLET DISRECTED INTRAMUSCULAR NEEDED TAKING VRAYLAR 3 MG CAPSULE 1 CAPSULE ORALLY ONCE A DAY TAKING MELATONIN 5 MG TABLET 2 TABLET IN THE EVENING ORALLY ONCE A DAY TAKING WELLBUTRIN SR 150 MG TABLET EXTENDED RELEASE DIRECTED ORALLY TAKING OXYBUTYNIN CHLORIDE 5 MG/5ML SYRUP 5 ML ORALLY TWICE A DAY TAKING MINOCYCLINE HCL 100 MG TABLET 1 TABLET ORALLY TWICE A DAY TAKING TRAMADOL HCL 50 MG TABLET 1-2 TAB ORALLY Q4-6HRS MDD6 NOT-TAKING TRAZODONE HCL 100 MG TABLET 1 TABLET AT BEDTIME NEEDED ORALLY ONCE A DAY NOT-TAKING REXULTI 2 MG TABLET 1 TABLET ORALLY ONCE A DAY NOT-TAKING MIRTAZAPINE 7.5 MG TABLET 1 TABLET AT BEDTIME ORALLY ONCE A DAY NOT-TAKING MIRENA (52 MG) 20 MCG/24HR INTRAUTERINE DEVICE DIRECTED INTRAUTERINE NOT-TAKING BUSPIRONE HCL 10 MG TABLET 2 TABLETS ORALLY TWICE A DAY NOT-TAKING CETIRIZINE HCL 10 MG TABLET 1 TABLET ORALLY ONCE A DAY NOT-TAKING SPIRONOLACTONE 50 MG TABLET 1 TABLET ORALLY DAILY NOT-TAKING ABILIFY 2 MG TABLET 1 TABLET ORALLY ONCE A DAY NOT-TAKING TOPAMAX 25 MG TABLET 1 TABLET ORALLY TWICE A DAY NOT-TAKING ALPRAZOLAM 0.25 MG TABLET 1 TABLET ORALLY TID PRN NOT-TAKING ZZZQUIL 50 MG/30ML LIQUID ORALLY BEFORE BEDTIME NOT-TAKING MULTI FOR HER - TABLET ORALLY NOT-TAKING LEXAPRO 10 MG TABLET 1 TABLET ORALLY ONCE A DAY NOT-TAKING ADVIL PM 200-38 MG TABLET 2 TABLETS AT BEDTIME NEEDED ORALLY ONCE A DAY NOT-TAKING CYMBALTA 20 MG CAPSULE DELAYED RELEASE PARTICLES 2 CAPSULE ORALLY ONCE A DAY NOT-TAKING GABAPENTIN 100 MG CAPSULE 1 CAPSULE ORALLY BID NOT-TAKING PREVIFEM 0.25-35 MG-MCG TABLET 1 TABLET ORALLY ONCE A DAY NOT-TAKING RIBOFLAVIN 25 MG TABLET 1 TABLET WITH A MEAL ORALLY ONCE A DAY NOT-TAKING IMITREX 100 MG TABLET 1 TABLET NEEDED ORALLY TWICE A DAY NOT-TAKING LIDOCAINE HCL JELLY CORRECTION 2 % JELLY 1 APPLICATION TO AFFECTED AREA NEEDED INTRAVESICALLY PRIOR TO PROCEDURE NOT-TAKING PERCOCET 5-325 MG TABLET 1 TABLET NEEDED ORALLY Q8H PRN MDD3 NOT-TAKING CIPRO 500 MG TABLET 1 TABLET ORALLY DIRECTED NOT-TAKING SOMA 350 MG TABLET 1 TABLET NEEDED ORALLY BEFORE BEDTIME PRN MDD1 NOT-TAKING ORSYTHIA 0.1-20 MG-MCG TABLET ORALLY NOT-TAKING ROBAXIN 500 MG TABLET 1 ORALLY Q8H PRN MDD3 NOT-TAKING MELOXICAM 7.5 MG TABLET 1 CAP ORALLY DAILY MEDICATION LIST REVIEWED AND RECONCILED WITH THE PATIENT PAST MEDICAL HISTORY KIDNEY STONES GERD HYPERTENSION WHILE PREG. ABNORMAL EKG'S --SEES [facility] MEDULARY SPONGE KIDNEY ANXIETY DEPRESSION INCONTINENCE ALLERGIES BACTRIM: PERSONALITY CHANGE - ALLERGY CEFZIL: HIVES - ALLERGY SOCIAL HISTORY GENERAL: TOBACCO USE ARE YOU A:CURRENT SMOKER HOW OFTEN DO YOU SMOKE CIGARETTES?EVERY DAY HOW SOON AFTER YOU WAKE UP DO YOU SMOKE YOUR FIRST CIGARETTE?WITHIN 5 MIN HOW MANY CIGARETTES A DAY DO YOU SMOKE?11-20 ARE YOU INTERESTED IN QUITTING?NOT READY TO QUIT PATIENT COUNSELED ON THE DANGERS OF TOBACCO USE AND URGED TO QUIT:04/01/2020 COUNSELED THE PATIENT ON SMOKING EFFECTS, EDUCATION [id number]/25/2021 [employer] E-CIGARETTENO SMOKING CESSATION INFORMATION GIVEN04/01/2020 LATEX QUESTIONNAIRE LATEX ALLERGY : HAVE YOU EVER DEVELOPED ANY TYPE OF REACTION AFTER HANDLING LATEX PRODUCTS SUCH RUBBER GLOVES, CONDOMS, DIAPHRAGMS, BALLOONS, SOCKS, OR UNDERWEAR?NO LATEX ALLERGY : HAVE YOU EVER DEVELOPED ANY TYPE OF REACTION DURING OR AFTER DENTAL APPOINTMENT, VAGINAL/RECTAL EXAMINATION, SURGICAL PROCEDURE, OR ANY OTHER EXPOSURE?NO LATEX RISK : HAVE YOU EVER HAD ANY DIFFICULTY BREATHING OR HIVES AFTER EATING OR HANDLING ANY FRUITS, OR VEGETABLES; SUCH KIWI, BANANAS, STONE FRUITS, OR CHESTNUTSYES - PLEASE INDICATE : BANANAS STOMACH CRAMPS WHEN EATING BANANAS. LATEX RISK : DO YOU HAVE A PREVIOUS PERSONAL HISTORY OF MORE THAN NINE SURGERIES, SPINA BIFIDA, OR REPEATED CATHERIZATIONS? NO LATEX RISK : ARE YOU FREQUENTLY EXPOSED TO LATEX PRODUCTS IN YOUR OCCUPATION?NO DATE ASKED : 05/13/2020 ALCOHOL USE: NO. ALCOHOL SCREENING DID YOU HAVE A DRINK CONTAINING ALCOHOL IN THE PAST YEAR?NO POINTS0 INTERPRETATIONNEGATIVE RECREATIONAL DRUG USE DRUG USE?NO CAFFEINE 2-5/DAY. SEXUAL HX HAD SEX IN THE LAST 12 MONTHS (VAGINAL, ORAL, OR ANAL)?NO HAVE YOU EVER HAD AN STD?NO EVANGELICAL NO MOSQUE BELIEFS THAT WOULD IMPACT HEALTH CARE. LANGUAGE KINYARWANDA. EDUCATION SOME COLLEGE PLAN OF CARE FOR PAIN CENTER REVIEWED WITH AND SHE VERBALIZED UNDERSTANDING.. LEARNING BARRIERS / SPECIAL NEEDS CHANGE FROM LAST VISIT?YES BARRIERS TO LEARNING?NO HEARING IMPAIRED?NO VISION IMPAIRED?YES :CORRECTIVE LENSES COGNITIVELY IMPAIRED?NO READINESS TO LEARN?YES LEARNING PREFERENCES?YES :DEMONSTRATION/VERBAL INSTRUCTION LEARNING CAPABILITIES PRESENT?NO EMOTIONAL BARRIERS?NO SPECIAL DEVICES?NO CARDIAC CATH RN NEEDED?NO OCCUPATION: UNEMPLOYED. DIET: REGULAR. EXERCISE: WALKS. MARITAL STATUS: SINGLE. OTHERS AT HOME: MOTHER, OTHER NON-RELATIVE, CHILD. TODAY'S VISIT 07/19/2019 PATIENT DESCRIBES PAIN :ACHING, HAVE IT ALL THE TIME, SHARP FROM 0-10, WHAT LEVEL IS YOUR PAIN TODAY?7 PRECIPITATING FACTORS PROLONGED STANDING OR WALKING, SITTING, OR HEAVY LIFTING ALLEVIATING FACTORS CHANGING POSITIONS, HEATING PAD REVIEWED WITH PATIENT 10/21/18 NLJREVIEWED WITH PATIENT 04/21/2019 1344 JS. REVIEW OF SYSTEMS CONSTITUTIONAL: ANY RECENT FEVER NO . CHILLS NO . WEIGHT CHANGE OF UNKNOWN REASONS NO . GASTROENTEROLOGY: NEW UNEXPLAINABLE CHANGES IN BOWEL CONTROL NO . CONSTIPATION NO . GENITOURINARY: ANY NEW CHANGE IN BLADDER CONTROL? NO . NEUROLOGY: NEW ONSET DIZZINESS OR NEUROLOGICAL CHANGES NOT MENTIONED NO . NEW NUMBNESS OR PAIN PATTERNS NOT MENTIONED AND PERTINENT TO TODAY'S VISIT NO . CARDIOLOGY: NEW CHEST PRESSURE NO . PATIENT DENIES NO . RESPIRATORY: UNEXPLAINABLE COUGH NO . NEW SHORTNESS OF BREATH NO . VITAL SIGNS WT 190 LBS, HT 5'5", BMI 31.61 INDEX, BP 119/73 MM HG, HR 90 /MIN, RR 18 /MIN, TEMP 97.6 F, OXYGEN SAT % 98%, SAFE IN ENV? (Y/N) YEST.MARY ANN NUNEZ. EXAMINATION GENERAL EXAMINATION: GENERALNO ACUTE DISTRESS, WELL NOURISHED AND HYDRATED. PSYCHAPPROPRIATE MOOD AND AFFECT . LUNGS:CLEAR TO AUSCULTATION BILATERALLY, NO WHEEZES, RHONCHI, RALES. HEART:NO MURMURS, REGULAR RATE AND RHYTHM. LUMBAR:TENDERNESS NOTED OVER L/S AXIS. WELL-HEALED SURGICAL SCAR L/S AXIS. . ASSESSMENTS POST LAMINECTOMY SYNDROME - M96.1 (PRIMARY) TREATMENT POST LAMINECTOMY SYNDROME CONTINUE TRAMADOL HCL TABLET, 50 MG, 1-2 TAB, ORALLY, Q4-6HRS MDD6 NOTES: ISTOP REGISTRY REVIEWED AND DEMONSTRATES COMPLLIANCE. BRINGS IN MEDICATIONS WHICH IS APPROPRIATE FOR WHAT WAS DISPENSED. RECENT URINE TOXICOLOGY REVIEWED. NO UNAUTHORIZED MEDICATIONS. NO ILLICIT SUBSTANCES AND PRESCRIBED MEDICATIONS WERE PRESENT. , RISKS OF NARCOTIC/OPIOD MEDICATIONS INCLUDES BUT IS NOT LIMITED TO RISK OF DEPENDANCE/DEVELOPMENT OF ADDICTION, MOOD DISTURBANCE AND DEPRESSION, OSTEOPOROSIS, HORMONAL AND LABIDAL CHANGES, RESPIRATORY DEPRESSION AND . PATIENT IS ADVISED NOT TO DRIVE OR DRINK ALCOHOL WHILE ON THESE MEDICATIONS. [facility] RE[facility]ON:SEVERE LOW BACK PAIN/HX LUMBAR SURGERY PROCEDURE CODES FA211 ESTABILISHED PATIENT [facility] CHARGE DISPOSITION & COMMUNICATION FOLLOW UP 2 MONTHS (REASON: F/U ON DR ROGERS REFERRAL) ELECTRONICALLY SIGNED BY ALVIN RIVERS ON 05/17/2020 AT 09:20 AM EST DISCLAIMER : THIS IS A VISIT SUMMARY EXTRACTED FROM THE [employer] CHART. IT IS NOT A COPY OF THE [employer] PROGRESS NOTE. THAI
== END ==
LOC: M PAIN 09:45
PROVIDERS: ATTEND Nurse Practitioner Family
DX: M96.1 Postlaminectomy syndrome, not elsewhere classified (principal); K21.9 Gastro-esophageal reflux disease without esophagitis; I10 Essential (primary) hypertension; F41.9 Anxiety disorder, unspecified; F32.9 Major depressive disorder, single episode, unspecified; F17.210 Nicotine dependence, cigarettes, uncomplicated; Q61.5 Medullary cystic kidney; Z79.891 Long term (current) use of opiate analgesic; Z79.899 Other long term (current) drug therapy; Z88.2 Allergy status to sulfonamides; Z88.1 Allergy status to other antibiotic agents

== ENCOUNTER → 2020-07-16 | Outpatient (CLI) | payer OTHER ==
--- NOTE | 2020-07-16 18:29 | REPVR ---
PROCEDURE INFORMATION: Exam: MR Lumbar Spine Without and With Contrast Exam date and time: 07/16/2020 3:41 PM Age: 30 years old Clinical indication: Other: Spondylosis; Prior surgery; Surgery date: 6+ months; Surgery type: Discectomy TECHNIQUE: Imaging protocol: Multiplanar magnetic resonance images of the lumbar spine without and with intravenous contrast. Contrast material: PROHANCE; Contrast volume: 17 ml; Contrast route: INTRAVENOUS (IV); COMPARISON: CR Spine, Lumbosacral, partial 02/22/2015 4:58 PM FINDINGS: Vertebrae: There are degenerative changes within the lower lumbar spine. No fracture, subluxation or suspicious bone lesion. Spinal cord: The lower thoracic cord has a normal appearance of the conus terminates at the level of the T12-L1 disc space. L1-L2: No significant disc disease. No significant spinal canal stenosis. No neural foraminal stenosis. L2-L3: No significant disc disease. No significant spinal canal stenosis. No neural foraminal stenosis. L3-L4: Mild posterior broad-based disc bulge. Mild bilateral facet hypertrophy, worse on the right. No focal disc protrusion, nerve root impingement or spinal stenosis. L4-L5: Mild disc space height loss and decreased disc signal. Focal high T2 signal tissue which enhances following contrast administration located at the posterior central aspect of the L4-L5 disc is consistent with peridural fibrosis. Mild residual L4-L5 disc bulge is noted. No definite recurrent disc herniation or nerve root impingement. Mild bilateral facet hypertrophy. Mild spinal stenosis. L5-S1: Disc space height loss, decreased disc signal and Modic type 2 endplate signal change. Posterior broad-based disc protrusion and right posterior paracentral focal disc protrusion/extrusion, abutting but not displacing the right S1 nerve root. Mild facet hypertrophy. No spinal stenosis. Soft tissues: Unremarkable. IMPRESSION: 1. Findings consistent with peridural fibrosis at L4-L5. Correlate with previous surgical procedure. 2. L5-S1 posterior broad-based disc protrusion and right posterior paracentral focal disc protrusion/extrusion which abuts but does not displace the right S1 nerve root. Electronically signed by: Otis Roy On 07/16/2020 18:29:50 PM
== END ==
LOC: M PLARAD 13:45
PROVIDERS: ATTEND Physical Medicine & Rehabilitation
DX: M51.27 Other intervertebral disc displacement, lumbosacral region (principal); M48.061 Spinal stenosis, lumbar region without neurogenic claudication; M89.38 Hypertrophy of bone, other site

== ENCOUNTER → 2020-07-17 | Outpatient (CLI) | payer OTHER ==
--- NOTE | 2020-07-20 00:48 | ECWPNPC ---
PATIENT NAME: MARTÍN GILLIS : 1990 GENDER: FEMALE VISIT DATE: 07/17/2020 DISCHARGE DATE: 07/17/20 1229 VISIT LOCKED DATE TIME: PHYSICIAN: AURELIO PICHARDO RESOURCE: AURELIO PICHARDO REASON FOR APPOINTMENT 1. F/U ON DR ROGERS REFERRAL HISTORY OF PRESENT ILLNESS DEPRESSION SCREENING: PHQ-9 LITTLE INTEREST OR PLEASURE IN DOING THINGSSEVERAL DAYS FEELING DOWN, DEPRESSED, OR HOPELESSNEARLY EVERY DAY TROUBLE FALLING OR STAYING ASLEEP, OR SLEEPING TOO MUCHNEARLY EVERY DAY FEELING TIRED OR HAVING LITTLE ENERGYNEARLY EVERY DAY POOR APPETITE OR OVEREATING SEVERAL DAYS FEELING BAD ABOUT YOURSELF-OR THAT YOU ARE A FAILURE OR HAVE LET YOURSELF OR YOUR FAMILY DOWN SEVERAL DAYS TROUBLE CONCENTRATING ON THINGS, SUCH READING THE NEWSPAPER OR WATCHING TELEVISION NOT AT ALL MOVING OR SPEAKING SO SLOWLY THAT OTHER PEOPLE COULD HAVE NOTICED. OR THE OPPOSITE- BEING SO FIDGETY OR RESTLESS THAT YOU HAVE BEEN MOVING AROUND A LOT MORE THAN USUALNOT AT ALL THOUGHTS THAT YOU WOULD BE BETTER OFF , OR OF HURTING YOURSELF IN SOME WAY?NOT AT ALL TOTAL SCORE:12 INTERPRETATIONMODERATE DEPRESSION PHQ-2 (2015 EDITION) LITTLE INTEREST OR PLEASURE IN DOING THINGS?NEARLY EVERY DAY FEELING DOWN, DEPRESSED, OR HOPELESS?NEARLY EVERY DAY TOTAL SCORE6 GENERAL: HERE FOR FOLLOW-UP AND MEDICATION MANAGEMENT FOR CHRONIC LOW BACK PAIN. HISTORY OF POSTLAMINECTOMY PAIN SYNDROME. HAS HAD INCREASING PAIN OVER THE PAST 6 MONTHS TO A YEAR. FOLLOWING WITH [facility] AND RECENTLY HAD AN MRI OF THE LUMBAR SPINE. REPORTS INEFFECTIVENESS OF TRAMADOL LATELY. REVIEWED MEDICATION AND TREATMENT PLAN. -. FALL RISK SCREENING: SCREENING : NO FALLS REPORTED IN THE LAST YEAR. PAIN SCREENING: PATIENT HAS A COMPLAINT OF ACUTE OR CHRONIC PAIN :YES LOCATION OF PAIN:LOW BACK INTENSITY OF PAIN (SCALE OF 1 TO 10):7 WHAT DOES YOUR PAIN FEEL LIKE:ACHING, SHARP, THROBBING DURATION:CONTINOUS, CONSTANT PAIN IS INCREASED BY:ACTIVITIES PAIN IS DECREASED BY:USE OF PAIN MEDICATIONS NURSING NOTE: PT STATES SHE IS SEEING A COUNSELOR FOR HER DEPRESSION AND SHE IS TAKING ANTI-DEPRESSANTS. EM. PAIN CENTER INTAKE QUESTIONS: DO YOU HAVE A HISTORY OF MRSA? :NO DO YOU TAKE A BLOOD THINNERS? :NO DO YOU HAVE ANY BLEEDING DISORDERS? :NO ANY NEW NUMBNESS OR WEAKNESS IN YOUR LEGS OR ARMS? :NO ANY PACEMAKER,DEFIBRILLATOR, OR DORSAL COLUMN STIMULATOR? :NO DO YOU HAVE ANY RASHES OR OPEN SORES? :NO ARE YOU ALLERGIC TO IV DYE? :NO ARE YOU DIABETIC? :NO ANY NEW PROBLEMS WITH YOUR MEDICATIONS? :NO HAVE YOU RECEIVED A VACCINE IN THE PAST 30 DAYS? :YES IF SO WHAT VACCINE AND WHEN? #2 COVID VACCINE 06/05/20 DO YOU PLAN TO RECEIVE A VACCINE IN THE NEXT 21 DAYS? :YES 1ST COVID 05/15/2020 DO YOU NEED ANY PRESCRIPTION? :YES TRAMADOL DO YOU TAKE ANY IMMUNOSUPPRESSIVE MEDICATIONS? :NO IS THERE A CHANCE YOU COULD BE ? :NO ARE YOU BREAST FEEDING? :NO CURRENT MEDICATIONS TAKING IBUPROFEN 200 MG TABLET 4 TABLETS ORALLY TWICE A DAY PRN TAKING LAMICTAL 200 MG TABLET 1 TABLET ORALLY ONCE A DAY TAKING VRAYLAR 3 MG CAPSULE 1 CAPSULE ORALLY ONCE A DAY TAKING MELATONIN 5 MG TABLET 2 TABLET IN THE EVENING ORALLY ONCE A DAY TAKING WELLBUTRIN SR 150 MG TABLET EXTENDED RELEASE DIRECTED ORALLY TAKING OXYBUTYNIN CHLORIDE 5 MG/5ML SYRUP 5 ML ORALLY TWICE A DAY TAKING TRAMADOL HCL 50 MG TABLET 1-2 TAB ORALLY Q4-6HRS MDD6 NOT-TAKING HYDROXYZINE HCL 50 MG/ML SOLUTION 1 TABLET DISRECTED INTRAMUSCULAR NEEDED NOT-TAKING MINOCYCLINE HCL 100 MG TABLET 1 TABLET ORALLY TWICE A DAY NOT-TAKING TRAZODONE HCL 100 MG TABLET 1 TABLET AT BEDTIME NEEDED ORALLY ONCE A DAY NOT-TAKING REXULTI 2 MG TABLET 1 TABLET ORALLY ONCE A DAY NOT-TAKING MIRTAZAPINE 7.5 MG TABLET 1 TABLET AT BEDTIME ORALLY ONCE A DAY NOT-TAKING MIRENA (52 MG) 20 MCG/24HR INTRAUTERINE DEVICE DIRECTED INTRAUTERINE NOT-TAKING BUSPIRONE HCL 10 MG TABLET 2 TABLETS ORALLY TWICE A DAY NOT-TAKING CETIRIZINE HCL 10 MG TABLET 1 TABLET ORALLY ONCE A DAY NOT-TAKING SPIRONOLACTONE 50 MG TABLET 1 TABLET ORALLY DAILY NOT-TAKING ABILIFY 2 MG TABLET 1 TABLET ORALLY ONCE A DAY NOT-TAKING TOPAMAX 25 MG TABLET 1 TABLET ORALLY TWICE A DAY NOT-TAKING ALPRAZOLAM 0.25 MG TABLET 1 TABLET ORALLY TID PRN NOT-TAKING ZZZQUIL 50 MG/30ML LIQUID ORALLY BEFORE BEDTIME NOT-TAKING MULTI FOR HER - TABLET ORALLY NOT-TAKING LEXAPRO 10 MG TABLET 1 TABLET ORALLY ONCE A DAY NOT-TAKING ADVIL PM 200-38 MG TABLET 2 TABLETS AT BEDTIME NEEDED ORALLY ONCE A DAY NOT-TAKING CYMBALTA 20 MG CAPSULE DELAYED RELEASE PARTICLES 2 CAPSULE ORALLY ONCE A DAY NOT-TAKING GABAPENTIN 100 MG CAPSULE 1 CAPSULE ORALLY BID NOT-TAKING PREVIFEM 0.25-35 MG-MCG TABLET 1 TABLET ORALLY ONCE A DAY NOT-TAKING RIBOFLAVIN 25 MG TABLET 1 TABLET WITH A MEAL ORALLY ONCE A DAY NOT-TAKING IMITREX 100 MG TABLET 1 TABLET NEEDED ORALLY TWICE A DAY NOT-TAKING LIDOCAINE HCL JELLY MCC 2 % JELLY 1 APPLICATION TO AFFECTED AREA NEEDED INTRAVESICALLY PRIOR TO PROCEDURE NOT-TAKING PERCOCET 5-325 MG TABLET 1 TABLET NEEDED ORALLY Q8H PRN MDD3 NOT-TAKING CIPRO 500 MG TABLET 1 TABLET ORALLY DIRECTED NOT-TAKING SOMA 350 MG TABLET 1 TABLET NEEDED ORALLY BEFORE BEDTIME PRN MDD1 NOT-TAKING ORSYTHIA 0.1-20 MG-MCG TABLET ORALLY NOT-TAKING ROBAXIN 500 MG TABLET 1 ORALLY Q8H PRN MDD3 NOT-TAKING MELOXICAM 7.5 MG TABLET 1 CAP ORALLY DAILY MEDICATION LIST REVIEWED AND RECONCILED WITH THE PATIENT PAST MEDICAL HISTORY KIDNEY STONES GERD HYPERTENSION WHILE PREG. ABNORMAL EKG'S --SEES [facility]. MEDULARY SPONGE KIDNEY ANXIETY DEPRESSION INCONTINENCE ALLERGIES BACTRIM: PERSONALITY CHANGE - ALLERGY CEFZIL: HIVES - ALLERGY SOCIAL HISTORY GENERAL: TOBACCO USE ARE YOU A:CURRENT SMOKER HOW OFTEN DO YOU SMOKE CIGARETTES?EVERY DAY HOW SOON AFTER YOU WAKE UP DO YOU SMOKE YOUR FIRST CIGARETTE?WITHIN 5 MIN HOW MANY CIGARETTES A DAY DO YOU SMOKE?11-20 ARE YOU INTERESTED IN QUITTING?NOT READY TO QUIT PATIENT COUNSELED ON THE DANGERS OF TOBACCO USE AND URGED TO QUIT:04/01/2020 COUNSELED THE PATIENT ON SMOKING EFFECTS, EDUCATION [id number]/25/2021 [employer] E-CIGARETTENO SMOKING CESSATION INFORMATION GIVEN04/01/2020 LATEX QUESTIONNAIRE LATEX ALLERGY : HAVE YOU EVER DEVELOPED ANY TYPE OF REACTION AFTER HANDLING LATEX PRODUCTS SUCH RUBBER GLOVES, CONDOMS, DIAPHRAGMS, BALLOONS, SOCKS, OR UNDERWEAR?NO LATEX ALLERGY : HAVE YOU EVER DEVELOPED ANY TYPE OF REACTION DURING OR AFTER DENTAL APPOINTMENT, VAGINAL/RECTAL EXAMINATION, SURGICAL PROCEDURE, OR ANY OTHER EXPOSURE?NO DATE ASKED : 05/13/2020 LATEX RISK : HAVE YOU EVER HAD ANY DIFFICULTY BREATHING OR HIVES AFTER EATING OR HANDLING ANY FRUITS, OR VEGETABLES; SUCH KIWI, BANANAS, STONE FRUITS, OR CHESTNUTSYES - PLEASE INDICATE : BANANAS STOMACH CRAMPS WHEN EATING BANANAS. LATEX RISK : DO YOU HAVE A PREVIOUS PERSONAL HISTORY OF MORE THAN NINE SURGERIES, SPINA BIFIDA, OR REPEATED CATHERIZATIONS? NO LATEX RISK : ARE YOU FREQUENTLY EXPOSED TO LATEX PRODUCTS IN YOUR OCCUPATION?NO ALCOHOL USE: NO. ALCOHOL SCREENING DID YOU HAVE A DRINK CONTAINING ALCOHOL IN THE PAST YEAR?NO POINTS0 INTERPRETATIONNEGATIVE RECREATIONAL DRUG USE DRUG USE?NO CAFFEINE 2-5/DAY. SEXUAL HX HAD SEX IN THE LAST 12 MONTHS (VAGINAL, ORAL, OR ANAL)?NO HAVE YOU EVER HAD AN STD?NO MORMON NO UAT[place]IN BELIEFS THAT WOULD IMPACT HEALTH CARE. LANGUAGE CITIZEN OF [place]. EDUCATION SOME COLLEGE PLAN OF CARE FOR PAIN CENTER REVIEWED WITH PAT. AND SHE VERBALIZED UNDERSTANDING.. LEARNING BARRIERS / SPECIAL NEEDS CHANGE FROM LAST VISIT?YES BARRIERS TO LEARNING?NO HEARING IMPAIRED?NO VISION IMPAIRED?YES COGNITIVELY IMPAIRED?NO :CORRECTIVE LENSES READINESS TO LEARN?YES LEARNING PREFERENCES?YES :DEMONSTRATION/VERBAL INSTRUCTION LEARNING CAPABILITIES PRESENT?NO EMOTIONAL BARRIERS?NO SPECIAL DEVICES?NO TRIMMER MACHINE NEEDED?NO OCCUPATION: UNEMPLOYED. DIET: REGULAR. EXERCISE: WALKS. MARITAL STATUS: SINGLE. OTHERS AT HOME: MOTHER, OTHER NON-RELATIVE, CHILD. TODAY'S VISIT 07/19/2019 PATIENT DESCRIBES PAIN :ACHING, HAVE IT ALL THE TIME, SHARP FROM 0-10, WHAT LEVEL IS YOUR PAIN TODAY?7 PRECIPITATING FACTORS PROLONGED STANDING OR WALKING, SITTING, OR HEAVY LIFTING ALLEVIATING FACTORS CHANGING POSITIONS, HEATING PAD REVIEWED WITH PATIENT 10/21/18 NLJREVIEWED WITH PATIENT 04/21/2019 1344 JS. REVIEW OF SYSTEMS CONSTITUTIONAL: ANY RECENT FEVER NO . CHILLS NO . WEIGHT CHANGE OF UNKNOWN REASONS NO . GASTROENTEROLOGY: NEW UNEXPLAINABLE CHANGES IN BOWEL CONTROL NO . CONSTIPATION NO . GENITOURINARY: ANY NEW CHANGE IN BLADDER CONTROL? NO . NEUROLOGY: NEW ONSET DIZZINESS OR NEUROLOGICAL CHANGES NOT MENTIONED NO . NEW NUMBNESS OR PAIN PATTERNS NOT MENTIONED AND PERTINENT TO TODAY'S VISIT NO . CARDIOLOGY: NEW CHEST PRESSURE NO . PATIENT DENIES NO . RESPIRATORY: UNEXPLAINABLE COUGH NO . NEW SHORTNESS OF BREATH NO . VITAL SIGNS WT 190 LBS, HT 5'5", BMI 31.61 INDEX, BP 135/81 MM HG, HR 103 /MIN, RR 18 /MIN, TEMP 98.6 F, OXYGEN SAT % 97%, NA INITIALS AW 1137, REVIEWED BY: EM. EXAMINATION GENERAL EXAMINATION: GENERALNO ACUTE DISTRESS, WELL NOURISHED AND HYDRATED. PSYCHAPPROPRIATE MOOD AND AFFECT . LUNGS:CLEAR TO AUSCULTATION BILATERALLY, NO WHEEZES, RHONCHI, RALES. HEART:NO MURMURS, REGULAR RATE AND RHYTHM. LUMBAR:TENDERNESS NOTED OVER L/S AXIS. WELL-HEALED SURGICAL SCAR L/S AXIS. . ASSESSMENTS CHRONIC PRESCRIPTION OPIATE USE - Z79.891 (PRIMARY) POST LAMINECTOMY SYNDROME - M96.1 TREATMENT CHRONIC PRESCRIPTION OPIATE USE DECREASE TRAMADOL HCL TABLET, 50 MG, 2 TAB, ORALLY, MIDDAY X10 DAYS THEN STOP, 10 DAYS START HYDROCODONE-ACETAMINOPHEN TABLET, 5-325 MG, 1 TABLET NEEDED, ORALLY, Q6-8 HR PRN MDD3, 30 DAYS, 90, REFILLS 0 LAB: URINE TEST [facility] MICHELLE REESE 07/17/2020 12:22:51 PM > LAST DOSE: TRAMADOL 07/17/2020 @8AM NOTES: ISTOP REGISTRY REVIEWED AND DEMONSTRATES COMPLLIANCE. BRINGS IN MEDICATIONS WHICH IS APPROPRIATE FOR WHAT WAS DISPENSED. RECENT URINE TOXICOLOGY REVIEWED. NO UNAUTHORIZED MEDICATIONS. NO ILLICIT SUBSTANCES AND PRESCRIBED MEDICATIONS WERE PRESENT. PRINTED INFORMATION FOR PATIENT ON NEW MEDICATION MORENITA NUNEZ. PROCEDURE CODES FA211 ESTABILISHED PATIENT [facility] CHARGE DISPOSITION & COMMUNICATION FOLLOW UP 2 MONTHS (REASON: MED MGMNT/REVIEW UTOX/HYDROCODONE NEW MED START) ELECTRONICALLY SIGNED BY ALVIN RIVERS ON 07/19/2020 AT 09:00 AM EDT DISCLAIMER : THIS IS A VISIT SUMMARY EXTRACTED FROM THE [employer] CHART. IT IS NOT A COPY OF THE [employer] PROGRESS NOTE. THAI
== END ==
LOC: M PAIN 11:30
PROVIDERS: ATTEND Nurse Practitioner Family
DX: M96.1 Postlaminectomy syndrome, not elsewhere classified (principal); F17.210 Nicotine dependence, cigarettes, uncomplicated; Z86.59 Personal history of other mental and behavioral disorders; Z88.1 Allergy status to other antibiotic agents; Z79.891 Long term (current) use of opiate analgesic; Z79.899 Other long term (current) drug therapy

== ENCOUNTER → 2020-09-16 | Outpatient (CLI) | payer OTHER ==
--- NOTE | 2020-09-19 04:05 | ECWPNPC ---
PATIENT NAME: MARTÍN GILLIS : 1990 GENDER: FEMALE VISIT DATE: 09/16/2020 DISCHARGE DATE: 09/16/20 1214 VISIT LOCKED DATE TIME: PHYSICIAN: AURELIO PICHARDO RESOURCE: AURELIO PICHARDO REASON FOR APPOINTMENT 1. MED MGMNT/REVIEW UTOX/HYDROCODONE NEW MED START HISTORY OF PRESENT ILLNESS GENERAL: HERE FOR FOLLOW-UP OF CHRONIC LOW BACK PAIN. HISTORY OF POSTLAMINECTOMY PAIN SYNDROME. AT HER LAST VISIT WE STOPPED TRAMADOL AND STARTED HYDROCODONE 5/325 WITH MAXIMUM DAILY DOSE OF 3 TABLETS. PATIENT FINDS IT HELPFUL AND AN IMPROVEMENT FROM TRAMADOL BUT IS REPORTING PERIODS OF SIGNIFICANT PAIN INCREASE AT NIGHTTIME AFTER SHE HAS TAKEN 3 DOSES FOR THE DAY. DISCUSSED TREATMENT PLAN. SHE WAS EVALUATED BY [facility] AND INITIALLY TOLD SHE COULD BENEFIT FROM A [facility]USION BUT THEN RECOMMENDED EVALUATION AT [facility] FOR DORSAL COLUMN STIMULATOR. BRIEFLY DISCUSSED DORSAL COLUMN STIMULATOR AND GAVE HER INFORMATION TO TAKE HOME. DISCUSSED MEDICATION TREATMENT PLAN. -. FALL RISK SCREENING: SCREENING : NO FALLS REPORTED IN THE LAST YEAR. PAIN SCREENING: PATIENT HAS A COMPLAINT OF ACUTE OR CHRONIC PAIN :YES LOCATION OF PAIN:LOW BACK INTENSITY OF PAIN (SCALE OF 1 TO 10):7 WHAT DOES YOUR PAIN FEEL LIKE:CONTINOUS, SHARP, STABBING, THROBBING, SHOOTING DURATION:CONTINOUS, CONSTANT, ALL DAY PAIN IS INCREASED BY:ACTIVITIES PAIN IS DECREASED BY:USE OF PAIN MEDICATIONS NURSING NOTE: -. PAIN CENTER INTAKE QUESTIONS: DO YOU HAVE A HISTORY OF MRSA? :NO DO YOU TAKE A BLOOD THINNERS? :NO DO YOU HAVE ANY BLEEDING DISORDERS? :NO ANY NEW NUMBNESS OR WEAKNESS IN YOUR LEGS OR ARMS? :NO ANY PACEMAKER,DEFIBRILLATOR, OR DORSAL COLUMN STIMULATOR? :NO DO YOU HAVE ANY RASHES OR OPEN SORES? :NO ARE YOU ALLERGIC TO IV DYE? :NO ARE YOU DIABETIC? :NO ANY NEW PROBLEMS WITH YOUR MEDICATIONS? :YES NORCO IS HELPING BUT IT DOES NOT LAST VERY LONG HAVE YOU RECEIVED A VACCINE IN THE PAST 30 DAYS? :NO DO YOU PLAN TO RECEIVE A VACCINE IN THE NEXT 21 DAYS? :NO DO YOU NEED ANY PRESCRIPTION? :YES HYDROCODONE-ACETAMINOPHEN 5-325 MG DO YOU TAKE ANY IMMUNOSUPPRESSIVE MEDICATIONS? :NO IS THERE A CHANCE YOU COULD BE ? :NO ARE YOU BREAST FEEDING? :NO CURRENT MEDICATIONS TAKING IBUPROFEN 200 MG TABLET 4 TABLETS ORALLY TWICE A DAY PRN TAKING LAMICTAL 200 MG TABLET 1 TABLET ORALLY ONCE A DAY TAKING VRAYLAR 4.5 MG CAPSULE 1 CAPSULE ORALLY ONCE A DAY TAKING MELATONIN 5 MG TABLET 2 TABLET IN THE EVENING ORALLY ONCE A DAY TAKING OXYBUTYNIN CHLORIDE 5 MG/5ML SYRUP 5 ML ORALLY TWICE A DAY TAKING TRAMADOL HCL 50 MG TABLET 2 TAB ORALLY MIDDAY X10 DAYS THEN STOP TAKING HYDROCODONE-ACETAMINOPHEN 5-325 MG TABLET 1 TABLET NEEDED ORALLY Q6-8 HR PRN MDD3 TAKING ZOLOFT 50 MG TABLET 1 TABLET ORALLY ONCE A DAY NOT-TAKING WELLBUTRIN SR 150 MG TABLET EXTENDED RELEASE DIRECTED ORALLY NOT-TAKING HYDROXYZINE HCL 50 MG/ML SOLUTION 1 TABLET DISRECTED INTRAMUSCULAR NEEDED NOT-TAKING MINOCYCLINE HCL 100 MG TABLET 1 TABLET ORALLY TWICE A DAY NOT-TAKING TRAZODONE HCL 100 MG TABLET 1 TABLET AT BEDTIME NEEDED ORALLY ONCE A DAY NOT-TAKING REXULTI 2 MG TABLET 1 TABLET ORALLY ONCE A DAY NOT-TAKING MIRTAZAPINE 7.5 MG TABLET 1 TABLET AT BEDTIME ORALLY ONCE A DAY NOT-TAKING MIRENA (52 MG) 20 MCG/24HR INTRAUTERINE DEVICE DIRECTED INTRAUTERINE NOT-TAKING BUSPIRONE HCL 10 MG TABLET 2 TABLETS ORALLY TWICE A DAY NOT-TAKING CETIRIZINE HCL 10 MG TABLET 1 TABLET ORALLY ONCE A DAY NOT-TAKING SPIRONOLACTONE 50 MG TABLET 1 TABLET ORALLY DAILY NOT-TAKING ABILIFY 2 MG TABLET 1 TABLET ORALLY ONCE A DAY NOT-TAKING TOPAMAX 25 MG TABLET 1 TABLET ORALLY TWICE A DAY NOT-TAKING ALPRAZOLAM 0.25 MG TABLET 1 TABLET ORALLY TID PRN NOT-TAKING ZZZQUIL 50 MG/30ML LIQUID ORALLY BEFORE BEDTIME NOT-TAKING MULTI FOR HER - TABLET ORALLY NOT-TAKING LEXAPRO 10 MG TABLET 1 TABLET ORALLY ONCE A DAY NOT-TAKING ADVIL PM 200-38 MG TABLET 2 TABLETS AT BEDTIME NEEDED ORALLY ONCE A DAY NOT-TAKING CYMBALTA 20 MG CAPSULE DELAYED RELEASE PARTICLES 2 CAPSULE ORALLY ONCE A DAY NOT-TAKING GABAPENTIN 100 MG CAPSULE 1 CAPSULE ORALLY BID NOT-TAKING PREVIFEM 0.25-35 MG-MCG TABLET 1 TABLET ORALLY ONCE A DAY NOT-TAKING RIBOFLAVIN 25 MG TABLET 1 TABLET WITH A MEAL ORALLY ONCE A DAY NOT-TAKING IMITREX 100 MG TABLET 1 TABLET NEEDED ORALLY TWICE A DAY NOT-TAKING LIDOCAINE HCL JELLY MCFP 2 % JELLY 1 APPLICATION TO AFFECTED AREA NEEDED INTRAVESICALLY PRIOR TO PROCEDURE NOT-TAKING PERCOCET 5-325 MG TABLET 1 TABLET NEEDED ORALLY Q8H PRN MDD3 NOT-TAKING CIPRO 500 MG TABLET 1 TABLET ORALLY DIRECTED NOT-TAKING SOMA 350 MG TABLET 1 TABLET NEEDED ORALLY BEFORE BEDTIME PRN MDD1 NOT-TAKING ORSYTHIA 0.1-20 MG-MCG TABLET ORALLY NOT-TAKING ROBAXIN 500 MG TABLET 1 ORALLY Q8H PRN MDD3 NOT-TAKING MELOXICAM 7.5 MG TABLET 1 CAP ORALLY DAILY MEDICATION LIST REVIEWED AND RECONCILED WITH THE PATIENT PAST MEDICAL HISTORY KIDNEY STONES GERD HYPERTENSION WHILE PREG. ABNORMAL EKG'S --[facility] MED[facility] SPONGE KIDNEY ANXIETY DEPRESSION INCONTINENCE 1ST COVID 05/15/2020 2ND COVID VACCINE 06/05/20 ALLERGIES BACTRIM: PERSONALITY CHANGE - ALLERGY CEFZIL: HIVES - ALLERGY SOCIAL HISTORY GENERAL: TOBACCO USE ARE YOU A:CURRENT SMOKER ARE YOU INTERESTED IN QUITTING?NOT READY TO QUIT COUNSELED THE PATIENT ON SMOKING EFFECTS, EDUCATION [id number]/12/2021 HOW MANY CIGARETTES A DAY DO YOU SMOKE?11-20 HOW SOON AFTER YOU WAKE UP DO YOU SMOKE YOUR FIRST CIGARETTE?WITHIN 5 MIN HOW OFTEN DO YOU SMOKE CIGARETTES?EVERY DAY PATIENT COUNSELED ON THE DANGERS OF TOBACCO USE AND URGED TO QUIT:09/16/2020 SMOKING CESSATION INFORMATION GIVEN04/01/2020 [employer] E-CIGARETTENO LATEX QUESTIONNAIRE LATEX ALLERGY : HAVE YOU EVER DEVELOPED ANY TYPE OF REACTION AFTER HANDLING LATEX PRODUCTS SUCH RUBBER GLOVES, CONDOMS, DIAPHRAGMS, BALLOONS, SOCKS, OR UNDERWEAR?NO LATEX ALLERGY : HAVE YOU EVER DEVELOPED ANY TYPE OF REACTION DURING OR AFTER DENTAL APPOINTMENT, VAGINAL/RECTAL EXAMINATION, SURGICAL PROCEDURE, OR ANY OTHER EXPOSURE?NO LATEX RISK : HAVE YOU EVER HAD ANY DIFFICULTY BREATHING OR HIVES AFTER EATING OR HANDLING ANY FRUITS, OR VEGETABLES; SUCH KIWI, BANANAS, STONE FRUITS, OR CHESTNUTSYES - PLEASE INDICATE : BANANAS STOMACH CRAMPS WHEN EATING BANANAS. LATEX RISK : DO YOU HAVE A PREVIOUS PERSONAL HISTORY OF MORE THAN NINE SURGERIES, SPINA BIFIDA, OR REPEATED CATHERIZATIONS? NO LATEX RISK : ARE YOU FREQUENTLY EXPOSED TO LATEX PRODUCTS IN YOUR OCCUPATION?NO DATE ASKED : 09/16/2020 ALCOHOL USE: NO. ALCOHOL SCREENING DID YOU HAVE A DRINK CONTAINING ALCOHOL IN THE PAST YEAR?NO POINTS0 INTERPRETATIONNEGATIVE RECREATIONAL DRUG USE DRUG USE?NO CAFFEINE 2-5/DAY. SEXUAL HX HAD SEX IN THE LAST 12 MONTHS (VAGINAL, ORAL, OR ANAL)?NO HAVE YOU EVER HAD AN STD?NO ORTHODOXY NO EPISCOPAL BELIEFS THAT WOULD IMPACT HEALTH CARE. LANGUAGE TELUGU. EDUCATION SOME COLLEGE PLAN OF CARE FOR PAIN CENTER REVIEWED WITH PAT. AND SHE VERBALIZED UNDERSTANDING.. LEARNING BARRIERS / SPECIAL NEEDS CHANGE FROM LAST VISIT?YES BARRIERS TO LEARNING?NO HEARING IMPAIRED?NO VISION IMPAIRED?YES :CORRECTIVE LENSES COGNITIVELY IMPAIRED?NO READINESS TO LEARN?YES LEARNING PREFERENCES?YES :DEMONSTRATION/VERBAL INSTRUCTION LEARNING CAPABILITIES PRESENT?NO EMOTIONAL BARRIERS?NO SPECIAL DEVICES?NO HIGH RIGGER NEEDED?NO OCCUPATION: UNEMPLOYED. DIET: REGULAR. EXERCISE: WALKS. MARITAL STATUS: SINGLE. OTHERS AT HOME: MOTHER, OTHER NON-RELATIVE, CHILD. TODAY'S VISIT 07/19/2019 PATIENT DESCRIBES PAIN :ACHING, HAVE IT ALL THE TIME, SHARP FROM 0-10, WHAT LEVEL IS YOUR PAIN TODAY?7 PRECIPITATING FACTORS PROLONGED STANDING OR WALKING, SITTING, OR HEAVY LIFTING ALLEVIATING FACTORS CHANGING POSITIONS, HEATING PAD REVIEWED WITH PATIENT 10/21/18 NLJREVIEWED WITH PATIENT 04/21/2019 1344 JS. REVIEW OF SYSTEMS CONSTITUTIONAL: ANY RECENT FEVER NO, NO . CHILLS NO, NO . WEIGHT CHANGE OF UNKNOWN REASONS NO, NO . GASTROENTEROLOGY: NEW UNEXPLAINABLE CHANGES IN BOWEL CONTROL NO, NO . CONSTIPATION NO, NO . GENITOURINARY: ANY NEW CHANGE IN BLADDER CONTROL? NO, NO . NEUROLOGY: NEW ONSET DIZZINESS OR NEUROLOGICAL CHANGES NOT MENTIONED NO, NO . NEW NUMBNESS OR PAIN PATTERNS NOT MENTIONED AND PERTINENT TO TODAY'S VISIT NO, NO . CARDIOLOGY: NEW CHEST PRESSURE NO, NO . PATIENT DENIES NO, NO . RESPIRATORY: UNEXPLAINABLE COUGH NO, NO . NEW SHORTNESS OF BREATH NO, NO . VITAL SIGNS WT 179 LBS, HT 5'5", BMI 29.78 INDEX, BP 121/72 MM HG, HR 82 /MIN, RR 18 /MIN, TEMP 98 F, OXYGEN SAT % 98%, SAFE IN ENV? (Y/N) YEST.MARY ANN NUNEZ. EXAMINATION GENERAL EXAMINATION: GENERALAWAKE,ALERT ,PLEAASANT . PSYCHAFFECT NORMAL . LUNGS:LUNG HDZ ARE CLEAR TO AUSCULTATION BILATERALLY. GOOD MOVEMENT OF AIR . HEART:S1, S2 IN A REGULAR RATE AND RHYTHM. NO SIGNIFICANT MURMURS, RUBS OR GALLOPS NOTED . ASSESSMENTS CHRONIC PRESCRIPTION OPIATE USE - Z79.891 (PRIMARY) POST LAMINECTOMY SYNDROME - M96.1 TREATMENT CHRONIC PRESCRIPTION OPIATE USE INCREASE HYDROCODONE-ACETAMINOPHEN TABLET, 5-325 MG, 1 TABLET NEEDED, ORALLY, Q6-8 HR PRN MDD3, 30 DAYS, 90, REFILLS 0 NOTES: RISKS OF NARCOTIC/OPIOD MEDICATIONS INCLUDES BUT IS NOT LIMITED TO RISK OF DEPENDANCE/DEVELOPMENT OF ADDICTION, MOOD DISTURBANCE AND DEPRESSION, OSTEOPOROSIS, HORMONAL AND LABIDAL CHANGES, RESPIRATORY DEPRESSION AND . PATIENT IS ADVISED NOT TO DRIVE OR DRINK ALCOHOL WHILE ON THESE MEDICATIONS , ISTOP REGISTRY REVIEWED AND DEMONSTRATES COMPLLIANCE. BRINGS IN MEDICATIONS WHICH IS APPROPRIATE FOR WHAT WAS DISPENSED. RECENT URINE TOXICOLOGY REVIEWED. NO UNAUTHORIZED MEDICATIONS. NO ILLICIT SUBSTANCES AND PRESCRIBED MEDICATIONS WERE PRESENT. PROCEDURE CODES FA211 ESTABILISHED PATIENT [facility] CHARGE DISPOSITION & COMMUNICATION FOLLOW UP 3 MONTHS (REASON: MED MGMNT/UTOX) ELECTRONICALLY SIGNED BY ALVIN RIVERS ON 09/18/2020 AT 09:53 AM EDT DISCLAIMER : THIS IS A VISIT SUMMARY EXTRACTED FROM THE [employer] CHART. IT IS NOT A COPY OF THE [employer] PROGRESS NOTE. THAI
== END ==
LOC: M PAIN 11:30
PROVIDERS: ATTEND Nurse Practitioner Family
DX: M96.1 Postlaminectomy syndrome, not elsewhere classified (principal); F17.210 Nicotine dependence, cigarettes, uncomplicated; Z86.59 Personal history of other mental and behavioral disorders; Z88.1 Allergy status to other antibiotic agents; Z79.899 Other long term (current) drug therapy

== ENCOUNTER → 2020-12-22 | Outpatient (REF) | payer OTHER | LOC: M WUC 18:33 | PROVIDERS: ATTEND Physician Assistant | DX: R10.84 Generalized abdominal pain (principal) ==

== ENCOUNTER → 2020-12-23 | Outpatient (CLI) | payer OTHER ==
[2020-12-23 10:27] LABS: BASO # 0.1 10^3/uL (0.0-0.2); BASO % 0.7 % (0.0-1.0); EOS # 0.3 10^3/uL (0.0-0.5); EOS % 1.9 % (0.0-3.0); HEMATOCRIT 43.4 % (36.0-47.0); HEMOGLOBIN 14.5 g/dl (12.0-15.5); LYMPH # 3.1 10^3/uL (1.5-5.0); LYMPH % 20.2 % (24.0-44.0); MEAN CORPUSCULAR HEMOGLOBIN 31.3 pg (27.0-33.0); MEAN CORPUSCULAR HGB CONC 33.4 g/dl (32.0-36.5); MEAN CORPUSCULAR VOLUME 93.5 fl (80.0-96.0); MONO # 1.1 10^3/uL (0.0-0.8); MONO % 6.8 % (2.0-8.0); NEUTROPHILS # 10.7 10^3/uL (1.5-8.5); NEUTROPHILS % 70.1 % (36.0-66.0); PLATELET COUNT, AUTOMATED 357 10^3/uL (150-450); RED BLOOD COUNT 4.64 10^6/uL (4.00-5.40); WHITE BLOOD COUNT 15.3 10^3/uL (4.0-10.0)
[2020-12-23 10:59] LABS: ALBUMIN 3.9 GM/DL (3.2-5.2); ALT/SGPT 20 U/L (12-78); BILIRUBIN,TOTAL 0.4 MG/DL (0.2-1.0); BLOOD UREA NITROGEN 12 MG/DL (7-18); CALCIUM LEVEL 9.4 MG/DL (8.5-10.1); CARBON DIOXIDE LEVEL 25 MEQ/L (21-32); CHLORIDE LEVEL 110 MEQ/L (98-107); CREATININE FOR GFR 0.64 MG/DL (0.55-1.30); GLOMERULAR FILTRATION RATE > 60.0 (>60); GLUCOSE, FASTING 94 MG/DL (70-100); HCG, SERUM QUANTITATIVE < 1.0 MIU/ML; POTASSIUM SERUM 3.8 MEQ/L (3.5-5.1); SODIUM LEVEL 140 MEQ/L (136-145); TOTAL PROTEIN 7.2 GM/DL (6.4-8.2)
== END ==
LOC: M WUC 08:31
PROVIDERS: ATTEND Physician Assistant
DX: R10.84 Generalized abdominal pain (principal)

== ENCOUNTER → 2021-01-07 | Outpatient (CLI) | payer OTHER ==
--- NOTE | 2021-01-07 14:27 | REP ---
INDICATION: PAIN COMPARISON: 07/13/2013. TECHNIQUE: Five views right knee. FINDINGS: There is no evidence of acute fracture, dislocation, or intrinsic bone disease.There is mild narrowing of the lateral patellofemoral joint. There is no radiographic evidence of a significant joint effusion. IMPRESSION: No fracture or dislocation. Mild narrowing lateral patellofemoral joint. <Electronically signed by Sekou Cam > 01/07/21 [id number]
== END ==
LOC: M WUC 08:27
PROVIDERS: ATTEND Physician Assistant
DX: M17.11 Unilateral primary osteoarthritis, right knee (principal)

== ENCOUNTER → 2021-02-20 | Outpatient (CLI) | payer OTHER | LOC: M PAIN 09:45 | PROVIDERS: ATTEND Anesthesiology | DX: M96.1 Postlaminectomy syndrome, not elsewhere classified (principal); M51.16 Intervertebral disc disorders with radiculopathy, lumbar region; F17.210 Nicotine dependence, cigarettes, uncomplicated; Z79.891 Long term (current) use of opiate analgesic; Z79.899 Other long term (current) drug therapy ==

== ENCOUNTER → 2021-04-04 | Outpatient (REF) | payer OTHER | LOC: M LAB REF 15:43 | PROVIDERS: ATTEND Physician Assistant Medical | DX: H92.11 Otorrhea, right ear (principal) ==

== ENCOUNTER → 2021-04-07 | Outpatient (CLI) | payer OTHER | LOC: M PLAIMG 09:03 | PROVIDERS: ATTEND Anesthesiology | DX: M96.1 Postlaminectomy syndrome, not elsewhere classified (principal); M51.24 Other intervertebral disc displacement, thoracic region; M47.816 Spondylosis without myelopathy or radiculopathy, lumbar region ==

== ENCOUNTER → 2021-06-04 | Outpatient (REF) | payer OTHER | LOC: M LAB REF 12:29 | PROVIDERS: ATTEND Obstetrics & Gynecology | DX: R30.0 Dysuria (principal) ==

== ENCOUNTER → 2021-07-30 | Outpatient (CLI) | payer OTHER | LOC: M PAIN 09:00 | PROVIDERS: ATTEND Anesthesiology | DX: M96.1 Postlaminectomy syndrome, not elsewhere classified (principal); M51.16 Intervertebral disc disorders with radiculopathy, lumbar region; K21.9 Gastro-esophageal reflux disease without esophagitis; I10 Essential (primary) hypertension; F41.9 Anxiety disorder, unspecified; F32.A Depression, unspecified; R32 Unspecified urinary incontinence; Q61.5 Medullary cystic kidney; F17.210 Nicotine dependence, cigarettes, uncomplicated; Z98.890 Other specified postprocedural states; Z79.891 Long term (current) use of opiate analgesic; Z79.899 Other long term (current) drug therapy; Z88.1 Allergy status to other antibiotic agents; Z88.2 Allergy status to sulfonamides ==

== ENCOUNTER → 2021-08-01 | Outpatient (REF) | payer OTHER ==
[2021-08-01 18:15] LABS: APPEARANCE, URINE CLEAR (CLEAR); BACTERIA, URINE AUTO 1+ (NEGATIVE); BILIRUBIN, URINE AUTO NEGATIVE (NEGATIVE); BLOOD, URINE BLOOD NEGATIVE (NEGATIVE); COLOR, URINE YELLOW (YELLOW); GLUCOSE, URINE (UA) AUTO NEGATIVE (NEGATIVE); KETONE, URINE AUTO NEGATIVE (NEGATIVE); LEUKOCYTE ESTERASE, URINE AUTO NEGATIVE (NEGATIVE); MUCUS, URINE SMALL (NEGATIVE); NITRITE, URINE AUTO NEGATIVE (NEGATIVE); PROTEIN, URINE AUTO NEGATIVE (NEGATIVE); RBC, URINE AUTO 1 /HPF (0-3); SPECIFIC GRAVITY URINE AUTO 1.014 (1.002-1.035); SQUAMOUS EPITHELIAL CELL UR AU 2 /HPF (0-6); UROBILINOGEN, URINE AUTO 0.2 mg/dL (0.0-2.0); WBC, URINE AUTO 2 /HPF (0-3)
== END ==
LOC: M SMT 17:02
PROVIDERS: ATTEND Urology
DX: Q61.5 Medullary cystic kidney (principal)

== ENCOUNTER → 2021-08-13 | Outpatient (CLI) | payer OTHER | LOC: M WUC 08:40 | PROVIDERS: ATTEND Physician Assistant Medical | DX: R06.2 Wheezing (principal) ==

== ENCOUNTER → 2021-10-17 | Outpatient (CLI) | payer OTHER ==
[~2021-10-17] MED LIST changes: +AIMO70IN SQ; +HYDR-3713 PO; +IBUP200C25 PO; +LAMO100T3 PO; +RIZA10TA2 PO; +SERT200C PO
== END ==
LOC: M EKG 13:31
PROVIDERS: ATTEND Anesthesiology
DX: R94.31 Abnormal electrocardiogram [ECG] [EKG] (principal)

== ENCOUNTER → 2021-10-22 | Outpatient (CLI) | payer OTHER | LOC: M LABSMTC 10:06 | PROVIDERS: ATTEND Anesthesiology | DX: Z11.52 Encounter for screening for COVID-19 (principal) ==

== ENCOUNTER 2021-10-27 11:25 | Day surgery (SDC) | payer OTHER ==
[~2021-10-27] VITALS: Ht 162.6 cm; Wt 86.2 kg
[2021-10-27] MEDS ORDERED: CLINDAMYCIN 900 MG in IV 1 EA IV ONE (12:05)
[2021-10-27] MEDS ORDERED: ISOVUE-300 61% 50ML VIAL As Ordered ONE (12:29)
[2021-10-27] MEDS ORDERED: LIDOCAINE W/EPINEPHRINE 1% 20ML VIAL As Ordered ONE ×2 (12:29→13:35)
[2021-10-27] MEDS ORDERED: BUPIVACAINE HCL 0.25% 30ML VIAL As Ordered ONE (12:29)
[2021-10-27] MEDS ORDERED: MIDAZOLAM INJ 2MG/2ML VIAL (J2250 PER 1MG) As Ordered ONE ×2 (13:06→13:41)
[2021-10-27] MEDS ORDERED: fentaNYL 100 MCG/2 ML INJECTION As Ordered ONE (13:17)
[2021-10-27] MEDS ORDERED: ONDANSETRON 4MG 2ML VIAL As Ordered ONE (13:17)
[2021-10-27] MEDS ORDERED: METOCLOPRAMIDE INJ 10MG/2ML VIAL (J2765 PER 1) As Ordered ONE (13:17)
[2021-10-27] MEDS ORDERED: propofoL 200 MG/20 ML VIAL As Ordered ONE (13:17)
[2021-10-27] MEDS ORDERED: dexameTHASONE 4 MG/ML 1ML VIAL (J1100 PER 1MG) As Ordered ONE (13:17)
[2021-10-27] MEDS ORDERED: oxyCODONE 5MG TAB PO PRN (15:20)
[2021-10-27] MEDS ORDERED: fentaNYL 100 MCG/2 ML INJECTION IV PRN (15:20)
[2021-10-27] MEDS ORDERED: METOCLOPRAMIDE INJ 10MG/2ML VIAL (J2765 PER 1) IV PRN (15:20)
[2021-10-27] MEDS ORDERED: LR 1,000 ML IV SCH (15:20)
[2021-10-27] MEDS ORDERED: ONDANSETRON 4MG 2ML VIAL IV PRN (15:20)
[2021-10-27 15:50] VITALS: BP 115/71
== END 2021-10-27 16:16 | disposition home or self-care (01) ==
LOC: M SDC 11:25
PROVIDERS: ATTEND Anesthesiology
DX: M96.1 Postlaminectomy syndrome, not elsewhere classified (principal); M51.16 Intervertebral disc disorders with radiculopathy, lumbar region; R31.29 Other microscopic hematuria; Z87.442 Personal history of urinary calculi; R32 Unspecified urinary incontinence; R94.31 Abnormal electrocardiogram [ECG] [EKG]; F41.9 Anxiety disorder, unspecified; F32.A Depression, unspecified; F17.210 Nicotine dependence, cigarettes, uncomplicated; Z88.1 Allergy status to other antibiotic agents; Z91.018 Allergy to other foods; Z79.899 Other long term (current) drug therapy; Z79.891 Long term (current) use of opiate analgesic
CPT/HCPCS: 63650; 81025; C1778; J1100; J2250; J2405; J2765; J3010

== ENCOUNTER → 2021-10-31 | Outpatient (CLI) | payer OTHER | LOC: M PAIN 11:45 | PROVIDERS: ATTEND Anesthesiology | DX: M96.1 Postlaminectomy syndrome, not elsewhere classified (principal); G89.29 Other chronic pain; F17.210 Nicotine dependence, cigarettes, uncomplicated; Z96.89 Presence of other specified functional implants; Z86.59 Personal history of other mental and behavioral disorders; Z88.1 Allergy status to other antibiotic agents; Z79.899 Other long term (current) drug therapy | CPT/HCPCS: 76000; G0463 ==

== ENCOUNTER → 2021-11-26 | Outpatient (REF) | payer OTHER ==
[~2021-11-26] MED LIST changes: +DICY1CAP8 PO; +HYDR12.55 PO; +IBUP1TAB7 PO; +LAMI1TAB8 PO; +OMEP40CA4 PO; +RIZA5TAB2 PO; +ZOLO100T PO
== END ==
LOC: M LAB REF 16:34
PROVIDERS: ATTEND Internal Medicine Gastroenterology
DX: K58.2 Mixed irritable bowel syndrome (principal)

== ENCOUNTER → 2021-12-01 | Outpatient (CLI) | payer OTHER | LOC: M LABSMTC 11:52 | PROVIDERS: ATTEND Anesthesiology | DX: Z01.812 Encounter for preprocedural laboratory examination (principal); Z11.52 Encounter for screening for COVID-19 ==

== ENCOUNTER 2021-12-04 10:19 | Day surgery (SDC) | payer OTHER ==
[~2021-12-04] VITALS: Ht 162.6 cm; Wt 85.4 kg
[~2021-12-04 10:19] MED LIST changes: +NS 1,000 ML IV ONE
[2021-12-04] MEDS ORDERED: LIDOCAINE 2% 100MG/5ML SDV (FOR ANES.) As Ordered ONE (11:14)
[2021-12-04] MEDS ORDERED: propofoL 200 MG/20 ML VIAL As Ordered ONE (11:14)
[2021-12-04 11:56] VITALS: BP 113/59
== END 2021-12-04 12:05 | disposition home or self-care (01) ==
LOC: M OPP 10:19
PROVIDERS: ATTEND Internal Medicine Gastroenterology
DX: K64.8 Other hemorrhoids (principal); R93.3 Abnormal findings on diagnostic imaging of other parts of digestive tract; R10.13 Epigastric pain; Z79.1 Long term (current) use of non-steroidal anti-inflammatories (NSAID); Z79.891 Long term (current) use of opiate analgesic; Z79.899 Other long term (current) drug therapy; Z87.19 Personal history of other diseases of the digestive system; G43.909 Migraine, unspecified, not intractable, without status migrainosus; F17.210 Nicotine dependence, cigarettes, uncomplicated; Z87.442 Personal history of urinary calculi

== ENCOUNTER → 2021-12-28 | Outpatient (CLI) | payer OTHER ==
[~2021-12-28] MED LIST changes: -NS 1,000 ML IV ONE
== END ==
LOC: M LAB 15:01
PROVIDERS: ATTEND Physician Assistant
DX: S63.611A Unspecified sprain of left index finger, initial encounter (principal)

== ENCOUNTER → 2022-02-16 | Outpatient (CLI) | payer OTHER | LOC: M PAIN 09:00 | PROVIDERS: ATTEND Nurse Practitioner Family | DX: Z79.891 Long term (current) use of opiate analgesic (principal) ==

== ENCOUNTER → 2022-02-20 | Outpatient (CLI) | payer OTHER ==
[2022-02-20 17:56] LABS: BASO # 0.1 10^3/uL (0.0-0.2); EOS # 0.3 10^3/uL (0.0-0.5); EOS % 2.5 % (0.0-3.0); HEMATOCRIT 41.3 % (36.0-47.0); HEMOGLOBIN 13.3 g/dl (12.0-15.5); LYMPH # 3.9 10^3/uL (1.5-5.0); LYMPH % 38.7 % (24.0-44.0); MEAN CORPUSCULAR HEMOGLOBIN 29.9 pg (27.0-33.0); MEAN CORPUSCULAR HGB CONC 32.2 g/dl (32.0-36.5); MEAN CORPUSCULAR VOLUME 92.8 fl (80.0-96.0); MONO # 0.7 10^3/uL (0.0-0.8); MONO % 6.5 % (2.0-8.0); NEUTROPHILS # 5.1 10^3/uL (1.5-8.5); PLATELET COUNT, AUTOMATED 415 10^3/uL (150-450); RED BLOOD COUNT 4.45 10^6/uL (4.00-5.40)
[2022-02-20 18:24] LABS: ALBUMIN 3.6 G/DL (3.2-5.2); ALKALINE PHOSPHATASE 98 U/L (46-116); ALT/SGPT 13 U/L (7.0-40); AST/SGOT 15 U/L (<34); BILIRUBIN,TOTAL 0.2 MG/DL (0.3-1.2); BLOOD UREA NITROGEN 13 MG/DL (9-23); CALCIUM LEVEL 9.3 MG/DL (8.5-10.1); CARBON DIOXIDE LEVEL 22 MMOL/L (20-31); CHLORIDE LEVEL 109 MMOL/L (98-107); GLOMERULAR FILTRATION RATE > 60.0 (>60); GLUCOSE, FASTING 86 MG/DL (60-100); POTASSIUM SERUM 4.5 MMOL/L (3.5-5.1); SODIUM LEVEL 140 MMOL/L (136-145); TOTAL PROTEIN 6.6 G/DL (5.7-8.2)
== END ==
LOC: M WUC 15:19
PROVIDERS: ATTEND Physician Assistant
DX: Z01.818 Encounter for other preprocedural examination (principal); I10 Essential (primary) hypertension

== ENCOUNTER → 2022-04-15 | Outpatient (CLI) | payer OTHER | LOC: M PAIN 08:45 | PROVIDERS: ATTEND Anesthesiology | DX: M51.16 Intervertebral disc disorders with radiculopathy, lumbar region (principal); F17.210 Nicotine dependence, cigarettes, uncomplicated; Z96.89 Presence of other specified functional implants; Z86.59 Personal history of other mental and behavioral disorders; Z88.1 Allergy status to other antibiotic agents; Z79.899 Other long term (current) drug therapy ==

== ENCOUNTER → 2022-04-29 | Outpatient (CLI) | payer OTHER | LOC: M PAIN 08:45 | PROVIDERS: ATTEND Anesthesiology | DX: M51.16 Intervertebral disc disorders with radiculopathy, lumbar region (principal); M79.10 Myalgia, unspecified site; M79.18 Myalgia, other site; K21.9 Gastro-esophageal reflux disease without esophagitis; F41.9 Anxiety disorder, unspecified; F32.A Depression, unspecified; F17.210 Nicotine dependence, cigarettes, uncomplicated; R32 Unspecified urinary incontinence; Z87.442 Personal history of urinary calculi; Z79.899 Other long term (current) drug therapy; Z88.2 Allergy status to sulfonamides; Z88.1 Allergy status to other antibiotic agents ==

== ENCOUNTER → 2022-05-07 | Outpatient (REF) | payer OTHER | LOC: M LAB REF 17:59 | PROVIDERS: ATTEND Physician Assistant Medical | DX: J01.90 Acute sinusitis, unspecified (principal) ==

== ENCOUNTER → 2022-05-29 | Outpatient (CLI) | payer OTHER | LOC: M PAIN 09:30 | PROVIDERS: ATTEND Nurse Practitioner Family | DX: M96.1 Postlaminectomy syndrome, not elsewhere classified (principal); K21.9 Gastro-esophageal reflux disease without esophagitis; F41.9 Anxiety disorder, unspecified; F32.A Depression, unspecified; F17.210 Nicotine dependence, cigarettes, uncomplicated; Z79.899 Other long term (current) drug therapy; Z88.2 Allergy status to sulfonamides; Z88.8 Allergy status to other drugs, medicaments and biological substances ==

== ENCOUNTER → 2022-06-03 | Outpatient (CLI) | payer OTHER | LOC: M PLAIMG 09:09 | PROVIDERS: ATTEND Urology | DX: N20.0 Calculus of kidney (principal) ==

== ENCOUNTER → 2022-06-03 | Outpatient (CLI) | payer OTHER | LOC: M PLAIMG 09:06 | PROVIDERS: ATTEND Physician Assistant | DX: R06.3 Periodic breathing (principal) ==

== ENCOUNTER → 2022-06-26 | Outpatient (CLI) | payer OTHER | LOC: M PAIN 09:15 | PROVIDERS: ATTEND Nurse Practitioner Family | DX: M96.1 Postlaminectomy syndrome, not elsewhere classified (principal); K21.9 Gastro-esophageal reflux disease without esophagitis; F41.9 Anxiety disorder, unspecified; F32.A Depression, unspecified; F17.210 Nicotine dependence, cigarettes, uncomplicated; Z79.899 Other long term (current) drug therapy; Z88.2 Allergy status to sulfonamides; Z88.8 Allergy status to other drugs, medicaments and biological substances ==

== ENCOUNTER → 2022-07-09 | Outpatient (CLI) | payer OTHER | LOC: M RAD 10:02 | PROVIDERS: ATTEND Physician Assistant Medical | DX: J32.9 Chronic sinusitis, unspecified (principal) ==

== ENCOUNTER → 2022-07-27 | Outpatient (CLI) | payer OTHER ==
[~2022-07-27] MED LIST changes: +FLUO20CA22 PO; +GABA600T4 PO
== END ==
LOC: M TMPAIN 10:30 → M PAIN 10:30
PROVIDERS: ATTEND Nurse Practitioner Family
DX: M96.1 Postlaminectomy syndrome, not elsewhere classified (principal); G89.29 Other chronic pain; K21.9 Gastro-esophageal reflux disease without esophagitis; F41.9 Anxiety disorder, unspecified; F32.A Depression, unspecified; R32 Unspecified urinary incontinence; Z87.442 Personal history of urinary calculi; Q61.5 Medullary cystic kidney; F17.210 Nicotine dependence, cigarettes, uncomplicated; Z79.899 Other long term (current) drug therapy; Z88.2 Allergy status to sulfonamides; Z88.1 Allergy status to other antibiotic agents

== ENCOUNTER 2022-08-13 09:31 | Day surgery (SDC) | payer OTHER ==
[~2022-08-13] VITALS: Ht 162.6 cm; Wt 86.5 kg
[2022-08-13] MEDS ORDERED: LR 1,000 ML IV SCH ×2 (10:10→12:20)
[2022-08-13] MEDS ORDERED: PHENYLEPHRINE 0.5% NASAL SPRAY 15 ML As Ordered ONE (11:36)
[2022-08-13] MEDS ORDERED: CIPRODEX OTIC SUSP 7.5ML As Ordered ONE (11:37)
[2022-08-13] MEDS ORDERED: MIDAZOLAM INJ 2MG/2ML VIAL As Ordered ONE (11:59)
[2022-08-13] MEDS ORDERED: propofoL 200 MG/20 ML VIAL As Ordered ONE (11:59)
[2022-08-13] MEDS ORDERED: ONDANSETRON 4MG 2ML VIAL As Ordered ONE (11:59)
[2022-08-13] MEDS ORDERED: fentaNYL 100 MCG/2 ML INJECTION As Ordered ONE (11:59)
[2022-08-13] MEDS ORDERED: LIDOCAINE 2% 100MG/5ML SDV (FOR ANES.) As Ordered ONE (11:59)
[2022-08-13] MEDS ORDERED: KETOROLAC 60MG 2ML VIAL As Ordered ONE (12:01)
[2022-08-13] MEDS ORDERED: fentaNYL 100 MCG/2 ML INJECTION IV PRN (12:20)
[2022-08-13] MEDS ORDERED: oxyCODONE 5MG TAB PO PRN (12:20)
[2022-08-13] MEDS ORDERED: ONDANSETRON 4MG 2ML VIAL IV PRN (12:20)
[2022-08-13] MEDS: HYDROMORPHONE HCL 0.5 MG/ 0.5 ML SYRINGE IV PRN ×2 (12:36→12:43)
[2022-08-13 13:20] VITALS: BP 135/74; TEMP 97.2; O2SAT 98
== END 2022-08-13 13:45 | disposition home or self-care (01) ==
LOC: M SDC 09:31
PROVIDERS: ATTEND Otolaryngology
DX: H65.31 Chronic mucoid otitis media, right ear (principal); J31.0 Chronic rhinitis; R12 Heartburn; K21.9 Gastro-esophageal reflux disease without esophagitis; F17.219 Nicotine dependence, cigarettes, with unspecified nicotine-induced disorders; Z79.899 Other long term (current) drug therapy; Z79.52 Long term (current) use of systemic steroids; Z88.1 Allergy status to other antibiotic agents
CPT/HCPCS: 69436; 81025; J1100; J1170; J1885; J2250; J2405; J3010

== ENCOUNTER 2022-09-03 08:58 | Emergency (ER) | payer OTHER ==
[~2022-09-03] VITALS: Ht 162.6 cm; Wt 88.5 kg
[2022-09-03 09:08] VITALS: BP 134/76; TEMP 96.9; O2SAT 98
== END 2022-09-03 09:29 | disposition left against medical advice (07) ==
LOC: M ED 08:58
DX: Z53.21 Procedure and treatment not carried out due to patient leaving prior to being seen by health care provider (principal)

== ENCOUNTER → 2022-09-29 | Outpatient (CLI) | payer OTHER | LOC: M PAIN 14:45 | PROVIDERS: ATTEND Nurse Practitioner Family | DX: M79.18 Myalgia, other site (principal); G89.29 Other chronic pain; K21.9 Gastro-esophageal reflux disease without esophagitis; F41.9 Anxiety disorder, unspecified; F32.A Depression, unspecified; F17.210 Nicotine dependence, cigarettes, uncomplicated; Z79.1 Long term (current) use of non-steroidal anti-inflammatories (NSAID); Z79.899 Other long term (current) drug therapy; Z88.2 Allergy status to sulfonamides; Z88.1 Allergy status to other antibiotic agents ==

== ENCOUNTER → 2023-02-11 | Outpatient (CLI) | payer OTHER | LOC: M SLEEP HO 11:02 | PROVIDERS: ATTEND Physician Assistant | DX: R06.83 Snoring (principal); R40.0 Somnolence ==

== ENCOUNTER → 2023-04-20 | Outpatient (REF) | payer OTHER | LOC: M LAB REF 20:22 | PROVIDERS: ATTEND Physician Assistant | DX: R30.0 Dysuria (principal) ==

== ENCOUNTER → 2023-04-20 | Outpatient (REF) | payer OTHER | LOC: M LAB REF 20:37 | PROVIDERS: ATTEND Physician Assistant | DX: R30.0 Dysuria (principal) ==

== ENCOUNTER → 2023-08-11 | Outpatient (REF) | payer OTHER ==
[~2023-08-11] MED LIST changes: +FLUO-365 PO; -FLUO20CA22 PO
[2023-08-11 13:39] LABS: Trichomonas vaginalis (AMP) NOT DETECTED (NEGATIVE)
[2023-08-11 14:02] LABS: GC DNA AMPLIFICATION NEGATIVE (NEGATIVE)
== END ==
LOC: M LAB REF 11:28
PROVIDERS: ATTEND Nurse Practitioner Family
DX: R30.0 Dysuria (principal); Z11.3 Encounter for screening for infections with a predominantly sexual mode of transmission

== ENCOUNTER → 2023-08-23 | Outpatient (CLI) | payer OTHER | LOC: M RAD 10:15 | PROVIDERS: ATTEND Physician Assistant Medical | DX: E28.2 Polycystic ovarian syndrome (principal); N97.0 Female infertility associated with anovulation ==

== ENCOUNTER → 2023-09-06 | Outpatient (REF) | payer OTHER ==
[2023-09-06 13:02] LABS: LUTEINIZING HORMONE 5.1 mIU/ML
== END ==
LOC: M LAB REF 12:07
PROVIDERS: ATTEND Advanced Practice Midwife
DX: N83.209 Unspecified ovarian cyst, unspecified side (principal)

== ENCOUNTER → 2023-09-07 | Outpatient (CLI) | payer OTHER ==
[2023-09-07 17:53] LABS: C REACTIVE PROTEIN QUANTITATIV 0.8 MG/DL (<1.0); RHEUMATOID FACTOR QUANT 6.6 IU/ML (<14)
== END ==
LOC: M WUC 13:53
PROVIDERS: ATTEND Physician Assistant
DX: M13.0 Polyarthritis, unspecified (principal); H04.123 Dry eye syndrome of bilateral lacrimal glands

== ENCOUNTER → 2023-09-30 | Outpatient (CLI) | payer OTHER | LOC: M WUC 15:24 | PROVIDERS: ATTEND Physician Assistant | DX: M13.0 Polyarthritis, unspecified (principal); R53.83 Other fatigue ==

== ENCOUNTER → 2023-11-12 | Outpatient (CLI) | payer OTHER ==
[~2023-11-12] MED LIST changes: +GABA-1490 PO; -GABA600T4 PO
[2023-11-17 01:07] LABS: IgG P18 AB NON-REACTIVE; IgG P23 AB NON-REACTIVE; IgG P28 AB NON-REACTIVE; IgG P30 AB NON-REACTIVE; IgG P39 AB NON-REACTIVE; IgG P41 AB REACTIVE; IgG P45 AB NON-REACTIVE; IgG P58 AB NON-REACTIVE; IgG P66 AB NON-REACTIVE; IgG P93 AB NON-REACTIVE; IgM P23 AB NON-REACTIVE; IgM P39 AB NON-REACTIVE; IgM P41 AB NON-REACTIVE; LYME IgG WB INTERPRETATION NEGATIVE (NEGATIVE); LYME IgM WB INTERPRETATION NEGATIVE (NEGATIVE)
== END ==
LOC: M WUC 13:31
PROVIDERS: ATTEND Physician Assistant
DX: M13.0 Polyarthritis, unspecified (principal)

== ENCOUNTER → 2023-11-17 | Outpatient (CLI) | payer OTHER ==
[2023-11-17 17:50] LABS: HEMATOCRIT 39.1 % (36.0-47.0); HEMOGLOBIN 12.3 g/dl (12.0-15.5); MEAN CORPUSCULAR HEMOGLOBIN 28.9 pg (27.0-33.0); MEAN CORPUSCULAR HGB CONC 31.5 g/dl (32.0-36.5); MEAN CORPUSCULAR VOLUME 91.8 fl (80.0-96.0); PLATELET COUNT, AUTOMATED 382 10^3/uL (150-450); RED BLOOD COUNT 4.26 10^6/uL (4.00-5.40)
[2023-11-17 18:08] LABS: ALBUMIN 3.9 G/DL (3.2-5.2); ALKALINE PHOSPHATASE 112 U/L (46-116); ALT/SGPT 14 U/L (7.0-40); AST/SGOT 13 U/L (<34); BILIRUBIN,TOTAL 0.2 MG/DL (0.3-1.2); BLOOD UREA NITROGEN 14 MG/DL (9-23); CALCIUM LEVEL 9.7 MG/DL (8.5-10.1); CARBON DIOXIDE LEVEL 30 MMOL/L (20-31); CHLORIDE LEVEL 112 MMOL/L (98-107); CREATININE FOR GFR 0.68 MG/DL (0.55-1.30); GLOMERULAR FILTRATION RATE > 60.0 (>60); GLUCOSE, FASTING 68 MG/DL (60-100); POTASSIUM SERUM 3.7 MMOL/L (3.5-5.1); SODIUM LEVEL 143 MMOL/L (136-145); TOTAL PROTEIN 6.7 G/DL (5.7-8.2)
[2023-11-18 07:08] LABS: WHITE BLOOD COUNT 10.6 10^3/uL (4.0-10.0)
== END ==
LOC: M WUC 11:47
PROVIDERS: ATTEND Physician Assistant
DX: D72.829 Elevated white blood cell count, unspecified (principal)

== ENCOUNTER → 2024-01-03 | Outpatient (CLI) | payer OTHER | LOC: M WUC 15:54 | PROVIDERS: ATTEND Physician Assistant | DX: M13.0 Polyarthritis, unspecified (principal) ==

== ENCOUNTER → 2024-01-27 | Outpatient (REF) | payer OTHER | LOC: M LAB REF 17:25 | PROVIDERS: ATTEND Advanced Practice Midwife | DX: N80.00 Endometriosis of the uterus, unspecified (principal) ==

== ENCOUNTER → 2024-02-09 | Outpatient (REF) | payer OTHER ==
[2024-02-09 13:13] LABS: APPEARANCE, URINE CLEAR (CLEAR); BACTERIA, URINE AUTO 1+ (NEGATIVE); BILIRUBIN, URINE AUTO NEGATIVE (NEGATIVE); BLOOD, URINE BLOOD NEGATIVE (NEGATIVE); COLOR, URINE YELLOW (YELLOW); GLUCOSE, URINE (UA) AUTO NEGATIVE (NEGATIVE); KETONE, URINE AUTO NEGATIVE (NEGATIVE); LEUKOCYTE ESTERASE, URINE AUTO NEGATIVE (NEGATIVE); MUCUS, URINE SMALL (NEGATIVE); NITRITE, URINE AUTO NEGATIVE (NEGATIVE); PROTEIN, URINE AUTO NEGATIVE (NEGATIVE); RBC, URINE AUTO 0 /HPF (0-3); SPECIFIC GRAVITY URINE AUTO 1.006 (1.002-1.035); SQUAMOUS EPITHELIAL CELL UR AU 1 /HPF (0-6); UROBILINOGEN, URINE AUTO 0.2 mg/dL (0.0-2.0); WBC, URINE AUTO 1 /HPF (0-3)
== END ==
LOC: M SMT 12:37
PROVIDERS: ATTEND Nurse Practitioner Family
DX: Z87.440 Personal history of urinary (tract) infections (principal); R31.0 Gross hematuria; R87.610 Atypical squamous cells of undetermined significance on cytologic smear of cervix (ASC-US); R82.89 Other abnormal findings on cytological and histological examination of urine

== ENCOUNTER → 2024-02-21 | Outpatient (CLI) | payer OTHER | LOC: M PLAIMG 13:58 | PROVIDERS: ATTEND Nurse Practitioner Family | DX: N20.0 Calculus of kidney (principal); R91.1 Solitary pulmonary nodule; Z90.49 Acquired absence of other specified parts of digestive tract ==

== ENCOUNTER → 2024-04-04 | Outpatient (CLI) | payer OTHER ==
[2024-04-04 17:11] LABS: FOLLICLE STIMULATING HORMONE 63.4 mIU/ML; THYROID STIMULATING HORMONE 1.286 uIU/ML (0.55-4.78)
[2024-04-04 17:12] LABS: ESTRADIOL 40.6 PG/ML; FREE T4 1.14 NG/DL (0.89-1.76)
[2024-04-04 17:13] LABS: CORTISOL PM 19.3 UG/DL (3.1-16.7)
[2024-04-05 06:56] LABS: PROGESTERONE 5.22 NG/ML
== END ==
LOC: M WUC 14:10
PROVIDERS: ATTEND Obstetrics & Gynecology
DX: N95.1 Menopausal and female climacteric states (principal); R53.83 Other fatigue; F52.0 Hypoactive sexual desire disorder

== ENCOUNTER → 2024-04-04 | Outpatient (CLI) | payer OTHER | LOC: M WUC 14:16 | PROVIDERS: ATTEND Physician Assistant | DX: R53.83 Other fatigue (principal); W55.01XS Bitten by cat, sequela ==

== ENCOUNTER → 2024-05-18 | Outpatient (CLI) | payer OTHER ==
[~2024-05-18] MED LIST changes: +ACET-841 PO; +AMPH1CAP14 PO; +AMPH1CAP9 PO; +BUPR150T12 PO; +CENT1TAB PO; +DULO1CAP5 PO; +DULO1CAP6 PO; +ESTR2TAB3 PO; +INDA1.253 PO; +MACR100C43 PO; +OXYB5TAB14 PO; +PROG1CAP8 PO; +PYRI1TAB5 PO; +VITA-176 PO
[2024-05-18 14:50] LABS: APPEARANCE, URINE CLOUDY (CLEAR); BACTERIA, URINE AUTO 1+ (NEGATIVE); BILIRUBIN, URINE AUTO NEGATIVE (NEGATIVE); BLOOD, URINE BLOOD NEGATIVE (NEGATIVE); COLOR, URINE AMBER (YELLOW); GLUCOSE, URINE (UA) AUTO NEGATIVE (NEGATIVE); KETONE, URINE AUTO TRACE mg/dL (NEGATIVE); LEUKOCYTE ESTERASE, URINE AUTO NEGATIVE (NEGATIVE); MUCUS, URINE SMALL (NEGATIVE); NITRITE, URINE AUTO NEGATIVE (NEGATIVE); PROTEIN, URINE AUTO 1+ mg/dL (NEGATIVE); RBC, URINE AUTO 1 /HPF (0-3); SPECIFIC GRAVITY URINE AUTO 1.023 (1.002-1.035); SQUAMOUS EPITHELIAL CELL UR AU 16 /HPF (0-6); UROBILINOGEN, URINE AUTO 0.2 mg/dL (0.0-2.0); WBC, URINE AUTO 9 /HPF (0-3)
[2024-05-18 14:54] LABS: HEMATOCRIT 43.1 % (36.0-47.0); HEMOGLOBIN 13.9 g/dl (12.0-15.5); MEAN CORPUSCULAR HEMOGLOBIN 28.5 pg (27.0-33.0); MEAN CORPUSCULAR HGB CONC 32.3 g/dl (32.0-36.5); MEAN CORPUSCULAR VOLUME 88.5 fl (80.0-96.0); PLATELET COUNT, AUTOMATED 430 10^3/uL (150-450); RED BLOOD COUNT 4.87 10^6/uL (4.00-5.40); WHITE BLOOD COUNT 13.6 10^3/uL (4.0-10.0)
[2024-05-18 15:18] LABS: BLOOD UREA NITROGEN 16 MG/DL (9-23); CALCIUM LEVEL 9.6 MG/DL (8.5-10.1); CARBON DIOXIDE LEVEL 29 MMOL/L (20-31); CHLORIDE LEVEL 103 MMOL/L (98-107); CREATININE FOR GFR 0.68 MG/DL (0.55-1.30); GLOMERULAR FILTRATION RATE > 60.0 (>60); GLUCOSE, FASTING 84 MG/DL (60-100); POTASSIUM SERUM 3.9 MMOL/L (3.5-5.1); SODIUM LEVEL 141 MMOL/L (136-145)
== END ==
LOC: M PLALAB 10:34
PROVIDERS: ATTEND Nurse Practitioner Family
DX: Z01.818 Encounter for other preprocedural examination (principal); Z96.82 Presence of neurostimulator

== ENCOUNTER → 2024-05-22 | Outpatient (CLI) | payer OTHER ==
[~2024-05-22] MED LIST changes: -MACR100C43 PO; -OXYB5TAB14 PO; -PYRI1TAB5 PO
== END ==
LOC: M EKG 12:26
PROVIDERS: ATTEND Nurse Practitioner Family
DX: Z01.818 Encounter for other preprocedural examination (principal)

== ENCOUNTER 2024-05-25 08:30 | Day surgery (SDC) | payer OTHER ==
[~2024-05-25] VITALS: Ht 162.6 cm; Wt 84.3 kg
[2024-05-25] MEDS ORDERED: LR 1,000 ML IV SCH (09:00)
[2024-05-25] MEDS ORDERED: ONDANSETRON 4MG 2ML VIAL As Ordered ONE (09:25)
[2024-05-25] MEDS ORDERED: propofoL 200 MG/20 ML VIAL As Ordered ONE (09:25)
[2024-05-25] MEDS ORDERED: LIDOCAINE 2% 100MG/5ML SDV (FOR ANES.) As Ordered ONE (09:25)
[2024-05-25] MEDS ORDERED: MIDAZOLAM INJ 2MG/2ML VIAL As Ordered ONE (09:27)
[2024-05-25] MEDS ORDERED: fentaNYL 100 MCG/2 ML INJECTION As Ordered ONE (09:28)
[2024-05-25] MEDS: CIPROFLOXACIN 400 MG in IV 1 EA IV ONE (10:00)
[2024-05-25] MEDS: ISOVUE-300 61% 100ML VIAL As Ordered ONE (10:05)
[2024-05-25] MEDS ORDERED: ACETAMINOPHEN 1000MG/100ML IV BAG As Ordered ONE (10:12)
[2024-05-25] MEDS ORDERED: MACR100C43 PO (10:29)
[2024-05-25] MEDS ORDERED: PYRI1TAB5 PO (10:29)
[2024-05-25] MEDS ORDERED: OXYB5TAB14 PO (10:29)
[2024-05-25] MEDS: fentaNYL 100 MCG/2 ML INJECTION IV PRN (10:35)
[2024-05-25] MEDS: oxyCODONE 5MG TAB PO PRN (11:01)
[2024-05-25] MEDS: KETOROLAC 30 MG/ML 1ML VIAL IV ONE (11:05)
[2024-05-25] MEDS: ONDANSETRON 4MG 2ML VIAL IV PRN (11:09)
[2024-05-25 11:45] VITALS: BP 133/81; TEMP 97.4; O2SAT 96
== END 2024-05-25 12:30 | disposition home or self-care (01) ==
LOC: M SDC 08:30
PROVIDERS: ATTEND Urology
DX: N20.1 Calculus of ureter (principal); R06.02 Shortness of breath; Z88.2 Allergy status to sulfonamides; Z88.1 Allergy status to other antibiotic agents; Z79.899 Other long term (current) drug therapy; F17.210 Nicotine dependence, cigarettes, uncomplicated
CPT/HCPCS: 52356; 76000; 82365; C2617; J0131; J0744; J1100; J1885; J2250; J2405; J3010; Q9967

== ENCOUNTER → 2024-05-29 | Outpatient (REF) | payer OTHER ==
[~2024-05-29] MED LIST changes: +MACR100C43 PO; +OXYB5TAB14 PO; +PYRI1TAB5 PO
[2024-05-30 13:49] LABS: APPEARANCE, URINE CLOUDY (CLEAR); BACTERIA, URINE AUTO 1+ (NEGATIVE); BILIRUBIN, URINE AUTO NEGATIVE (NEGATIVE); BLOOD, URINE BLOOD 3+ (NEGATIVE); CALCIUM OXALATE CRYSTALS SMALL; COLOR, URINE RED (YELLOW); GLUCOSE, URINE (UA) AUTO 1+ mg/dL (NEGATIVE); KETONE, URINE AUTO NEGATIVE (NEGATIVE); LEUKOCYTE ESTERASE, URINE AUTO 1+ (NEGATIVE); MUCUS, URINE SMALL (NEGATIVE); NITRITE, URINE AUTO POSITIVE (NEGATIVE); PROTEIN, URINE AUTO 3+ mg/dL (NEGATIVE); RBC, URINE AUTO TNTC /HPF (0-3); SQUAMOUS EPITHELIAL CELL UR AU 6 /HPF (0-6); WBC, URINE AUTO TNTC /HPF (0-3)
== END ==
LOC: M SMT 12:41
PROVIDERS: ATTEND Physician Assistant
DX: R39.9 Unspecified symptoms and signs involving the genitourinary system (principal)

== ENCOUNTER → 2024-07-26 | Outpatient (CLI) | payer OTHER ==
[~2024-07-26] MED LIST changes: +CHOL25TA15 PO; -VITA-176 PO
[2024-07-26 11:00] LABS: HEMATOCRIT 37.7 % (36.0-47.0); HEMOGLOBIN 12.6 g/dl (12.0-15.5); MEAN CORPUSCULAR HEMOGLOBIN 29.4 pg (27.0-33.0); MEAN CORPUSCULAR HGB CONC 33.4 g/dl (32.0-36.5); MEAN CORPUSCULAR VOLUME 88.1 fl (80.0-96.0); PLATELET COUNT, AUTOMATED 348 10^3/uL (150-450); RED BLOOD COUNT 4.28 10^6/uL (4.00-5.40); WHITE BLOOD COUNT 9.8 10^3/uL (4.0-10.0)
[2024-07-26 11:05] LABS: ERYTHROCYTE SEDIMENTATION RATE 9 mm/hr (0-20)
[2024-07-26 11:26] LABS: ATYPICAL LYMPH 3 % (0-5); BASOPHILS 1 % (0-1); EOSINOPHILS 7 % (0-3); LYMPHOCYTES 38 % (16-44); MONOCYTES 7 % (0-5); NEUTROPHILS 43 % (28-66); PLASMA CELL 1 % (0-0)
[2024-07-26 11:27] LABS: PLATELET ESTIMATE NORMAL (NORMAL)
[2024-07-26 11:45] LABS: C REACTIVE PROTEIN QUANTITATIV 0.54 MG/DL (<1.0)
[2024-07-26 11:48] LABS: HEPATITIS B SURFACE ANTIBODY POSITIVE (POSITIVE)
[2024-07-26 11:57] LABS: HEPATITIS B SURFACE ANTIGEN NEGATIVE (NEGATIVE)
[2024-07-26 12:10] LABS: HIV 1&2 SCREEN NEGATIVE (NEGATIVE)
[2024-07-26 12:19] LABS: HEPATITIS C VIRUS ABY INDEX 0.07 INDEX (<0.8); IMMUNOGLOBULIN A 111.8 MG/DL (40-350); IMMUNOGLOBULIN G 599 MG/DL (650-1600); IMMUNOGLOBULIN M 92.5 MG/DL (50-300)
[2024-07-28 14:53] LABS: HEPATITIS A IgG TOTAL REACTIVE (NON-REACTIVE); HEPATITIS B CORE ANTIBODY IGG NON-REACTIVE (NON-REACTIVE)
== END ==
LOC: M RAD 10:04
PROVIDERS: ATTEND Internal Medicine Infectious Disease
DX: D80.1 Nonfamilial hypogammaglobulinemia (principal); M25.541 Pain in joints of right hand; M25.542 Pain in joints of left hand; L81.8 Other specified disorders of pigmentation; B99.9 Unspecified infectious disease; M54.41 Lumbago with sciatica, right side; M47.817 Spondylosis without myelopathy or radiculopathy, lumbosacral region

== ENCOUNTER → 2024-09-21 | Outpatient (CLI) | payer OTHER ==
[2024-09-21 14:13] LABS: PLATELET COUNT, AUTOMATED 404 10^3/uL (150-450)
[2024-09-21 14:44] LABS: ATYPICAL LYMPH 5 % (0-5); EOSINOPHILS 6 % (0-3); LYMPHOCYTES 41 % (16-44); MONOCYTES 7 % (0-5); NEUTROPHILS 41 % (28-66)
[2024-09-21 14:45] LABS: PLATELET ESTIMATE NORMAL (NORMAL)
[2024-09-24 13:42] LABS: IgG SERUM (part of Subclasses) 691.0 mg/dL (600-1640)
[2024-09-25 22:22] LABS: ANTI TETANUS ANTIBODY 1.16 IU/mL (>=0.10)
[2024-09-28 01:06] LABS: STREP PNEUMO TYPE 1 < 0.1 ug/mL (>1.3); STREP PNEUMO TYPE 12F < 0.1 ug/mL (>1.3); STREP PNEUMO TYPE 14 < 0.1 ug/mL (>1.3); STREP PNEUMO TYPE 18C < 0.1 ug/mL (>1.3); STREP PNEUMO TYPE 19F 0.4 ug/mL (>1.3); STREP PNEUMO TYPE 23F < 0.1 ug/mL (>1.3); STREP PNEUMO TYPE 3 < 0.1 ug/mL (>1.3); STREP PNEUMO TYPE 4 < 0.1 ug/mL (>1.3); STREP PNEUMO TYPE 5 1.3 ug/mL (>1.3); STREP PNEUMO TYPE 6B < 0.1 ug/mL (>1.3); STREP PNEUMO TYPE 7F < 0.1 ug/mL (>1.3); STREP PNEUMO TYPE 8 0.7 ug/mL (>1.3); STREP PNEUMO TYPE 9N 0.1 ug/mL (>1.3); STREP PNEUMO TYPE 9V < 0.1 ug/mL (>1.3)
== END ==
LOC: M WUC 11:00
PROVIDERS: ATTEND Internal Medicine Infectious Disease
DX: R76.8 Other specified abnormal immunological findings in serum (principal)

== ENCOUNTER → 2024-10-16 | Outpatient (CLI) | payer OTHER ==
[2024-10-16 19:04] LABS: BASO # 0.1 10^3/uL (0.0-0.2); BASO % 1.0 % (0.0-1.0); EOS # 0.5 10^3/uL (0.0-0.5); EOS % 4.1 % (0.0-3.0); LYMPH # 4.8 10^3/uL (1.5-5.0); LYMPH % 39.5 % (24.0-44.0); MONO # 1.1 10^3/uL (0.0-0.8); MONO % 9.2 % (2.0-8.0); NEUTROPHILS # 5.6 10^3/uL (1.5-8.5); NEUTROPHILS % 45.9 % (36.0-66.0); PLATELET COUNT, AUTOMATED 429 10^3/uL (150-450)
[2024-10-16 19:07] LABS: C REACTIVE PROTEIN QUANTITATIV 1.00 MG/DL (<1.0)
[2024-10-16 19:09] LABS: ALT/SGPT 17 U/L (7.0-40); AST/SGOT 19 U/L (<34); CALCIUM LEVEL 9.9 MG/DL (8.5-10.1); CARBON DIOXIDE LEVEL 30 MMOL/L (20-31); CHLORIDE LEVEL 104 MMOL/L (98-107); CREATININE FOR GFR 0.74 MG/DL (0.55-1.30); GLOMERULAR FILTRATION RATE > 90.0 (>60); POTASSIUM SERUM 4.4 MMOL/L (3.5-5.1); SODIUM LEVEL 143 MMOL/L (136-145)
[2024-10-16 19:11] LABS: ERYTHROCYTE SEDIMENTATION RATE 23 mm/hr (0-20)
[2024-10-16 19:34] LABS: IMMUNOGLOBULIN E 3.0 IU/ML (0-378)
== END ==
LOC: M WUC 14:07
PROVIDERS: ATTEND Internal Medicine Infectious Disease
DX: R23.8 Other skin changes (principal); R76.8 Other specified abnormal immunological findings in serum

== ENCOUNTER → 2024-11-16 | Outpatient (REF) | payer OTHER ==
[~2024-11-16] MED LIST changes: -IBUP-1022 PO; +IBUP600T42 PO
== END ==
LOC: M SFHCPLAZ 14:57
PROVIDERS: ATTEND Internal Medicine Infectious Disease
DX: N61.1 Abscess of the breast and nipple (principal)

== ENCOUNTER → 2025-01-15 | Outpatient (CLI) | payer OTHER | LOC: M WUC 13:34 | PROVIDERS: ATTEND Physician Assistant | DX: M25.572 Pain in left ankle and joints of left foot (principal) ==

== ENCOUNTER → 2025-02-05 | Outpatient (CLI) | payer OTHER ==
[2025-02-05 14:00] LABS: BASO # 0.1 10^3/uL (0.0-0.2); BASO % 1.1 % (0.0-1.0); EOS # 0.3 10^3/uL (0.0-0.5); EOS % 1.9 % (0.0-3.0); LYMPH # 4.3 10^3/uL (1.5-5.0); LYMPH % 32.9 % (24.0-44.0); MONO # 0.8 10^3/uL (0.0-0.8); MONO % 6.4 % (2.0-8.0); NEUTROPHILS # 7.5 10^3/uL (1.5-8.5); NEUTROPHILS % 57.4 % (36.0-66.0); PLATELET COUNT, AUTOMATED 481 10^3/uL (150-450)
[2025-02-05 14:29] LABS: ALT/SGPT 12 U/L (7.0-40); AST/SGOT 10 U/L (<34); C REACTIVE PROTEIN QUANTITATIV < 0.50 MG/DL (<1.0); CALCIUM LEVEL 9.5 MG/DL (8.5-10.1); CARBON DIOXIDE LEVEL 27 MMOL/L (20-31); CHLORIDE LEVEL 110 MMOL/L (98-107); CREATININE FOR GFR 0.59 MG/DL (0.55-1.30); GLOMERULAR FILTRATION RATE > 90.0 (>60); POTASSIUM SERUM 4.3 MMOL/L (3.5-5.1); SODIUM LEVEL 144 MMOL/L (136-145)
== END ==
LOC: M WUC 10:34
PROVIDERS: ATTEND Internal Medicine Infectious Disease
DX: B99.9 Unspecified infectious disease (principal); N61.1 Abscess of the breast and nipple